=== PATIENT | female | born 1970 ===

== ENCOUNTER 2018-09-18 16:41 | Emergency (ER) | payer OTHER ==
[2018-09-18 16:49] VITALS: BMI 43.0
[2018-09-18 16:50] VITALS: RESP 18; O2SAT 99
[2018-09-18 18:18] LABS: BASO # 0.1 K/uL (0.0-0.2); BASO % 0.9 % (0.0-2.0); EOS # 0.5 K/uL (0.0-0.7); EOS % 4.4 % (0.0-4.0); HEMOGLOBIN 11.7 g/dL (11.0-16.0); LYMPH # 2.4 K/uL (1.0-4.3); LYMPH % 21.7 % (20.0-40.0); MEAN CELL VOLUME 77.3 fL (81.0-99.0); MEAN CORPUSCULAR HEMOGLOBIN 24.6 pg (27.0-31.0); MEAN CORPUSCULAR HGB CONC 31.8 g/dL (33.0-37.0); MEAN PLATELET VOLUME 10.1 fL (7.2-11.7); MONO # 0.8 K/uL (0.0-0.8); MONO % 6.9 % (0.0-10.0); NEUT # 7.5 K/uL (1.8-7.0); NEUT % 66.1 % (50.0-75.0); RBC 4.76 Mil/uL (3.80-5.20); WHITE BLOOD COUNT 11.3 K/uL (4.8-10.8)
[2018-09-18 18:21] LABS: BLOOD UREA NITROGEN 20 mg/dL (7-17); CALCIUM 9.3 mg/dl (8.6-10.4); GFR NON-AFRICAN AMERICAN 59
[2018-09-18 18:23] LABS: INR 1.2; PROTHROMBIN TIME 13.2 SECONDS (9.7-12.2)
[2018-09-18 18:26] LABS: ALB/GLOB RATIO 0.9 (1.0-2.1); ALT/SGPT 19 U/L (9-52); AST/SGOT 41 U/L (14-36)
--- NOTE | 2018-09-18 18:29 | C.PDOC ---
History Of Present Illness 48 yo female w/PMhx of NIDDM, HTN, CAD come in for evaluation of L>R legs pain, Left hip, lower back pain gradually developed for past 3 days after sustained mechanical fall. Pt reports, slipped and fell down, landed onto left hip side. Pt sts, pain is worsen over days, more over L>R lower legs, worse with ambulation. Pt denies head injury, LOC, syncope, headache, dizziness, visual changes, focal deficits, neck pain, CP, SOB, palpitation, abd. pain, N/V, incontinence, saddle anesthesia, denies weakness, deformity, sensory or vascular deficits to B/L LES. Ambulate to Ed w/assistance of cane. <Carmen Hendrix - Last Filed: 09/18/18 18:58> History Per: Patient <Carmen Hendrix - Last Filed: 09/18/18 18:58> <Toyin Jack - Last Filed: 09/18/18 21:08> Time Seen by Provider: 09/18/18 17:19 Chief Complaint (Nursing): Lower Extremity Problem/Injury Past Medical History Reviewed: Historical Data, Nursing Documentation, Vital Signs Vital Signs: Last Vital Signs Temp 98.6 F 09/18/18 16:50 Pulse 89 09/18/18 16:50 Resp 18 09/18/18 16:50 BP 125/79 09/18/18 16:50 Pulse Ox 99 09/18/18 16:50 - Medical History PMH: Asthma, HTN, Hypercholesterolemia Family History: States: No Known Family Hx - Social History Hx Tobacco Use: No Hx Alcohol Use: No Hx Substance Use: No - Immunization History Hx Tetanus Toxoid Vaccination: No Hx Influenza Vaccination: No Hx Pneumococcal Vaccination: No <Carmen Hendrix - Last Filed: 09/18/18 18:58> Vital Signs: Last Vital Signs Temp 98.6 F 09/18/18 16:50 Pulse 89 09/18/18 16:50 Resp 18 09/18/18 16:50 BP 125/79 09/18/18 16:50 Pulse Ox 99 09/18/18 18:59 <Toyin Jack - Last Filed: 09/18/18 21:08> Review Of Systems Except As Marked, All Systems Reviewed And Found Negative. Constitutional: Negative for: Fever, Chills ENT: Negative for: Throat Pain, Throat Swelling Cardiovascular: Negative for: Chest Pain, Palpitations Respiratory: Negative for: Cough, Shortness of Breath, Wheezing Gastrointestinal: Negative for: Nausea, Vomiting, Abdominal Pain Genitourinary: Negative for: Incontinence Musculoskeletal: Positive for: Back Pain, Leg Pain. Negative for: Neck Pain Skin: Negative for: Bruising Neurological: Negative for: Weakness, Numbness, Altered Mental Status, Headache, Dizziness <Carmen Hendrix - Last Filed: 09/18/18 18:58> Physical Exam - Physical Exam Appears: Well, Non-toxic, No Acute Distress Skin: Normal Color, Warm, Dry, No Rash Head: Atraumatic, Normacephalic Eye(s): bilateral: PERRL Ear(s): Bilateral: Normal Nose: No Flaring, No Deformity, No Tenderness Oral Mucosa: Moist Throat: No Drooling Neck: Normal ROM, Trachea Midline, No Midline Cervical Tenderness, No Paracervical Tenderness, No Step Off Deformity, Supple Chest: Symmetrical, No Deformity, No Tenderness Cardiovascular: Rhythm Regular, No Murmur, No JVD Respiratory: No Decreased Breath Sounds, No Accessory Muscle Use, No Stridor, No Wheezing Gastrointestinal/Abdominal: Soft, No Tenderness, No Distention, No Guarding Back: No CVA Tenderness, No Vertebral Tenderness, Paraspinal Tenderness (diffuse lumbar) Extremity: Normal ROM, Tenderness (diffuse B/L lower legs tenderness L>R , tenderness overlying Left hip area. NO palpalbe defomrity, no skin changes.), Calf Tenderness (L>R), Capillary Refill (less than 2sec to B/L feet), No Deformity, Swelling (L>E lower leg extend down to ankle.) DTR: Knee (R): 2+, Knee (L): 2+, Ankle (R): 2+, Ankle (L): 2+ Neurological/Psych: Oriented x3, Normal Speech, Normal Motor, Normal Sensation, Normal Reflexes <Carmen Hendrix - Last Filed: 09/18/18 18:58> ED Course And Treatment - Laboratory Results Result Diagrams: 09/18/18 17:58 09/18/18 17:58 Urine POC: Negative O2 Sat by Pulse Oximetry: 99 Pulse Ox Interpretation: Normal Progress Note: At 18:30, was called by radiologist, high suspicion for L5-S1 fx, high recommend STAT MRI of Lspine <Carmen Hendrix - Last Filed: 09/18/18 18:58> - Laboratory Results Result Diagrams: 09/18/18 17:58 09/18/18 17:58 - Other Rad B/L hip X-Ray: Interpreted by Me Interpretation: No acute fx/dislocation noted B/L knee X-Ray: Interpreted by Me Interpretation: No acute fx/dislocation noted B/L tib/fib X-Ray: Interpreted by Me Interpretation: No acute fx/dislocation noted <Toyin Jack - Last Filed: 09/18/18 21:08> Disposition - Disposition Disposition Time: 18:58 <Carmen Hendrix - Last Filed: 09/18/18 18:58> <Toyin Jack - Last Filed: 09/18/18 21:08> - Disposition Disposition: HOME/ ROUTINE Condition: STABLE Additional Instructions: GAGANDEEP XIONG, thank you for letting us take care of you today. Your provider was Toyin Jack MD and you were treated for FALL LT LEG PAIN. The emergency medical care you received today was directed at your acute symptoms. If you were prescribed any medication, please fill it and take as directed. It may take several days for your symptoms to resolve. Return to the Emergency Department if your symptoms worsen, do not improve, or if you have any other problems. Please contact your doctor or call one of the physicians/clinics you have been referred to that are listed on the Patient Visit Information form that is included in your discharge packet. Bring any paperwork you were given at discharge with you along with any medications you are taking to your follow up visit. Our treatment cannot replace ongoing medical care by a primary care provider outside of the emergency department. Thank you for allowing the [facility] team to be part of your care today. If you had an X-Ray or CT scan: A Radiologist will review the ED reading if any change in treatment is needed we will contact you. If you had a blood, urine, or wound culture: It will take several days for the results, if any change in treatment is needed we will contact you. If you had an STI test: It will take 48 hours for the results. Please call after 1 week if you have not heard back. Instructions: Hip Pointer, Contusion (DC) Forms: [employer] (English) Print Language: INDIAN - Clinical Impression Clinical Impression: Back injury, Hip injury, Lower leg edema Physician Patient Turnover Patient Signed Over To: Toyin Jack Handoff Comments: MRI, xray, re-eval, dispo <Carmen Hendrix - Last Filed: 09/18/18 18:58> Addendum Addendum: 09/18/18 MRI results reviewed: Name: GAGANDEEP XIONG Exam Date: Sep 18, 2018 7:00:13 PM EDT Modality Type: MR\SD Description: MR - LUMBAR SPINE Gender: F Laterality: Not applicable : 68 Referring Physician: Carmen Hendrix (NATALIE) CLINICAL HISTORY: INJURY R/O L5 FX PT FELL 09/09/18 LBP GOES DOWN LT LEG WITH SWELLING. COMPARISON: Correlation is made with CT of the lumbar spine performed at same date. TECHNIQUE: MRI of the lumbar spine was performed utilizing multiple sequences in axial and sagittal planes without IV contrast material. COMMENTS: The visualized osseous elements are intact with no evidence of fracture. The marrow signals are within normal limits. The normal lordotic curvature of the lumbar spine is well maintained. The conus medullaris and cauda equina are within normal limits. There is transitional vertebral body and the study is interpreted with presumption that there is partial lumbarization of S1. There is grade-1 anterolisthesis of L5 over S1 measures 5 mm. There is multilevel degenerative spondylosis especially severe at L4-L5. At this level there is severe loss of disc space height present. There are type-2 Modic changes and anterior and posterior marginal osteophytosis. There is a 2 x 1.2 cm hemangioma seen within L1 vertebral body. Evaluation of individual levels present the following: L5-S1, there is a broad based disc osteophyte complex present. There is moderate bilateral foraminal stenosis and mild canal stenosis. Spondylolisthesis and bilateral hypertrophic facet disease is seen. L4-L5, annular tear with broad central herniated disc measures 4 mm indents the ventral thecal sac. Superimposed bulge is seen. There is mild to moderate bilateral foraminal stenosis. Canal is borderline stenotic. Hypertrophic facet disease and ligamentum flavum hypertrophy contribute. Bilateral facet joint effusions are present. L3-L4, central herniated disc measures up to 3 mm indents the ventral thecal sac. The canal and foramina are patent. L1-L2 and L2-L3 levels are unremarkable. IMPRESSION: 1. Transitional vertebral body and the study is interpreted with presumption that there is partial lumbarization of S1. 2. Grade-1 anterolisthesis of L5 over S1. 3. Hemangioma within L1 vertebral body. 4. L5-S1, broad based disc osteophyte complex. Moderate bilateral foraminal stenosis and mild canal stenosis. Spondylolisthesis and bilateral hypertrophic facet disease is seen. 5. L4-L5, annular tear with broad central herniated disc indents the ventral thecal sac. Superimposed bulge. Mild to moderate bilateral foraminal stenosis. Canal is borderline stenotic. Hypertrophic facet disease and ligamentum flavum hypertrophy contribute. Bilateral facet joint effusions are present. 6. L3-L4, central herniated disc indents the ventral thecal sac. Results discussed w/ patient. <Toyin Jack - Last Filed: 09/18/18 21:08>
[2018-09-18 18:49] LABS: SQUAMOUS EPITHIAL 3 /hpf (0-5); URINE BACTERIA RARE (<OCC); URINE BILIRUBIN NEGATIVE (NEGATIVE); URINE BLOOD NEGATIVE (NEGATIVE); URINE CLARITY Hazy (Clear); URINE COLOR Yellow (YELLOW); URINE GLUCOSE (UA) 1+ mg/dL (Normal); URINE LEUKOCYTE ESTERASE NEG Leu/uL (Negative); URINE PROTEIN 2+ mg/dL (NEGATIVE); URINE UROBILINOGEN NORMAL mg/dL (0.2-1.0)
[2018-09-18 20:38] VITALS: BP 133/69; PULSE 67
[2018-09-18 21:17] VITALS: TEMP 97.5
--- NOTE | 2018-09-19 08:49 | RAD ---
Date of service: 09/18/2018 PROCEDURE: Bilateral Knee Radiographs. HISTORY: Injury. COMPARISON: Present correlation made with concurrent radiographs of bilateral tibiae/fibulae. FINDINGS: BONES: No evidence displaced fracture nor dislocation. The osseous structures appear intact.. JOINTS: There is mild bilateral space narrowing SOFT TISSUES: Right Knee: Normal. Left Knee: Normal. JOINT EFFUSION: No significant joint effusions are identified. OTHER FINDINGS: Bilateral vascular calcifications are IMPRESSION: No evidence of displaced fracture. Mild degenerative osteoarthritis.
--- NOTE | 2018-09-19 09:00 | RAD ---
Date of service: 09/18/2018 PROCEDURE: Radiographs of the bilateral Tibiae and Fibulae. HISTORY: Injury COMPARISON: Correlation made with concurrent radiographs of both knees. TECHNIQUE: Frontal and lateral views obtained. FINDINGS: BONES: RIGHT TIBIA: No fracture or destructive lesion. LEFT TIBIA: No fracture or destructive lesion. JOINT SPACES: Mild joint space narrowing both knees. SOFT TISSUES: Vascular calcifications are present bilaterally... Small elliptical shaped calcifications within the pretibial soft tissues right tibia/fibula. OTHER FINDINGS: None. IMPRESSION: No evidence of acute displaced fracture nor dislocation
--- NOTE | 2018-09-19 09:29 | RAD ---
PROCEDURE: Radiographs of the pelvis and bilateral hips HISTORY: Injury COMPARISON: None. FINDINGS: BONES: Pelvis: Unremarkable. Right hip:Unremarkable. Left hip:Unremarkable. JOINTS: Minimal spurring along the superolateral margins of both acetabular roofs. Sacroiliac Joints: Unremarkable. Pubic symphysis: Unremarkable. SOFT TISSUES: Normal. OTHER FINDINGS: None. IMPRESSION: No evidence of acute displaced fracture nor dislocation.
--- NOTE | 2018-09-19 09:54 | CT ---
Date of service: 09/18/2018 PROCEDURE: CT Lumbar Spine without contrast HISTORY: Injury. COMPARISON: Correlation made with concurrent MRI of the lumbar spine. TECHNIQUE: Axial computed tomography images were obtained of the lumbar spine without the use of intravenous contrast. Coronal and sagittal reformatted images were created and reviewed. Radiation dose: Total exam DLP = 1873.72 mGy-cm. This CT exam was performed using one or more of the following dose reduction techniques: Automated exposure control, adjustment of the mA and/or kV according to patient size, and/or use of iterative reconstruction technique. FINDINGS: VERTEBRAE: No acute compression fractures nor retropulsed fragments.. Anterior subluxation of L4 over L5 with apparent degenerative partial fusion changes.. Vertebral bodies otherwise exhibit normal alignment. Facets normally aligned. Note made of a hemangioma within the T12 segment. DISCS/SPINAL CANAL/NEURAL FORAMINA: L1-2: Unremarkable. L2-3: Unremarkable. L3-4: There is disc space narrowing more so along the posterior disc margin with vacuum disc phenomena. Small central and bilateral broad-based disc bulge extends into the proximal inferior margins of both exit foramina. Minimal calcification either of the posterior longitudinal ligament or posterior annulus noted at this level. Changes result in mild flattening of the ventral surface of the thecal sac. Facet joints are hypertrophic. Exit foramina are mildly narrowed bilaterally. L4-5: There marked disc space narrowing and apparent partial degenerative fusion changes of the L4-L5 vertebral body segments persistent anterior subluxation L4 over L5. There appears to be slight uncovering of the posterior superior surface of disc due to the aforementioned anterior subluxation with associated small left parasagittal protrusion component which results in mild compressive effects on the left anterolateral border of thecal sac. These changes are seen to better advantage on concurrent MRI... Facet joints are hypertrophic. Central canal appears adequate however the exit foramina are stenotic bilaterally. L5-S1: Unremarkable. PARASPINAL SOFT TISSUES: Unremarkable. OTHER FINDINGS: None. IMPRESSION: No acute fractures. There is anterior subluxation L4 over L5 with apparent degenerative partial fusion changes L4-L5 vertebral body segments. Multilevel degenerative spondylosis most notably affecting the L4-L5 and L3-L4 levels as described.
--- NOTE | 2018-09-20 08:46 | MRI ---
Date of service: 09/18/2018 PROCEDURE: MR LUMBAR SPINE WITHOUT CONTRAST HISTORY: INJURY; RULE OUT L5 FRACTURE. COMPARISON: Correlation made with concurrent CT scan of the lumbar spine. TECHNIQUE: Multiecho multiplanar sequences were performed through the lumbar spine without the use of intravenous contrast. FINDINGS: The there are no acute compression fractures nor retropulsed fragments. Vertebral bodies exhibit relatively normal stature. Redemonstrated is an approximately grade 1 spondylolisthesis at the L4-L5 level felt to be secondary to significant hypertrophic facets as no definitive pars defects are identified. The remaining vertebral bodies otherwise exhibit normal alignment. Facets normally aligned.. Additionally, partial degenerative fusion changes. Of the L4-L5 vertebral body segments also again seen Small hemangioma again seen within the T12 segment T12-L1: Mild age related disc desiccation however disc space height maintained. No disc herniation or significant disc bulge. Facets are slightly overgrown. Central canal and exit foramina appear adequate L1-2: Mild age related disc desiccation however disc space height maintained. No disc herniation or significant disc bulge. Facets are slightly overgrown. Central canal and exit foramina appear adequate L2-3: There is mild disc desiccation and posterior disc space narrowing. Small central and left parasagittal disc herniation with superior subligamentous small disc herniation that extends to approximately the inferior 1/2 of the L2 vertebral body segment. Changes result in compression of the ventral surface of the thecal sac centrally and bilaterally at the disc space level and extending to the left as the subligamentous disc extends superiorly.. There is mild posterior displacement of ventrally located nerve roots of the cauda equina. The overall central bony canal does appear adequate however. Facets are hypertrophic. Exit foramina are also adequate despite extension of disc into the proximal inferior margins of both exit foramina. L3-4: There is disc space narrowing more so along the posterior disc space margin with mild subchondral cystic changes and eburnation. There is also some very minimal type 1 discogenic sclerosis more so involving the inferior L3 endplate. Small central and bilateral disc bulge associated with tiny calcification of the posterior annulus or posterior longitudinal ligament.. Disc extends into the proximal inferior margins of both exit foramina. There is mild compression of the ventral surface of the thecal sac. Central canal is marginal to minimally narrowed. Facets are hypertrophic. Exit foramina are also narrowed more so on the right due to encroaching disc L4-5: In addition to grade 1 spondylolisthesis, there is significant disc space narrowing with what appears represent partial fusion changes of the L4-L5 segments. There is uncovering of the posterior superior surface of the disc due to the anterior subluxation. In addition, there is a small left parasagittal disc herniation component that extends inferiorly over short distance dorsal to the superior left parasagittal 1/2 of the L5 segment and results in mild compressive effects on the left anterolateral border of the thecal sac. Type 2 discogenic sclerosis present of. Facets are quite hypertrophic with bilateral foraminal stenosis. L5-S1: No disc herniation, spinal canal stenosis or neural foraminal narrowing. OTHER FINDINGS: None. IMPRESSION: No acute fractures however there is grade 1 spondylolisthesis L4-L5 level with what appears to be partial fusion changes of the L4 and L5 segments. Degenerative disc changes with bilateral foraminal stenosis present at this level as well as the L 3 L4 level. There is also a small disk herniation at the L2-L3 level with superior subligamentous extension of disc material as detailed above.
== END 2018-09-18 21:22 | disposition home or self-care (01) ==
LOC: C.ER 16:41
DX: S39.92XA Unspecified injury of lower back, initial encounter (principal); S79.912A Unspecified injury of left hip, initial encounter; W01.0XXA Fall on same level from slipping, tripping and stumbling without subsequent striking against object, initial encounter; R60.0 Localized edema; I10 Essential (primary) hypertension; I25.10 Atherosclerotic heart disease of native coronary artery without angina pectoris; E11.9 Type 2 diabetes mellitus without complications; E78.00 Pure hypercholesterolemia, unspecified
CPT/HCPCS: 72131; 72148; 73521; 73562; 73590; 80053; 81001; 85025; 85610; 85730; 96374; 99284; J1885

== ENCOUNTER 2018-09-25 16:07 | Inpatient (IN) | payer OTHER ==
[2018-09-25 16:07] VITALS: BMI 43.0
--- NOTE | 2018-09-25 17:16 | C.PDOC ---
History Of Present Illness 48 year old female with a history of coronary artery disease and diabetes presents to the ED for evaluation of worsening left knee pain that radiates distally to the rest of the left leg for 1 week. Patient reports she fell 10x days ago, with a prior ED visit 1 week ago; pt had neg x-rays of the knees/tibia/fibula at that time. pt has been taking 400 mg of Motrin every 4 hours with no improvement. Patient is unable to ambulate due to pain. Denies fever, chills, tingling, numbness, and any other associated symptoms. Time Seen by Provider: 09/25/18 16:51 Chief Complaint (Nursing): Lower Extremity Problem/Injury History Per: Patient, Family Onset/Duration Of Symptoms: Days (8) Current Symptoms Are (Timing): Worse Severity: Moderate - Hip Description Of Injury: Fell - Knee Description Of Injury: Fell Past Medical History Reviewed: Historical Data, Nursing Documentation, Vital Signs Vital Signs: Last Vital Signs Temp 98.7 F 09/25/18 16:28 Pulse 79 09/25/18 16:28 Resp 20 09/25/18 16:28 BP 130/78 09/25/18 16:28 Pulse Ox 100 09/25/18 16:28 - Medical History PMH: Arthritis, Asthma, Diabetes, HTN, Hypercholesterolemia Surgical History: Cholecystectomy Family History: States: Unknown Family Hx - Social History Hx Tobacco Use: No Hx Alcohol Use: No Hx Substance Use: No - Immunization History Hx Tetanus Toxoid Vaccination: No Hx Influenza Vaccination: No Hx Pneumococcal Vaccination: No Review Of Systems Constitutional: Negative for: Fever, Chills Cardiovascular: Negative for: Chest Pain Respiratory: Negative for: Cough, Shortness of Breath Gastrointestinal: Negative for: Abdominal Pain Genitourinary: Negative for: Dysuria Musculoskeletal: Positive for: Other (leftlower extremity pain) Skin: Positive for: Other (left second toe swollen and discolored.) Neurological: Negative for: Weakness, Numbness, Incoordination Physical Exam - Physical Exam Appears: Non-toxic, In Acute Distress (painful), Other (obese.) Skin: Warm, Dry Head: Atraumatic, Normacephalic Eye(s): bilateral: Normal Inspection Oral Mucosa: Moist Chest: Symmetrical, No Deformity Cardiovascular: Rhythm Regular, No Murmur Respiratory: Normal Breath Sounds, No Rales, No Rhonchi, No Wheezing Gastrointestinal/Abdominal: Bowel Sounds, Soft, No Tenderness, No Guarding, No Rebound Extremity: No Normal ROM (dec rom left knee), Tenderness (diffuse tenderness to the left lower extremity. ), Pedal Edema (left lower ext), Calf Tenderness (left), Capillary Refill (less than 2 seconds.), No Deformity, Swelling (dorsum left foot swollen ), Other (warmth to left foot with dorsal swelling. 1 mm ulcer to tip left second toe,. 2nd toe purplish with blister. ) Pulses: Left Dorsalis Pedis: Decreased (+1 ), Right Dorsalis Pedis: Decreased (+1) Neurological/Psych: Oriented x3, Normal Speech, Normal Cognition, Normal Motor, Normal Sensation ED Course And Treatment - Laboratory Results Result Diagrams: 09/27/18 08:05 09/27/18 08:05 O2 Sat by Pulse Oximetry: 100 (RA) Pulse Ox Interpretation: Normal Medical Decision Making Medical Decision Making: Plan: -Blood sent. Blood culture D-Dimer Ultram discussed with Dr Painting, will admit pt to his service. Disposition Discussed With .: Ivan Painting Doctor Will See Patient In The: Hospital - Disposition Disposition: HOSPITALIZED Disposition Time: 19:50 Condition: GOOD - Clinical Impression Clinical Impression: Diabetic ulcer of toe of left foot, Leg pain, left - PA / PHARMACY PICKING TECH / Resident Statement MD/DO has reviewed & agrees with the documentation as recorded. - Scribe Statement The provider has reviewed the documentation as recorded by the Scribe (Betty Moser) All medical record entries made by the Scribe were at my direction and personally dictated by me. I have reviewed the chart and agree that the record accurately reflects my personal performance of the history, physical exam, medical decision making, and the department course for this patient. I have also personally directed, reviewed, and agree with the discharge instructions and disposition.
[2018-09-25 18:23] LABS: BASO # 0.1 K/uL (0.0-0.2); BASO % 0.8 % (0.0-2.0); EOS # 0.7 K/uL (0.0-0.7); EOS % 6.9 % (0.0-4.0); HEMOGLOBIN 11.6 g/dL (11.0-16.0); LYMPH # 2.8 K/uL (1.0-4.3); LYMPH % 28.5 % (20.0-40.0); MEAN CELL VOLUME 77.1 fL (81.0-99.0); MEAN CORPUSCULAR HEMOGLOBIN 24.4 pg (27.0-31.0); MEAN CORPUSCULAR HGB CONC 31.6 g/dL (33.0-37.0); MEAN PLATELET VOLUME 9.9 fL (7.2-11.7); MONO # 0.8 K/uL (0.0-0.8); MONO % 8.6 % (0.0-10.0); NEUT # 5.3 K/uL (1.8-7.0); NEUT % 55.2 % (50.0-75.0); NRBC % 0.1 % (0.0-2.0); RBC 4.75 Mil/uL (3.80-5.20); RED CELL DISTRIBUTION WIDTH 13.9 % (11.5-14.5); WHITE BLOOD COUNT 9.7 K/uL (4.8-10.8)
[2018-09-25 18:28] LABS: INR 1.1; PROTHROMBIN TIME 12.4 SECONDS (9.7-12.2)
[2018-09-25 18:31] LABS: ALB/GLOB RATIO 0.9 (1.0-2.1); ALBUMIN 3.9 g/dL (3.5-5.0); ALT/SGPT 16 U/L (9-52); AST/SGOT 22 U/L (14-36); BLOOD UREA NITROGEN 24 mg/dL (7-17); CALCIUM 8.9 mg/dl (8.6-10.4); GFR NON-AFRICAN AMERICAN 59
[2018-09-25] MEDS ORDERED: Enoxaparin 100 mg Syringe SC STA (18:38)
[2018-09-25] MEDS ORDERED: Enoxaparin 100 mg Syringe ONE (18:50)
[2018-09-25] MEDS ORDERED: Albuterol HFA 90 mcg/actuation (8 g) IH PRN (21:36)
[2018-09-26] MEDS ORDERED: (Novolog) Insulin Aspart, Recombinant 100 u/ml 10 ml vial SC SCH (07:30)
[2018-09-26] MEDS: (Novolog) Insulin Aspart, Recombinant 100 u/ml 10 ml vial SC SCH ×7 (08:09→21:24)
[2018-09-26 08:21] LABS: BASO # 0.1 K/uL (0.0-0.2); BASO % 0.6 % (0.0-2.0); EOS # 0.5 K/uL (0.0-0.7); EOS % 6.6 % (0.0-4.0); HEMOGLOBIN 10.5 g/dL (11.0-16.0); LYMPH # 2.5 K/uL (1.0-4.3); LYMPH % 30.2 % (20.0-40.0); MEAN CELL VOLUME 76.9 fL (81.0-99.0); MEAN CORPUSCULAR HEMOGLOBIN 25.2 pg (27.0-31.0); MEAN CORPUSCULAR HGB CONC 32.8 g/dL (33.0-37.0); MEAN PLATELET VOLUME 10.3 fL (7.2-11.7); MONO # 0.7 K/uL (0.0-0.8); MONO % 8.8 % (0.0-10.0); NEUT # 4.4 K/uL (1.8-7.0); NEUT % 53.8 % (50.0-75.0); RBC 4.17 Mil/uL (3.80-5.20); RED CELL DISTRIBUTION WIDTH 13.8 % (11.5-14.5); WHITE BLOOD COUNT 8.2 K/uL (4.8-10.8)
[2018-09-26 08:38] LABS: ALBUMIN 3.3 g/dL (3.5-5.0); BLOOD UREA NITROGEN 20 mg/dL (7-17); CALCIUM 8.6 mg/dl (8.6-10.4); GFR NON-AFRICAN AMERICAN > 60
[2018-09-26 08:39] LABS: ALB/GLOB RATIO 0.9 (1.0-2.1); ALT/SGPT 20 U/L (9-52); AST/SGOT 19 U/L (14-36); HDL CHOLESTEROL 31 mg/dL (30-70)
[2018-09-26 08:47] LABS: LDL CHOLESTEROL 99 mg/dL (0-129)
[2018-09-26 08:56] LABS: T4 6.38 ug/dL (5.5-11.0)
[2018-09-26] MEDS ORDERED: Insulin Detemir 100 units/ml Vial (Levemir) SC SCH (10:00)
[2018-09-26] MEDS: Enoxaparin 40 mg Syringe SC SCH (10:36)
[2018-09-26] MEDS: Metoprolol Succinate 25 mg XL Tab PO SCH (10:36)
--- NOTE | 2018-09-26 10:38 | CON ---
DATE: 09/25/2018 ENDOCRINOLOGY CONSULT LOCATION: Room 369. HISTORY OF PRESENT ILLNESS: This is a 48-year-old female with known history of type 2 insulin requiring diabetes, now admitted with severe left knee arthralgia and painful paresthesias following a recent fall and is now being referred for diabetic evaluation and management. PAST MEDICAL HISTORY: History of type 2 insulin requiring diabetes on a combination of basal insulin given as Levemir at a variable dose of 50 to 60 units once daily with NovoLog given as per sliding scale before meals, history of hypertension and dyslipidemia, history of chronic bronchial asthma, also history of diffuse osteoarthritis with lower back pain. FAMILY HISTORY: Positive for hypertension and diabetes. SOCIAL HISTORY: The patient has a supportive family. No known substance use. REVIEW OF SYSTEMS: As mentioned above. Admits to generalized body weakness with episodic bouts of dizziness and lightheadedness, worse on the day of admission. No chest pains or palpitations. Her oral intake has been variable, but improved otherwise with occasional dyspepsia and a history of constipation. No recent alterations of bowel and urinary pattern. PHYSICAL EXAMINATION: GENERAL: This is an obese female in no apparent distress. VITAL SIGNS: Blood pressure 140/80, pulse of 90 beats per minute and regular, temperature 98, respirations 20, height is 5 feet 2 inches, weight is 233 pounds. HEENT: Head: Normocephalic. Eyes: Anicteric with pink conjunctivae. Funduscopy not possible at this time. Ears, nose and throat otherwise normal. NECK: Supple. Thyroid gland is normal size. No carotid bruits or cervical adenopathy. HEART: Adynamic precordium. S1 and S2 rapid and regular. LUNGS: Clear to auscultation. ABDOMEN: Obese and soft with positive bowel sounds. EXTREMITIES: No peripheral edema. Pulse are +2 bilaterally. LABORATORY DATA: Her chemistries showed a BUN of 24, sodium 138, potassium 4.9, chloride 102, CO2 of 27, glucose 180, and creatinine 1. ASSESSMENT: This is a 48-year-old female with uncontrolled and decompensated type 2 insulin requiring diabetes, presenting here with severe left knee pain, painful arthralgias and paresthesias from a recent fall and is now undergoing orthopedic evaluation and management and is also being referred for diabetic evaluation and management. PLAN OF MANAGEMENT: We will initiate a more physiologic basal and bolus insulin drug combination and add NovoLog given as 6 units subcu t.i.d. before meals to start tomorrow morning as ordered. We will add Levemir given as 20 units subcu at bedtime daily to start tonight. We will modify the coverage scale to obviate hypoglycemia and detailed orders have been given. We will obtain a hemoglobin A1c to confirm her prior glycemic control and baseline thyroid function studies and lipid panel and serum cortisol will be ordered. We will initiate dietary education and dietary instructions to include healthy food choices with less carbohydrate to protein ratio and also weight loss efforts accordingly. We will follow. Christie Traore MD
[2018-09-26] MEDS: Acetaminophen-Codeine 300/30 mg Tab PO PRN (15:10)
--- NOTE | 2018-09-26 16:28 | PN ---
DATE: 09/26/2018 ENDOCRINOLOGY FOLLOWUP NOTE LOCATION: In room 369. SUBJECTIVE: This is a 48-year-old female with recent uncontrolled type 2 insulin-requiring diabetes, now being followed closely for metabolic management. Her glycemic levels are fluctuating, but much improved at this time and the glucose values overnight have ranged from 123 to 161 mg/dL. LABORATORY DATA: Her chemistries showed a BUN of 20, sodium 135, potassium 4.4, chloride 103, CO2 of 28, glucose 135, and creatinine 0.9. Her hemoglobin A1c; however, is elevated at 11% indicative of suboptimal metabolic control of her diabetic condition even prior to this admission. ASSESSMENT AND PLAN: So at this time, we will continue the same basal and bolus insulin regimen to allow for dose equilibration and keep her on the NovoLog given as 6 units subcutaneously t.i.d. before meals as ordered. We will also continue the Levemir given as 20 units subcutaneously at bedtime daily as given. She has ongoing intravenous antibiotic management for lower extremity cellulitis and a toe infection in the left foot as noted. We will obtain serial chemistries and supplement accordingly as needed. We will follow. Christie Traore MD
--- NOTE | 2018-09-26 19:33 | CP.PCM.CON ---
History of Present Illness - History of Present Illness History of Present Illness: admitted with infected digit left 2nd toe failed out ppt rx Hx DM obesity OA TKR Review of Systems - Review of Systems All systems: reviewed and no additional remarkable complaints except Past Patient History - Past Social History Smoking Status: Never Smoked - CARDIAC Hx Hypercholesterolemia: Yes Hx Hypertension: Yes - PULMONARY Hx Asthma: Yes - ENDOCRINE/METABOLIC Hx Diabetes Mellitus Type 1: Yes - MUSCULOSKELETAL/RHEUMATOLOGICAL Hx Arthritis: Yes - PSYCHIATRIC Hx Substance Use: No - SURGICAL HISTORY Hx Cholecystectomy: Yes - ANESTHESIA Hx Anesthesia: Yes Hx Anesthesia Reactions: No Meds Allergies/Adverse Reactions: Allergies Allergy/AdvReac Type Severity Reaction Status Date / Time Penicillins Allergy Intermediate RASH Verified 09/18/18 17:03 - Medications Medications: Current Medications Acetaminophen/Codeine Phosphate (Tylenol/Codeine 300 Mg/30 Mg) 1 ea PO TID PRN PRN Reason: Pain, moderate (4-7) Last Admin: 09/26/18 15:10 Dose: 1 ea Albuterol (Ventolin Hfa 90 Mcg/Actuation (8 G)) 2 puff IH RQ6 PRN PRN Reason: Shortness of Breath Amlodipine Besylate (Norvasc) 2.5 mg PO DAILY [facility] Last Admin: 09/26/18 10:36 Dose: 2.5 mg Clopidogrel Bisulfate (Plavix) 75 mg PO DAILY [facility] Last Admin: 09/26/18 10:36 Dose: 75 mg Enoxaparin Sodium (Lovenox) 40 mg SC DAILY [facility] Last Admin: 09/26/18 10:36 Dose: 40 mg Gabapentin (Neurontin) 300 mg PO TID [facility] Last Admin: 09/26/18 17:16 Dose: 300 mg Hydrochlorothiazide (Microzide) 12.5 mg PO DAILY [facility] Last Admin: 09/26/18 10:36 Dose: 12.5 mg Influenza Virus Vaccine (Fluzone Quad [id number]) 60 mcg IM .ONCE ONE Stop: 09/27/18 10:01 Insulin Aspart (Novolog) 0 unit SC ACHS [facility] Last Admin: 09/26/18 17:11 Dose: 3 units Insulin Aspart (Novolog) 6 unit SC TIDAC [facility] Last Admin: 09/26/18 17:12 Dose: 6 units Insulin Detemir (Levemir) 20 unit SC HS [facility] Losartan Potassium (Cozaar) 50 mg PO DAILY [facility] Last Admin: 09/26/18 10:36 Dose: 50 mg Metoprolol Succinate (Toprol Xl) 25 mg PO DAILY [facility] Last Admin: 09/26/18 10:36 Dose: 25 mg Pneumococcal Polyvalent Vaccine (Pneumovax 23 Vaccine) 0.5 ml IM .ONCE ONE Stop: 09/27/18 10:01 Rosuvastatin Calcium (Crestor) 40 mg PO DAILY [facility] Last Admin: 09/26/18 10:36 Dose: 40 mg Physical Exam - Constitutional Appears: Chronically Ill - Head Exam Head Exam: ATRAUMATIC - Eye Exam Eye Exam: absent: Scleral icterus - ENT Exam ENT Exam: Mucous Membranes Dry - Neck Exam Neck exam: Negative for: Lymphadenopathy - Respiratory Exam Respiratory Exam: Decreased Breath Sounds - Cardiovascular Exam Cardiovascular Exam: REGULAR RHYTHM - GI/Abdominal Exam GI & Abdominal Exam: Diminished Bowel Sounds, Soft - Rectal Exam Rectal Exam: Deferred - Exam Exam: NORMAL INSPECTION - Extremities Exam Extremities exam: Positive for: pedal edema, tenderness - Back Exam Back exam: absent: CVA tenderness (L) - Neurological Exam Neurological exam: Alert - Psychiatric Exam Psychiatric exam: Normal Mood - Skin Skin Exam: Dry Results - Vital Signs Recent Vital Signs: Last Vital Signs Temp 99.2 F 09/26/18 15:47 Pulse 77 09/26/18 15:47 Resp 20 09/26/18 15:47 BP 123/73 09/26/18 15:47 Pulse Ox 98 09/26/18 16:00 - Labs Result Diagrams: 09/27/18 08:05 09/27/18 08:05 Labs: Laboratory Results - last 24 hr 09/25/18 09/26/18 09/26/18 21:58 07:07 08:09 WBC RBC Hgb Hct MCV MCH MCHC RDW Plt Count MPV Neut % (Auto) Lymph % (Auto) [place] % (Auto) Eos % (Auto) Baso % (Auto) Neut # (Auto) Lymph # (Auto) [place] # (Auto) Eos # (Auto) Baso # (Auto) Sodium Potassium Chloride Carbon Dioxide Anion Gap BUN Creatinine Est GFR ( Amer) Est GFR (Non-Af Amer) POC Glucose (mg/dL) 161 H 123 H Random Glucose Hemoglobin A1c 11.0 H Calcium Phosphorus Magnesium Total Bilirubin AST ALT Alkaline Phosphatase Total Protein Albumin Globulin Albumin/Globulin Ratio Triglycerides Cholesterol LDL Cholesterol Direct HDL Cholesterol Thyroxine (T4) TSH 3rd Generation Cortisol AM Sample 09/26/18 09/26/18 09/26/18 08:09 08:09 08:09 WBC 8.2 RBC 4.17 Hgb 10.5 L Hct 32.1 L MCV 76.9 L MCH 25.2 L MCHC 32.8 L RDW 13.8 Plt Count 241 MPV 10.3 Neut % (Auto) 53.8 Lymph % (Auto) 30.2 [place] % (Auto) 8.8 Eos % (Auto) 6.6 H Baso % (Auto) 0.6 Neut # (Auto) 4.4 Lymph # (Auto) 2.5 [place] # (Auto) 0.7 Eos # (Auto) 0.5 Baso # (Auto) 0.1 Sodium 135 Potassium 4.4 Chloride 103 Carbon Dioxide 28 Anion Gap 8 L BUN 20 H Creatinine 0.9 Est GFR ( Amer) > 60 Est GFR (Non-Af Amer) > 60 POC Glucose (mg/dL) Random Glucose 135 H Hemoglobin A1c Calcium 8.6 Phosphorus 2.9 Magnesium 1.8 Total Bilirubin 1.0 AST 19 ALT 20 Alkaline Phosphatase 110 Total Protein 6.9 Albumin 3.3 L Globulin 3.6 Albumin/Globulin Ratio 0.9 L Triglycerides 180 H Cholesterol 155 LDL Cholesterol Direct 99 HDL Cholesterol 31 Thyroxine (T4) 6.38 TSH 3rd Generation 1.62 Cortisol AM Sample 5.5 09/26/18 09/26/18 11:32 16:08 WBC RBC Hgb Hct MCV MCH MCHC RDW Plt Count MPV Neut % (Auto) Lymph % (Auto) [place] % (Auto) Eos % (Auto) Baso % (Auto) Neut # (Auto) Lymph # (Auto) [place] # (Auto) Eos # (Auto) Baso # (Auto) Sodium Potassium Chloride Carbon Dioxide Anion Gap BUN Creatinine Est GFR ( Amer) Est GFR (Non-Af Amer) POC Glucose (mg/dL) 265 H 241 H Random Glucose Hemoglobin A1c Calcium Phosphorus Magnesium Total Bilirubin AST ALT Alkaline Phosphatase Total Protein Albumin Globulin Albumin/Globulin Ratio Triglycerides Cholesterol LDL Cholesterol Direct HDL Cholesterol Thyroxine (T4) TSH 3rd Generation Cortisol AM Sample Assessment & Plan (1) Cellulitis Status: Acute (2) Diabetes mellitus Status: Acute - Assessment and Plan (Free Text) Assessment: will obtain cultures podiatry eval IV antibiotics x rays and possible bone scan
[2018-09-26] MEDS: Aztreonam 1 GM in Sodium Chloride 0.9% 100 ML IVPB SCH (20:31)
[2018-09-26] MEDS: Insulin Detemir 100 units/ml Vial (Levemir) SC SCH (21:28)
--- NOTE | 2018-09-26 21:32 | CP.PCM.HP ---
History of Present Illness - History of Present Illness History of Present Illness: 48 years old female with PMH significant for HTN, Type II DM, Gastric Bypass and Hyperlipidemia who presents to ER complaining of pain in left leg. Patient denies headache, neck pain, chest pain, shortness of breath, abdominal pain or urinary symptoms. Present on Admission - Present on Admission Any Indicators Present on Admission: Yes History of Uncontrolled Diabetes: Yes Past Patient History - Past Social History Smoking Status: Never Smoked - CARDIAC Hx Hypercholesterolemia: Yes Hx Hypertension: Yes - PULMONARY Hx Asthma: Yes - ENDOCRINE/METABOLIC Hx Diabetes Mellitus Type 1: Yes - MUSCULOSKELETAL/RHEUMATOLOGICAL Hx Arthritis: Yes - PSYCHIATRIC Hx Substance Use: No - SURGICAL HISTORY Hx Cholecystectomy: Yes - ANESTHESIA Hx Anesthesia: Yes Hx Anesthesia Reactions: No Meds Allergies/Adverse Reactions: Allergies Allergy/AdvReac Type Severity Reaction Status Date / Time Penicillins Allergy Intermediate RASH Verified 09/18/18 17:03 Physical Exam - Constitutional Appears: Non-toxic, No Acute Distress - Head Exam Head Exam: ATRAUMATIC, NORMAL INSPECTION, NORMOCEPHALIC - Eye Exam Eye Exam: EOMI, Normal appearance, PERRL - ENT Exam ENT Exam: Mucous Membranes Moist, Normal Exam - Neck Exam Neck exam: Positive for: Full Rom, Normal Inspection - Respiratory Exam Respiratory Exam: Clear to Auscultation Bilateral, NORMAL BREATHING PATTERN - Cardiovascular Exam Cardiovascular Exam: REGULAR RHYTHM, +S1, +S2 - GI/Abdominal Exam GI & Abdominal Exam: Normal Bowel Sounds, Soft - Extremities Exam Extremities exam: Positive for: full ROM, normal inspection - Back Exam Back exam: FULL ROM, NORMAL INSPECTION - Neurological Exam Neurological exam: Alert, CN II-XII Intact, Oriented x3, Reflexes Normal - Psychiatric Exam Psychiatric exam: Normal Affect, Normal Mood Results - Vital Signs Recent Vital Signs: Last Vital Signs Temp 99.2 F 09/26/18 15:47 Pulse 77 09/26/18 15:47 Resp 20 09/26/18 15:47 BP 123/73 09/26/18 15:47 Pulse Ox 98 09/26/18 16:00 - Labs Result Diagrams: 09/26/18 08:09 09/26/18 08:09 Labs: Laboratory Results - last 24 hr 09/25/18 09/26/18 09/26/18 21:58 07:07 08:09 WBC RBC Hgb Hct MCV MCH MCHC RDW Plt Count MPV Neut % (Auto) Lymph % (Auto) [place] % (Auto) Eos % (Auto) Baso % (Auto) Neut # (Auto) Lymph # (Auto) [place] # (Auto) Eos # (Auto) Baso # (Auto) Sodium Potassium Chloride Carbon Dioxide Anion Gap BUN Creatinine Est GFR ( Amer) Est GFR (Non-Af Amer) POC Glucose (mg/dL) 161 H 123 H Random Glucose Hemoglobin A1c 11.0 H Calcium Phosphorus Magnesium Total Bilirubin AST ALT Alkaline Phosphatase Total Protein Albumin Globulin Albumin/Globulin Ratio Triglycerides Cholesterol LDL Cholesterol Direct HDL Cholesterol Thyroxine (T4) TSH 3rd Generation Cortisol AM Sample 09/26/18 09/26/18 09/26/18 08:09 08:09 08:09 WBC 8.2 RBC 4.17 Hgb 10.5 L Hct 32.1 L MCV 76.9 L MCH 25.2 L MCHC 32.8 L RDW 13.8 Plt Count 241 MPV 10.3 Neut % (Auto) 53.8 Lymph % (Auto) 30.2 [place] % (Auto) 8.8 Eos % (Auto) 6.6 H Baso % (Auto) 0.6 Neut # (Auto) 4.4 Lymph # (Auto) 2.5 [place] # (Auto) 0.7 Eos # (Auto) 0.5 Baso # (Auto) 0.1 Sodium 135 Potassium 4.4 Chloride 103 Carbon Dioxide 28 Anion Gap 8 L BUN 20 H Creatinine 0.9 Est GFR ( Amer) > 60 Est GFR (Non-Af Amer) > 60 POC Glucose (mg/dL) Random Glucose 135 H Hemoglobin A1c Calcium 8.6 Phosphorus 2.9 Magnesium 1.8 Total Bilirubin 1.0 AST 19 ALT 20 Alkaline Phosphatase 110 Total Protein 6.9 Albumin 3.3 L Globulin 3.6 Albumin/Globulin Ratio 0.9 L Triglycerides 180 H Cholesterol 155 LDL Cholesterol Direct 99 HDL Cholesterol 31 Thyroxine (T4) 6.38 TSH 3rd Generation 1.62 Cortisol AM Sample 5.5 09/26/18 09/26/18 09/26/18 11:32 16:08 21:08 WBC RBC Hgb Hct MCV MCH MCHC RDW Plt Count MPV Neut % (Auto) Lymph % (Auto) [place] % (Auto) Eos % (Auto) Baso % (Auto) Neut # (Auto) Lymph # (Auto) [place] # (Auto) Eos # (Auto) Baso # (Auto) Sodium Potassium Chloride Carbon Dioxide Anion Gap BUN Creatinine Est GFR ( Amer) Est GFR (Non-Af Amer) POC Glucose (mg/dL) 265 H 241 H 135 H Random Glucose Hemoglobin A1c Calcium Phosphorus Magnesium Total Bilirubin AST ALT Alkaline Phosphatase Total Protein Albumin Globulin Albumin/Globulin Ratio Triglycerides Cholesterol LDL Cholesterol Direct HDL Cholesterol Thyroxine (T4) TSH 3rd Generation Cortisol AM Sample Assessment & Plan (1) Cellulitis Assessment and Plan: IV Fluids. Aztreonam + Vanco IV. F/U Blood Culture. ID and Podiatry on board. F/U Blood Cultures. Status: Acute (2) Diabetes mellitus Assessment and Plan: Basal + Bolus Insulin. Accucheck with Insulin coverage. Status: Acute (3) Hypertension Assessment and Plan: Continue same treatment. Status: Acute
[2018-09-26] MEDS: Vancomycin 1 gm/NS 200 ml 1 GM/200 ML BAG IVPB SCH (21:51)
[2018-09-27] MEDS: Aztreonam 1 GM in Sodium Chloride 0.9% 100 ML IVPB SCH ×3 (04:01→21:17)
[2018-09-27] MEDS: (Novolog) Insulin Aspart, Recombinant 100 u/ml 10 ml vial SC SCH ×6 (07:38→21:20)
[2018-09-27 08:18] LABS: BASO # 0.1 K/uL (0.0-0.2); BASO % 0.8 % (0.0-2.0); EOS # 0.5 K/uL (0.0-0.7); HEMOGLOBIN 10.2 g/dL (11.0-16.0); LYMPH # 2.6 K/uL (1.0-4.3); MEAN CELL VOLUME 77.7 fL (81.0-99.0); MEAN CORPUSCULAR HEMOGLOBIN 25.2 pg (27.0-31.0); MEAN CORPUSCULAR HGB CONC 32.4 g/dL (33.0-37.0); MEAN PLATELET VOLUME 10.1 fL (7.2-11.7); MONO # 0.7 K/uL (0.0-0.8); MONO % 8.7 % (0.0-10.0); NEUT # 4.2 K/uL (1.8-7.0); NEUT % 52.5 % (50.0-75.0); RBC 4.06 Mil/uL (3.80-5.20); RED CELL DISTRIBUTION WIDTH 13.7 % (11.5-14.5)
[2018-09-27 08:47] LABS: ALB/GLOB RATIO 0.9 (1.0-2.1); ALBUMIN 3.2 g/dL (3.5-5.0); ALT/SGPT 17 U/L (9-52); AST/SGOT 19 U/L (14-36); BLOOD UREA NITROGEN 21 mg/dL (7-17); CALCIUM 8.4 mg/dl (8.6-10.4); GFR NON-AFRICAN AMERICAN 59
[2018-09-27] MEDS: Vancomycin 1 gm/NS 200 ml 1 GM/200 ML BAG IVPB SCH ×2 (08:49→21:25)
[2018-09-27] MEDS ORDERED: Influenza Vaccine 60 MCG/0.5 ML SYR (3 yr & up) IM ONE (10:00)
[2018-09-27] MEDS ORDERED: Pneumococcal 23-Valent Vaccine IM ONE (10:00)
[2018-09-27] MEDS: Metoprolol Succinate 25 mg XL Tab PO SCH (10:07)
[2018-09-27] MEDS: Enoxaparin 40 mg Syringe SC SCH (10:10)
--- NOTE | 2018-09-27 11:40 | RAD ---
Date of service: 09/27/2018 PROCEDURE: Bilateral Feet Radiographs. HISTORY: r/o OM left foot COMPARISON: None. FINDINGS: BONES: Right Foot: No fracture Left Foot: No fracture there is increased density increased swellingp and presumably lucency in and around a male of the 2nd toe suggested. The 2nd distal phalangeal cortex here is ill-defined and concerning for cortical destruction-osteomyelitis. JOINTS: Right Foot: Minimal 1st metatarsal-phalangeal joint arthrosis Left Foot: Minimal 1st metatarsal-phalangeal joint arthrosis SOFT TISSUES: Right Foot: Normal. Left Foot: Abnormal soft tissue density and prominence an abnormally prominent nail and likely increased lucency around the nail. Findings concerning for cellulitis at this 2nd distal phalanx OTHER FINDINGS: Bilateral inferior calcaneal spur . Bilateral Atherosclerotic vascular calcifications present. Bilateral lateral flexion deformities of the toes. IMPRESSION: Findings concerning for osteomyelitis of the most distal tip/tuft 2nd distal phalanx with overlying soft tissue changes/cellulitis. As above. Comments: Study marked for PA review .
[2018-09-27] MEDS ORDERED: (Novolog) Insulin Aspart, Recombinant 100 u/ml 10 ml vial SC SCH (16:30)
--- NOTE | 2018-09-27 16:55 | VASCLAB ---
Date of service: 09/26/2018 PROCEDURE: Lower Extremity Venous Duplex Exam. HISTORY: Left leg pain, DVT. PRIORS: None. TECHNIQUE: Bilateral common femoral, femoral, popliteal and posterior tibial, peroneal and great saphenous veins were evaluated. Flow was assessed with color Doppler, compressibility, assessment of phasic flow and augmentation response. Report prepared by RENE Back FINDINGS: RIGHT: 1. Common Femoral Vein: 1.1. Compressibility - Fully compressible: Thrombus - None : Flow - Phasic: Augmentation -Normal: Reflux - None. 2. Femoral Vein: 2.1. Compressibility - Fully compressible: Thrombus - None : Flow - Phasic: Augmentation -Normal: Reflux - None. 3. Popliteal Vein: 3.1. Compressibility - Fully compressible: Thrombus - None : Flow - Phasic: Augmentation -Normal: Reflux - None. 4. Posterior Tibial Vein: 4.1. Compressibility - Fully compressible: Thrombus - None: Flow - Phasic: Augmentation -Normal: Reflux - None. 5. Peroneal Vein: 5.1. Compressibility - Fully compressible: Thrombus - None: Flow - Phasic: Augmentation -Normal: Reflux - None. 6. Great Saphenous Vein: 6.1. Compressibility - Fully compressible: Thrombus - None: Flow - Phasic: Augmentation - Normal: Reflux - None. LEFT: 1. Common Femoral Vein: 1.1. Compressibility - Fully compressible: Thrombus - None: Flow - Phasic: Augmentation -Normal: Reflux - None. 2. Femoral Vein: 2.1. Compressibility - Fully compressible: Thrombus - None: Flow - Phasic: Augmentation -Normal: Reflux - None. 3. Popliteal Vein: 3.1. Compressibility - Fully compressible: Thrombus - None : Flow - Phasic: Augmentation -Normal: Reflux - None. 4. Posterior Tibial Vein: 4.1. Compressibility - Fully compressible: Thrombus - None: Flow - Phasic: Augmentation -Normal: Reflux - None. 5. Peroneal Vein: 5.1. Compressibility - Fully compressible: Thrombus - None: Flow - Phasic: Augmentation -Normal: Reflux - None. 6. Great Saphenous Vein: 6.1. Compressibility - Fully compressible: Thrombus - None: Flow - Phasic: Augmentation - Normal: Reflux - None. OTHER FINDINGS: Right: None significant. Left: None significant. IMPRESSION: Right: No evidence of deep or superficial vein thrombosis of the right lower extremity. Normal valve function noted of the right side. Left: No evidence of deep or superficial vein thrombosis of the left lower extremity. Normal valve function noted of the left side.
--- NOTE | 2018-09-27 18:15 | CP.PCM.PN ---
Subjective - Date & Time of Evaluation Date of Evaluation: 09/27/18 Time of Evaluation: 18:13 - Subjective Subjective: Patient has no new complaints. Objective - Vital Signs/Intake and Output Vital Signs (last 24 hours): Temp Pulse Resp BP Pulse Ox 97.5 F L 75 20 147/82 98 09/27/18 16:42 09/27/18 16:42 09/27/18 16:42 09/27/18 16:42 09/27/18 16:42 Intake and Output: 09/27/18 09/27/18 06:59 18:59 Intake Total 700 600 Balance 700 600 - Medications Medications: Current Medications Acetaminophen/Codeine Phosphate (Tylenol/Codeine 300 Mg/30 Mg) 1 ea PO TID PRN PRN Reason: Pain, moderate (4-7) Last Admin: 09/26/18 15:10 Dose: 1 ea Albuterol (Ventolin Hfa 90 Mcg/Actuation (8 G)) 2 puff IH RQ6 PRN PRN Reason: Shortness of Breath Amlodipine Besylate (Norvasc) 2.5 mg PO DAILY [facility] Last Admin: 09/27/18 10:07 Dose: 2.5 mg Clopidogrel Bisulfate (Plavix) 75 mg PO DAILY [facility] Last Admin: 09/27/18 10:06 Dose: 75 mg Enoxaparin Sodium (Lovenox) 40 mg SC DAILY [facility] Last Admin: 09/27/18 10:10 Dose: 40 mg Gabapentin (Neurontin) 300 mg PO TID [facility] Last Admin: 09/27/18 17:37 Dose: 300 mg Hydrochlorothiazide (Microzide) 12.5 mg PO DAILY [facility] Last Admin: 09/27/18 10:07 Dose: 12.5 mg Vancomycin/Sodium Chloride (Vancomycin 1 Gm/Ns 200 Ml) 1 gm in 200 mls @ 133 mls/hr IVPB Q12H [facility]; Protocol Stop: 10/01/18 21:01 Last Admin: 09/27/18 08:49 Dose: 133 mls/hr Aztreonam 1 gm/ Sodium (Chloride) 100 mls @ 100 mls/hr IVPB Q8H [facility]; Protocol Last Admin: 09/27/18 11:59 Dose: 100 mls/hr Insulin Aspart (Novolog) 0 unit SC ACHS [facility] Last Admin: 09/27/18 17:38 Dose: Not Given Insulin Aspart (Novolog) 8 unit SC TIDAC [facility] Last Admin: 09/27/18 17:39 Dose: 8 u Insulin Detemir (Levemir) 20 unit SC HS [facility] Last Admin: 09/26/18 21:28 Dose: 20 units Losartan Potassium (Cozaar) 50 mg PO DAILY [facility] Last Admin: 09/27/18 10:06 Dose: 50 mg Metoprolol Succinate (Toprol Xl) 25 mg PO DAILY [facility] Last Admin: 09/27/18 10:07 Dose: 25 mg Rosuvastatin Calcium (Crestor) 40 mg PO DAILY [facility] Last Admin: 09/27/18 10:52 Dose: Not Given Rosuvastatin Calcium (Crestor) 40 mg PO [facility] - Labs Labs: 09/27/18 08:05 09/27/18 08:05 PT 12.4 SECONDS (9.7-12.2) H 09/25/18 18:07 INR 1.1 09/25/18 18:07 APTT 32 SECONDS (21-34) 09/25/18 18:07 - Constitutional Appears: Well, Non-toxic - Head Exam Head Exam: ATRAUMATIC, NORMAL INSPECTION, NORMOCEPHALIC - Neck Exam Neck Exam: Full ROM, Normal Inspection - Respiratory Exam Respiratory Exam: Clear to Ausculation Bilateral, NORMAL BREATHING PATTERN - Cardiovascular Exam Cardiovascular Exam: REGULAR RHYTHM, +S1, +S2 - GI/Abdominal Exam GI & Abdominal Exam: Soft, Normal Bowel Sounds - Extremities Exam Extremities Exam: Full ROM, Normal Capillary Refill, Normal Inspection - Neurological Exam Neurological Exam: Alert, Awake, CN II-XII Intact, Normal Gait, Oriented x3 - Psychiatric Exam Psychiatric exam: Normal Affect, Normal Mood Assessment and Plan (1) Cellulitis Assessment & Plan: Continue same treatment. Status: Acute (2) Diabetes mellitus Assessment & Plan: Continue same treatment. Status: Acute (3) Hypertension Assessment & Plan: Continue same treatment. Status: Acute
--- NOTE | 2018-09-27 18:56 | CP.PCM.PN ---
Subjective - Date & Time of Evaluation Date of Evaluation: 09/27/18 Time of Evaluation: 06:00 - Subjective Subjective: + bony changes left 2nd toe likey OM IV rx in progress bone scan ordered Objective - Vital Signs/Intake and Output Vital Signs (last 24 hours): Temp Pulse Resp BP Pulse Ox 97.5 F L 75 20 147/82 98 09/27/18 16:42 09/27/18 16:42 09/27/18 16:42 09/27/18 16:42 09/27/18 16:42 Intake and Output: 09/27/18 09/27/18 06:59 18:59 Intake Total 700 600 Balance 700 600 - Medications Medications: Current Medications Acetaminophen/Codeine Phosphate (Tylenol/Codeine 300 Mg/30 Mg) 1 ea PO TID PRN PRN Reason: Pain, moderate (4-7) Last Admin: 09/26/18 15:10 Dose: 1 ea Albuterol (Ventolin Hfa 90 Mcg/Actuation (8 G)) 2 puff IH RQ6 PRN PRN Reason: Shortness of Breath Amlodipine Besylate (Norvasc) 2.5 mg PO DAILY [facility] Last Admin: 09/27/18 10:07 Dose: 2.5 mg Clopidogrel Bisulfate (Plavix) 75 mg PO DAILY [facility] Last Admin: 09/27/18 10:06 Dose: 75 mg Enoxaparin Sodium (Lovenox) 40 mg SC DAILY [facility] Last Admin: 09/27/18 10:10 Dose: 40 mg Gabapentin (Neurontin) 300 mg PO TID [facility] Last Admin: 09/27/18 17:37 Dose: 300 mg Hydrochlorothiazide (Microzide) 12.5 mg PO DAILY [facility] Last Admin: 09/27/18 10:07 Dose: 12.5 mg Vancomycin/Sodium Chloride (Vancomycin 1 Gm/Ns 200 Ml) 1 gm in 200 mls @ 133 mls/hr IVPB Q12H [facility]; Protocol Stop: 10/01/18 21:01 Last Admin: 09/27/18 08:49 Dose: 133 mls/hr Aztreonam 1 gm/ Sodium (Chloride) 100 mls @ 100 mls/hr IVPB Q8H [facility]; Protocol Last Admin: 09/27/18 11:59 Dose: 100 mls/hr Insulin Aspart (Novolog) 0 unit SC ACHS [facility] Last Admin: 09/27/18 17:38 Dose: Not Given Insulin Aspart (Novolog) 8 unit SC TIDAC [facility] Last Admin: 09/27/18 17:39 Dose: 8 u Insulin Detemir (Levemir) 20 unit SC HS [facility] Last Admin: 09/26/18 21:28 Dose: 20 units Losartan Potassium (Cozaar) 50 mg PO DAILY [facility] Last Admin: 09/27/18 10:06 Dose: 50 mg Metoprolol Succinate (Toprol Xl) 25 mg PO DAILY [facility] Last Admin: 09/27/18 10:07 Dose: 25 mg Rosuvastatin Calcium (Crestor) 40 mg PO DAILY [facility] Last Admin: 09/27/18 10:52 Dose: Not Given Rosuvastatin Calcium (Crestor) 40 mg PO [facility] - Labs Labs: 09/27/18 08:05 09/27/18 08:05 PT 12.4 SECONDS (9.7-12.2) H 09/25/18 18:07 INR 1.1 09/25/18 18:07 APTT 32 SECONDS (21-34) 09/25/18 18:07 - Constitutional Appears: Non-toxic, Chronically Ill - Head Exam Head Exam: NORMOCEPHALIC - Eye Exam Eye Exam: PERRL - ENT Exam ENT Exam: Normal External Ear Exam - Neck Exam Neck Exam: absent: Lymphadenopathy - Respiratory Exam Respiratory Exam: Decreased Breath Sounds - Cardiovascular Exam Cardiovascular Exam: REGULAR RHYTHM - GI/Abdominal Exam GI & Abdominal Exam: Distended, Soft - Rectal Exam Rectal Exam: Deferred Assessment and Plan (1) Cellulitis Status: Acute (2) Diabetes mellitus Status: Acute - Assessment and Plan (Free Text) Assessment: check bone scan may have om
--- NOTE | 2018-09-27 19:23 | CP.PCM.CON ---
History of Present Illness - History of Present Illness History of Present Illness: Podiatry consult note for Dr. Sullivan, 48 year old female with a history of coronary artery disease, OA and diabetes seen and evaluated for painful and swollen left 2nd digit. Patient reports she fell 10x days ago. patient states she reports to the ED at that time, however was told she had negative xrays. Patient reports she has been taking 400 mg of Motrin every 4 hours with no improvement. Patient is unable to ambulate due to pain. Denies fever, chills, tingling, numbness, and any other associated symptoms. PMHx: Diabetes, OA, CAD, TKR PSHx: Cholecystectomy Allergies: penicllin, Soacial Hx: denies drug use, ETOH use or tobacco use Review of Systems - Review of Systems All systems: reviewed and no additional remarkable complaints except Review of Systems: As per HPI Past Patient History - Past Social History Smoking Status: Never Smoked - CARDIAC Hx Hypercholesterolemia: Yes Hx Hypertension: Yes - PULMONARY Hx Asthma: Yes - ENDOCRINE/METABOLIC Hx Diabetes Mellitus Type 1: Yes - MUSCULOSKELETAL/RHEUMATOLOGICAL Hx Arthritis: Yes - PSYCHIATRIC Hx Substance Use: No - SURGICAL HISTORY Hx Cholecystectomy: Yes - ANESTHESIA Hx Anesthesia: Yes Hx Anesthesia Reactions: No Meds Allergies/Adverse Reactions: Allergies Allergy/AdvReac Type Severity Reaction Status Date / Time Penicillins Allergy Intermediate RASH Verified 09/18/18 17:03 - Medications Medications: Current Medications Acetaminophen/Codeine Phosphate (Tylenol/Codeine 300 Mg/30 Mg) 1 ea PO TID PRN PRN Reason: Pain, moderate (4-7) Last Admin: 09/26/18 15:10 Dose: 1 ea Albuterol (Ventolin Hfa 90 Mcg/Actuation (8 G)) 2 puff IH RQ6 PRN PRN Reason: Shortness of Breath Amlodipine Besylate (Norvasc) 2.5 mg PO DAILY [facility] Last Admin: 09/27/18 10:07 Dose: 2.5 mg Clopidogrel Bisulfate (Plavix) 75 mg PO DAILY [facility] Last Admin: 09/27/18 10:06 Dose: 75 mg Enoxaparin Sodium (Lovenox) 40 mg SC DAILY [facility] Last Admin: 09/27/18 10:10 Dose: 40 mg Gabapentin (Neurontin) 300 mg PO TID [facility] Last Admin: 09/27/18 17:37 Dose: 300 mg Hydrochlorothiazide (Microzide) 12.5 mg PO DAILY [facility] Last Admin: 09/27/18 10:07 Dose: 12.5 mg Vancomycin/Sodium Chloride (Vancomycin 1 Gm/Ns 200 Ml) 1 gm in 200 mls @ 133 mls/hr IVPB Q12H [facility]; Protocol Stop: 10/01/18 21:01 Last Admin: 09/27/18 08:49 Dose: 133 mls/hr Aztreonam 1 gm/ Sodium (Chloride) 100 mls @ 100 mls/hr IVPB Q8H [facility]; Protocol Last Admin: 09/27/18 11:59 Dose: 100 mls/hr Insulin Aspart (Novolog) 0 unit SC ACHS [facility] Last Admin: 09/27/18 17:38 Dose: Not Given Insulin Aspart (Novolog) 8 unit SC TIDAC [facility] Last Admin: 09/27/18 17:39 Dose: 8 u Insulin Detemir (Levemir) 20 unit SC HS [facility] Last Admin: 09/26/18 21:28 Dose: 20 units Losartan Potassium (Cozaar) 50 mg PO DAILY [facility] Last Admin: 09/27/18 10:06 Dose: 50 mg Metoprolol Succinate (Toprol Xl) 25 mg PO DAILY [facility] Last Admin: 09/27/18 10:07 Dose: 25 mg Rosuvastatin Calcium (Crestor) 40 mg PO DAILY [facility] Last Admin: 09/27/18 10:52 Dose: Not Given Rosuvastatin Calcium (Crestor) 40 mg PO [facility] Physical Exam - Constitutional Appears: Well, Non-toxic, No Acute Distress - Head Exam Head Exam: ATRAUMATIC, NORMOCEPHALIC - Extremities Exam Additional comments: Bilateral Lower Extremity Exam VASC: DP and PT faintly palpable at 1/4 bilaterally likely secondary to +2 non- pitting edema, CFT less than 3 seconds X 10, TG warm to cool on the right and warm to warm on the left NEURO: grossly intact DERM: pre-ulcerative lesion seen at the tip of the left 2nd digit, increased erythema, edema and warmth noted to the entire left 2nd digit, no active drainage, no malodor, no probe to bone, no other open lesions noted ORTHO: minimal pain on palpation to the left 2nd digit and no pain with 1nd MTPJ range of motion, MSK 5/5 otherwise - Neurological Exam Neurological exam: Alert, Oriented x3 - Psychiatric Exam Psychiatric exam: Normal Affect, Normal Mood Results - Vital Signs Recent Vital Signs: Last Vital Signs Temp 97.5 F L 09/27/18 16:42 Pulse 75 09/27/18 16:42 Resp 20 09/27/18 16:42 BP 147/82 09/27/18 16:42 Pulse Ox 98 09/27/18 16:42 - Labs Result Diagrams: 09/27/18 08:05 09/27/18 08:05 Labs: Laboratory Results - last 24 hr 09/26/18 09/27/18 09/27/18 21:08 06:49 07:09 WBC RBC Hgb Hct MCV MCH MCHC RDW Plt Count MPV Neut % (Auto) Lymph % (Auto) [place] % (Auto) Eos % (Auto) Baso % (Auto) Neut # (Auto) Lymph # (Auto) [place] # (Auto) Eos # (Auto) Baso # (Auto) ESR Sodium Potassium Chloride Carbon Dioxide Anion Gap BUN Creatinine Est GFR ( Amer) Est GFR (Non-Af Amer) POC Glucose (mg/dL) 135 H 92 Random Glucose Hemoglobin A1c Calcium Total Bilirubin AST ALT Alkaline Phosphatase C-React Prot High Sens Total Protein Albumin Globulin Albumin/Globulin Ratio Urine HCG, Qual Negative 09/27/18 09/27/18 09/27/18 08:05 08:05 08:05 WBC 8.0 RBC 4.06 Hgb 10.2 L Hct 31.5 L MCV 77.7 L MCH 25.2 L MCHC 32.4 L RDW 13.7 Plt Count 251 MPV 10.1 Neut % (Auto) 52.5 Lymph % (Auto) 32.0 [place] % (Auto) 8.7 Eos % (Auto) 6.0 H Baso % (Auto) 0.8 Neut # (Auto) 4.2 Lymph # (Auto) 2.6 [place] # (Auto) 0.7 Eos # (Auto) 0.5 Baso # (Auto) 0.1 ESR 116 H Sodium 137 Potassium 4.3 Chloride 104 Carbon Dioxide 29 Anion Gap 9 L BUN 21 H Creatinine 1.0 Est GFR ( Amer) > 60 Est GFR (Non-Af Amer) 59 POC Glucose (mg/dL) Random Glucose 100 Hemoglobin A1c 10.9 H Calcium 8.4 L Total Bilirubin 0.9 AST 19 ALT 17 Alkaline Phosphatase 101 C-React Prot High Sens Total Protein 6.8 Albumin 3.2 L Globulin 3.6 Albumin/Globulin Ratio 0.9 L Urine HCG, Qual 09/27/18 09/27/18 09/27/18 08:05 11:29 16:15 WBC RBC Hgb Hct MCV MCH MCHC RDW Plt Count MPV Neut % (Auto) Lymph % (Auto) [place] % (Auto) Eos % (Auto) Baso % (Auto) Neut # (Auto) Lymph # (Auto) [place] # (Auto) Eos # (Auto) Baso # (Auto) ESR Sodium Potassium Chloride Carbon Dioxide Anion Gap BUN Creatinine Est GFR ( Amer) Est GFR (Non-Af Amer) POC Glucose (mg/dL) 297 H 223 H Random Glucose Hemoglobin A1c Calcium Total Bilirubin AST ALT Alkaline Phosphatase C-React Prot High Sens > 15.00 H Total Protein Albumin Globulin Albumin/Globulin Ratio Urine HCG, Qual Assessment & Plan - Assessment and Plan (Free Text) Assessment: 48 y/o female seen and evaluated for likely cellulitis to the left 2nd digit with a pre-ulcerative lesion Plan: Patient seen and evaluated at bedside for Dr. Sullivan Plan discussed with attending Chart, labs and vitals were reviewed- afebrile, and absent leukocytosis at this time ESR- 116, and CRP >15.0 (09/27/18) Foot X-ray: finding concerning for acute OM of the distal tuft of the left 2nd digit, with cellulitic changes Duplex LE: no evidence of DVT noted Continue Abx as per ID recommendation Podiatry will continue to follow patient while in house - Date & Time Date: 09/27/18 Time: 19:31
[2018-09-27] MEDS: Insulin Detemir 100 units/ml Vial (Levemir) SC SCH (21:19)
--- NOTE | 2018-09-28 01:25 | PN ---
DATE: 09/28/2018 ENDOCRINOLOGY FOLLOWUP NOTE LOCATION: Room 369. This is a 48-year-old female with recent uncontrolled type 2 insulin-requiring diabetes with ongoing IV antibiotic management for lower extremity cellulitis and also a left toe infection. Her glycemic levels are fluctuating with glucose values ranging from 223 to 297 mg/dL. Her chemistries showed a BUN of 21, sodium 137, potassium 4.3, chloride 104, CO2 of 29, glucose 100, and creatinine 1. So at this time, we will modify once again her basal and bolus insulin regimen and increase the NovoLog to 10 units subcu t.i.d. before meals to start today. We will continue her basal insulin given as Levemir at 20 units subcu at bedtime daily as given. We will obtain serial chemistries and supplement accordingly as needed. We will follow and advise accordingly. Christie Traore MD
[2018-09-28] MEDS: Aztreonam 1 GM in Sodium Chloride 0.9% 100 ML IVPB SCH ×3 (03:57→20:29)
[2018-09-28] MEDS: (Novolog) Insulin Aspart, Recombinant 100 u/ml 10 ml vial SC SCH ×7 (07:53→21:46)
--- NOTE | 2018-09-28 08:24 | CP.PCM.PN ---
Subjective - Date & Time of Evaluation Date of Evaluation: 09/28/18 Time of Evaluation: 08:22 - Subjective Subjective: Podiatry progress note for Dr. Sullivan, Patient seen and evaluated at bedside with Dr. Sullivan, Patient resting comfortably, denies any pain or other pedal complaints. Patient denies any acute overnight events. Objective - Vital Signs/Intake and Output Vital Signs (last 24 hours): Temp Pulse Resp BP Pulse Ox 98.2 F 72 20 110/69 96 09/28/18 08:00 09/28/18 08:00 09/28/18 08:00 09/28/18 08:00 09/28/18 08:00 Intake and Output: 09/28/18 09/28/18 06:59 18:59 Intake Total 950 Balance 950 - Medications Medications: Current Medications Acetaminophen/Codeine Phosphate (Tylenol/Codeine 300 Mg/30 Mg) 1 ea PO TID PRN PRN Reason: Pain, moderate (4-7) Last Admin: 09/26/18 15:10 Dose: 1 ea Albuterol (Ventolin Hfa 90 Mcg/Actuation (8 G)) 2 puff IH RQ6 PRN PRN Reason: Shortness of Breath Amlodipine Besylate (Norvasc) 2.5 mg PO DAILY [facility] Last Admin: 09/27/18 10:07 Dose: 2.5 mg Clopidogrel Bisulfate (Plavix) 75 mg PO DAILY [facility] Last Admin: 09/27/18 10:06 Dose: 75 mg Enoxaparin Sodium (Lovenox) 40 mg SC DAILY [facility] Last Admin: 09/27/18 10:10 Dose: 40 mg Gabapentin (Neurontin) 300 mg PO TID [facility] Last Admin: 09/27/18 17:37 Dose: 300 mg Hydrochlorothiazide (Microzide) 12.5 mg PO DAILY [facility] Last Admin: 09/27/18 10:07 Dose: 12.5 mg Vancomycin/Sodium Chloride (Vancomycin 1 Gm/Ns 200 Ml) 1 gm in 200 mls @ 133 mls/hr IVPB Q12H [facility]; Protocol Stop: 10/01/18 21:01 Last Admin: 09/27/18 21:25 Dose: 133 mls/hr Aztreonam 1 gm/ Sodium (Chloride) 100 mls @ 100 mls/hr IVPB Q8H [facility]; Protocol Last Admin: 09/28/18 03:57 Dose: 100 mls/hr Insulin Aspart (Novolog) 0 unit SC ACHS [facility] Last Admin: 09/28/18 07:53 Dose: Not Given Insulin Aspart (Novolog) 10 unit SC TIDAC [facility] Last Admin: 09/28/18 07:53 Dose: Not Given Insulin Detemir (Levemir) 20 unit SC HS [facility] Last Admin: 09/27/18 21:19 Dose: 20 units Losartan Potassium (Cozaar) 50 mg PO DAILY [facility] Last Admin: 09/27/18 10:06 Dose: 50 mg Metoprolol Succinate (Toprol Xl) 25 mg PO DAILY [facility] Last Admin: 09/27/18 10:07 Dose: 25 mg Rosuvastatin Calcium (Crestor) 40 mg PO DAILY [facility] Last Admin: 09/27/18 10:52 Dose: Not Given Rosuvastatin Calcium (Crestor) 40 mg PO HS [facility] Last Admin: 09/27/18 21:18 Dose: 40 mg - Labs Labs: 09/27/18 08:05 09/27/18 08:05 PT 12.4 SECONDS (9.7-12.2) H 09/25/18 18:07 INR 1.1 09/25/18 18:07 APTT 32 SECONDS (21-34) 09/25/18 18:07 - Constitutional Appears: Well, Non-toxic, No Acute Distress - Head Exam Head Exam: ATRAUMATIC, NORMOCEPHALIC - Extremities Exam Additional comments: Bilateral Lower Extremity Exam VASC: DP and PT faintly palpable at 1/4 bilaterally likely secondary to +2 non-pitting edema, CFT less than 3 seconds X 10, TG warm to cool on the right and warm to warm on the left NEURO: grossly intact DERM: pre-ulcerative lesion seen at the tip of the left 2nd digit, increased erythema, edema and warmth noted to the entire left 2nd digit, no active drainage, no malodor, no probe to bone, no other open lesions noted ORTHO: minimal pain on palpation to the left 2nd digit and no pain with 1nd MTPJ range of motion, MSK 5/5 otherwise - Neurological Exam Neurological Exam: Alert, Awake, Oriented x3 - Psychiatric Exam Psychiatric exam: Normal Affect, Normal Mood Assessment and Plan - Assessment and Plan (Free Text) Assessment: 48 y/o female seen and evaluated for likely cellulitis to the left 2nd digit with a pre-ulcerative lesion Plan: Patient seen and evaluated at bedside for Dr. Sullivan Plan discussed with attending Chart, labs and vitals were reviewed- afebrile, and absent leukocytosis at this time ESR- 116, and CRP >15.0 (09/27/18) Foot X-ray: finding concerning for acute OM of the distal tuft of the left 2nd digit, with cellulitic changes Duplex LE: no evidence of DVT noted Continue Abx as per ID recommendation Bone Scan cannot be performed at this time per tech, MRI is requested for further evaluation Wound dressed with betadine, DSD Podiatry will continue to follow patient while in house
[2018-09-28] MEDS: Vancomycin 1 gm/NS 200 ml 1 GM/200 ML BAG IVPB SCH ×3 (09:04→20:34)
[2018-09-28] MEDS: Metoprolol Succinate 25 mg XL Tab PO SCH (09:05)
[2018-09-28] MEDS: Enoxaparin 40 mg Syringe SC SCH (09:05)
--- NOTE | 2018-09-28 18:53 | CP.PCM.PN ---
Subjective - Date & Time of Evaluation Date of Evaluation: 09/28/18 Time of Evaluation: 18:51 - Subjective Subjective: Afebrile, in no apparent distress. Objective - Vital Signs/Intake and Output Vital Signs (last 24 hours): Temp Pulse Resp BP Pulse Ox 98.0 F 74 20 142/87 97 09/28/18 16:29 09/28/18 16:29 09/28/18 16:29 09/28/18 16:29 09/28/18 16:29 Intake and Output: 09/28/18 09/28/18 06:59 18:59 Intake Total 950 540 Balance 950 540 - Medications Medications: Current Medications Acetaminophen/Codeine Phosphate (Tylenol/Codeine 300 Mg/30 Mg) 1 ea PO TID PRN PRN Reason: Pain, moderate (4-7) Last Admin: 09/26/18 15:10 Dose: 1 ea Albuterol (Ventolin Hfa 90 Mcg/Actuation (8 G)) 2 puff IH RQ6 PRN PRN Reason: Shortness of Breath Amlodipine Besylate (Norvasc) 2.5 mg PO DAILY [facility] Last Admin: 09/28/18 09:05 Dose: 2.5 mg Clopidogrel Bisulfate (Plavix) 75 mg PO DAILY [facility] Last Admin: 09/28/18 09:05 Dose: 75 mg Enoxaparin Sodium (Lovenox) 40 mg SC DAILY [facility] Last Admin: 09/28/18 09:05 Dose: 40 mg Gabapentin (Neurontin) 300 mg PO TID [facility] Last Admin: 09/28/18 17:57 Dose: 300 mg Hydrochlorothiazide (Microzide) 12.5 mg PO DAILY [facility] Last Admin: 09/28/18 09:05 Dose: 12.5 mg Vancomycin/Sodium Chloride (Vancomycin 1 Gm/Ns 200 Ml) 1 gm in 200 mls @ 133 mls/hr IVPB Q12H [facility]; Protocol Stop: 10/01/18 21:01 Last Admin: 09/28/18 09:30 Dose: 133 mls/hr Aztreonam 1 gm/ Sodium (Chloride) 100 mls @ 100 mls/hr IVPB Q8H [facility]; Protocol Last Admin: 09/28/18 12:03 Dose: 100 mls/hr Insulin Aspart (Novolog) 0 unit SC ACHS [facility] Last Admin: 09/28/18 17:59 Dose: Not Given Insulin Aspart (Novolog) 10 unit SC TIDAC [facility] Last Admin: 09/28/18 17:58 Dose: 10 unit Insulin Detemir (Levemir) 20 unit SC [facility] Last Admin: 09/27/18 21:19 Dose: 20 units Losartan Potassium (Cozaar) 50 mg PO DAILY [facility] Last Admin: 09/28/18 09:05 Dose: 50 mg Metoprolol Succinate (Toprol Xl) 25 mg PO DAILY [facility] Last Admin: 09/28/18 09:05 Dose: 25 mg Rosuvastatin Calcium (Crestor) 40 mg PO [facility] Last Admin: 09/27/18 21:18 Dose: 40 mg - Labs Labs: 09/27/18 08:05 09/27/18 08:05 PT 12.4 SECONDS (9.7-12.2) H 09/25/18 18:07 INR 1.1 09/25/18 18:07 APTT 32 SECONDS (21-34) 09/25/18 18:07 - Constitutional Appears: Well, Non-toxic - Head Exam Head Exam: ATRAUMATIC, NORMAL INSPECTION, NORMOCEPHALIC - Neck Exam Neck Exam: Full ROM, Normal Inspection - Respiratory Exam Respiratory Exam: Clear to Ausculation Bilateral, NORMAL BREATHING PATTERN - Cardiovascular Exam Cardiovascular Exam: REGULAR RHYTHM, +S1, +S2 - GI/Abdominal Exam GI & Abdominal Exam: Soft, Normal Bowel Sounds - Extremities Exam Extremities Exam: Full ROM - Back Exam Back Exam: NORMAL INSPECTION - Neurological Exam Neurological Exam: Alert, CN II-XII Intact, Normal Gait, Oriented x3 Assessment and Plan (1) Diabetic foot infection Assessment & Plan: Continue Aztreonam + Vancomycin. ID on board. Podiatry on board. Status: Acute (2) Diabetes mellitus Assessment & Plan: Continue same treatment. Endocrine on board. Status: Acute (3) Cellulitis Assessment & Plan: As above. Status: Acute (4) Hypertension Assessment & Plan: Continue same treatment. Status: Acute
--- NOTE | 2018-09-28 19:50 | CP.PCM.PN ---
Subjective - Date & Time of Evaluation Date of Evaluation: 09/28/18 Time of Evaluation: 09:00 - Subjective Subjective: await nuclear scan IV rx renewed Objective - Vital Signs/Intake and Output Vital Signs (last 24 hours): Temp Pulse Resp BP Pulse Ox 98.0 F 74 20 142/87 97 09/28/18 16:29 09/28/18 16:29 09/28/18 16:29 09/28/18 16:29 09/28/18 16:29 Intake and Output: 09/28/18 09/29/18 18:59 06:59 Intake Total 540 Balance 540 - Medications Medications: Current Medications Acetaminophen/Codeine Phosphate (Tylenol/Codeine 300 Mg/30 Mg) 1 ea PO TID PRN PRN Reason: Pain, moderate (4-7) Last Admin: 09/26/18 15:10 Dose: 1 ea Albuterol (Ventolin Hfa 90 Mcg/Actuation (8 G)) 2 puff IH RQ6 PRN PRN Reason: Shortness of Breath Amlodipine Besylate (Norvasc) 2.5 mg PO DAILY [facility] Last Admin: 09/28/18 09:05 Dose: 2.5 mg Clopidogrel Bisulfate (Plavix) 75 mg PO DAILY [facility] Last Admin: 09/28/18 09:05 Dose: 75 mg Enoxaparin Sodium (Lovenox) 40 mg SC DAILY [facility] Last Admin: 09/28/18 09:05 Dose: 40 mg Gabapentin (Neurontin) 300 mg PO TID [facility] Last Admin: 09/28/18 17:57 Dose: 300 mg Hydrochlorothiazide (Microzide) 12.5 mg PO DAILY [facility] Last Admin: 09/28/18 09:05 Dose: 12.5 mg Vancomycin/Sodium Chloride (Vancomycin 1 Gm/Ns 200 Ml) 1 gm in 200 mls @ 133 mls/hr IVPB Q12H [facility]; Protocol Stop: 10/01/18 21:01 Last Admin: 09/28/18 09:30 Dose: 133 mls/hr Aztreonam 1 gm/ Sodium (Chloride) 100 mls @ 100 mls/hr IVPB Q8H [facility]; Protocol Last Admin: 09/28/18 12:03 Dose: 100 mls/hr Insulin Aspart (Novolog) 0 unit SC ACHS [facility] Last Admin: 09/28/18 17:59 Dose: Not Given Insulin Aspart (Novolog) 10 unit SC TIDAC [facility] Last Admin: 09/28/18 17:58 Dose: 10 unit Insulin Detemir (Levemir) 20 unit SC HS [facility] Last Admin: 09/27/18 21:19 Dose: 20 units Losartan Potassium (Cozaar) 50 mg PO DAILY [facility] Last Admin: 09/28/18 09:05 Dose: 50 mg Metoprolol Succinate (Toprol Xl) 25 mg PO DAILY [facility] Last Admin: 09/28/18 09:05 Dose: 25 mg Rosuvastatin Calcium (Crestor) 40 mg PO [facility] Last Admin: 09/27/18 21:18 Dose: 40 mg - Labs Labs: 09/27/18 08:05 09/27/18 08:05 PT 12.4 SECONDS (9.7-12.2) H 09/25/18 18:07 INR 1.1 09/25/18 18:07 APTT 32 SECONDS (21-34) 09/25/18 18:07 Assessment and Plan (1) Cellulitis Status: Acute (2) Diabetes mellitus Status: Acute
[2018-09-28] MEDS: Insulin Detemir 100 units/ml Vial (Levemir) SC SCH (21:41)
[2018-09-29] MEDS: Aztreonam 1 GM in Sodium Chloride 0.9% 100 ML IVPB SCH ×3 (03:06→19:40)
--- NOTE | 2018-09-29 03:08 | PN ---
DATE: 09/28/2018 ENDOCRINOLOGY FOLLOWUP NOTE LOCATION: Room 369. SUBJECTIVE: This is a 48-year-old female with recent uncontrolled type 2 insulin-requiring diabetes, now being followed closely for metabolic management. Her glycemic levels are fluctuating, but improved, and the glucose values have ranged from 219-233 and 239 mg per dL. Her latest chemistry showed a BUN of 21, sodium 137, potassium 4.3, chloride 104, CO2 of 29, glucose 100, and creatinine 1. She has also ongoing IV antibiotic management for lower extremity cellulitis and osteomyelitis as noted. So at this time, we will modify once again her basal and bolus insulin regimen and increase the NovoLog to 12 units subcutaneously t.i.d. before meals to start tomorrow morning at breakfast time as ordered. We will also increase the basal insulin to Levemir given as 22 units subcutaneously at bedtime to start tonight. We will continue the low dose correction scale using NovoLog insulin as given. We will follow and advise accordingly. Christie Traore MD
[2018-09-29] MEDS: (Novolog) Insulin Aspart, Recombinant 100 u/ml 10 ml vial SC SCH ×7 (07:59→21:56)
[2018-09-29] MEDS: Vancomycin 1 gm/NS 200 ml 1 GM/200 ML BAG IVPB SCH ×3 (09:00→21:07)
[2018-09-29] MEDS ORDERED: Gadodiamide 287 mg/ml 20 ml IV ONE (10:02)
[2018-09-29] MEDS: Metoprolol Succinate 25 mg XL Tab PO SCH (11:00)
[2018-09-29] MEDS: Enoxaparin 40 mg Syringe SC SCH (12:05)
--- NOTE | 2018-09-29 12:39 | CP.PCM.PN ---
Subjective - Date & Time of Evaluation Date of Evaluation: 09/29/18 Time of Evaluation: 12:36 - Subjective Subjective: Podiatry progress note for Dr. Sullivan: 48 yo female patient, seen and evaluated at bedside with Dr. Sullivan for preulcerative lesion to distal 2nd digit. Patient is resting comfortably in bed and in NAD. Denies any acute events overnight. Denies any pain to the 2nd digit. Per nursing, patient went for MRI yesterday. Denies N/V/F/SOB/CP/chills. Objective - Vital Signs/Intake and Output Vital Signs (last 24 hours): Temp Pulse Resp BP Pulse Ox 98.0 F 79 20 135/82 98 09/29/18 08:10 09/29/18 08:10 09/29/18 08:10 09/29/18 08:10 09/29/18 08:10 Intake and Output: 09/29/18 09/29/18 06:59 18:59 Intake Total 1110 Balance 1110 - Medications Medications: Current Medications Acetaminophen/Codeine Phosphate (Tylenol/Codeine 300 Mg/30 Mg) 1 ea PO TID PRN PRN Reason: Pain, moderate (4-7) Last Admin: 09/26/18 15:10 Dose: 1 ea Albuterol (Ventolin Hfa 90 Mcg/Actuation (8 G)) 2 puff IH RQ6 PRN PRN Reason: Shortness of Breath Amlodipine Besylate (Norvasc) 2.5 mg PO DAILY [facility] Last Admin: 09/29/18 11:00 Dose: 2.5 mg Clopidogrel Bisulfate (Plavix) 75 mg PO DAILY [facility] Last Admin: 09/29/18 11:00 Dose: 75 mg Enoxaparin Sodium (Lovenox) 40 mg SC DAILY [facility] Last Admin: 09/29/18 12:05 Dose: 40 mg Gabapentin (Neurontin) 300 mg PO TID [facility] Last Admin: 09/29/18 11:00 Dose: 300 mg Hydrochlorothiazide (Microzide) 12.5 mg PO DAILY [facility] Last Admin: 09/29/18 11:00 Dose: 12.5 mg Vancomycin/Sodium Chloride (Vancomycin 1 Gm/Ns 200 Ml) 1 gm in 200 mls @ 133 ml s/hr IVPB Q12H [facility]; Protocol Stop: 10/01/18 21:01 Last Admin: 09/29/18 11:30 Dose: 133 mls/hr Aztreonam 1 gm/ Sodium (Chloride) 100 mls @ 100 mls/hr IVPB Q8H [facility]; Protocol Last Admin: 09/29/18 03:06 Dose: 100 mls/hr Insulin Aspart (Novolog) 0 unit SC ACHS [facility] Last Admin: 09/29/18 07:59 Dose: Not Given Insulin Aspart (Novolog) 12 unit SC TIDAC [facility] Last Admin: 09/29/18 08:00 Dose: Not Given Insulin Detemir (Levemir) 22 unit SC HS [facility] Losartan Potassium (Cozaar) 50 mg PO DAILY [facility] Last Admin: 09/29/18 11:00 Dose: 50 mg Metoprolol Succinate (Toprol Xl) 25 mg PO DAILY [facility] Last Admin: 09/29/18 11:00 Dose: 25 mg Rosuvastatin Calcium (Crestor) 40 mg PO HS [facility] Last Admin: 09/28/18 21:47 Dose: 40 mg - Labs Labs: 09/27/18 08:05 09/27/18 08:05 PT 12.4 SECONDS (9.7-12.2) H 09/25/18 18:07 INR 1.1 09/25/18 18:07 APTT 32 SECONDS (21-34) 09/25/18 18:07 - Constitutional Appears: Well, Non-toxic, No Acute Distress - Head Exam Head Exam: ATRAUMATIC, NORMOCEPHALIC - Extremities Exam Additional comments: B/L lower extremity focused exam: VASC: DP and PT faintly palpable at 1/4 bilaterally likely secondary to +2 non-pitting edema, CFT less than 3 seconds X 10, TG warm to cool on the right and warm to warm on the left NEURO: gross sensation intact DERM: pre-ulcerative lesion seen at the tip of the left 2nd digit, increased erythema, edema and warmth noted to the entire left 2nd digit, no active drainage, no malodor, no probe to bone, no other open lesions noted ORTHO: no pain on palpation to the left 2nd di - Neurological Exam Neurological Exam: Alert, Awake, Oriented x3 - Psychiatric Exam Psychiatric exam: Normal Affect, Normal Mood Assessment and Plan - Assessment and Plan (Free Text) Assessment: 48 yo female patient, seen and evaluated at bedside with Dr. Sullivan for preulcerative lesion to distal 2nd digit. Plan: Patient seen and evaluated at bedside for Dr. Sullivan VSS ESR- 116, and CRP >15.0 (09/27/18) Foot X-ray: finding concerning for acute OM of the distal tuft of the left 2nd digit, with cellulitic changes Duplex LE: no evidence of DVT noted Continue Abx as per ID recommendation Lower extremity MRI; taken results pending Wound dressed with betadine, DSD Podiatry will continue to follow patient while in house
--- NOTE | 2018-09-29 15:39 | PN ---
DATE: 09/29/2018 ENDOCRINOLOGY FOLLOWUP NOTE LOCATION: In room 369. SUBJECTIVE: This is a 48-year-old female with recent uncontrolled type 2 insulin-requiring diabetes, now being followed closely for metabolic management. She has ongoing IV antibiotic management for lower extremity cellulitis and left second toe infection at this time. Her glycemic levels are fluctuating, but improved and the glucose values overnight have ranged from 219 to 233 mg/dL. LABORATORY DATA: Her latest chemistry showed a BUN of 21, sodium 137, potassium 4.3, chloride 104, CO2 of 29, glucose 100, and creatinine 1. Her hemoglobin A1c is 10.9%. IMPRESSION AND PLAN: So at this time, we will continue to modify basal and bolus insulin regimen as given and we will increase the NovoLog to 12 units t.i.d. before meals to start this morning as ordered. We will continue also the basal insulin given as Levemir at 22 units subcutaneously at bedtime daily as ordered. We will obtain serial chemistries and supplement accordingly as needed. We will follow and advise accordingly. Christie Traore MD
--- NOTE | 2018-09-29 16:49 | CP.PCM.PN ---
Subjective - Date & Time of Evaluation Date of Evaluation: 09/29/18 Time of Evaluation: 07:00 - Subjective Subjective: MRI and bone scan pending Vanco levels optimal cont IV Vanco/Azactam Objective - Vital Signs/Intake and Output Vital Signs (last 24 hours): Temp Pulse Resp BP Pulse Ox 97.4 F L 71 20 132/84 99 09/29/18 15:15 09/29/18 15:15 09/29/18 15:15 09/29/18 15:15 09/29/18 15:15 Intake and Output: 09/29/18 09/29/18 06:59 18:59 Intake Total 1110 700 Balance 1110 700 - Medications Medications: Current Medications Acetaminophen/Codeine Phosphate (Tylenol/Codeine 300 Mg/30 Mg) 1 ea PO TID PRN PRN Reason: Pain, moderate (4-7) Last Admin: 09/26/18 15:10 Dose: 1 ea Albuterol (Ventolin Hfa 90 Mcg/Actuation (8 G)) 2 puff IH RQ6 PRN PRN Reason: Shortness of Breath Amlodipine Besylate (Norvasc) 2.5 mg PO DAILY [facility] Last Admin: 09/29/18 11:00 Dose: 2.5 mg Clopidogrel Bisulfate (Plavix) 75 mg PO DAILY [facility] Last Admin: 09/29/18 11:00 Dose: 75 mg Enoxaparin Sodium (Lovenox) 40 mg SC DAILY [facility] Last Admin: 09/29/18 12:05 Dose: 40 mg Gabapentin (Neurontin) 300 mg PO TID [facility] Last Admin: 09/29/18 14:06 Dose: 300 mg Hydrochlorothiazide (Microzide) 12.5 mg PO DAILY [facility] Last Admin: 09/29/18 11:00 Dose: 12.5 mg Vancomycin/Sodium Chloride (Vancomycin 1 Gm/Ns 200 Ml) 1 gm in 200 mls @ 133 mls/hr IVPB Q12H [facility]; Protocol Stop: 10/01/18 21:01 Last Admin: 09/29/18 11:30 Dose: 133 mls/hr Aztreonam 1 gm/ Sodium (Chloride) 100 mls @ 100 mls/hr IVPB Q8H [facility]; Protocol Last Admin: 09/29/18 13:00 Dose: 100 mls/hr Insulin Aspart (Novolog) 0 unit SC ACHS [facility] Last Admin: 09/29/18 12:00 Dose: Not Given Insulin Aspart (Novolog) 12 unit SC TIDAC [facility] Last Admin: 09/29/18 13:00 Dose: 12 unit Insulin Detemir (Levemir) 22 unit SC HS [facility] Losartan Potassium (Cozaar) 50 mg PO DAILY [facility] Last Admin: 09/29/18 11:00 Dose: 50 mg Metoprolol Succinate (Toprol Xl) 25 mg PO DAILY [facility] Last Admin: 09/29/18 11:00 Dose: 25 mg Rosuvastatin Calcium (Crestor) 40 mg PO [facility] Last Admin: 09/28/18 21:47 Dose: 40 mg - Labs Labs: 09/27/18 08:05 09/27/18 08:05 PT 12.4 SECONDS (9.7-12.2) H 09/25/18 18:07 INR 1.1 09/25/18 18:07 APTT 32 SECONDS (21-34) 09/25/18 18:07 Assessment and Plan (1) Cellulitis Status: Acute (2) Diabetes mellitus Status: Acute
--- NOTE | 2018-09-29 18:59 | CP.PCM.PN ---
Subjective - Date & Time of Evaluation Date of Evaluation: 09/29/18 Time of Evaluation: 18:57 - Subjective Subjective: Patient has no new complaints. Objective - Vital Signs/Intake and Output Vital Signs (last 24 hours): Temp Pulse Resp BP Pulse Ox 97.4 F L 71 20 132/84 99 09/29/18 15:15 09/29/18 15:15 09/29/18 15:15 09/29/18 15:15 09/29/18 15:15 Intake and Output: 09/29/18 09/29/18 06:59 18:59 Intake Total 1110 700 Balance 1110 700 - Medications Medications: Current Medications Acetaminophen/Codeine Phosphate (Tylenol/Codeine 300 Mg/30 Mg) 1 ea PO TID PRN PRN Reason: Pain, moderate (4-7) Last Admin: 09/26/18 15:10 Dose: 1 ea Albuterol (Ventolin Hfa 90 Mcg/Actuation (8 G)) 2 puff IH RQ6 PRN PRN Reason: Shortness of Breath Amlodipine Besylate (Norvasc) 2.5 mg PO DAILY [facility] Last Admin: 09/29/18 11:00 Dose: 2.5 mg Clopidogrel Bisulfate (Plavix) 75 mg PO DAILY [facility] Last Admin: 09/29/18 11:00 Dose: 75 mg Enoxaparin Sodium (Lovenox) 40 mg SC DAILY [facility] Last Admin: 09/29/18 12:05 Dose: 40 mg Gabapentin (Neurontin) 300 mg PO TID [facility] Last Admin: 09/29/18 17:44 Dose: 300 mg Hydrochlorothiazide (Microzide) 12.5 mg PO DAILY [facility] Last Admin: 09/29/18 11:00 Dose: 12.5 mg Vancomycin/Sodium Chloride (Vancomycin 1 Gm/Ns 200 Ml) 1 gm in 200 mls @ 133 mls/hr IVPB Q12H [facility]; Protocol Stop: 10/01/18 21:01 Last Admin: 09/29/18 11:30 Dose: 133 mls/hr Aztreonam 1 gm/ Sodium (Chloride) 100 mls @ 100 mls/hr IVPB Q8H [facility]; Protocol Last Admin: 09/29/18 13:00 Dose: 100 mls/hr Insulin Aspart (Novolog) 0 unit SC ACHS [facility] Last Admin: 09/29/18 17:00 Dose: Not Given Insulin Aspart (Novolog) 12 unit SC TIDAC [facility] Last Admin: 09/29/18 17:00 Dose: 12 unit Insulin Detemir (Levemir) 22 unit SC [facility] Losartan Potassium (Cozaar) 50 mg PO DAILY [facility] Last Admin: 09/29/18 11:00 Dose: 50 mg Metoprolol Succinate (Toprol Xl) 25 mg PO DAILY [facility] Last Admin: 09/29/18 11:00 Dose: 25 mg Rosuvastatin Calcium (Crestor) 40 mg PO [facility] Last Admin: 09/28/18 21:47 Dose: 40 mg - Labs Labs: 09/27/18 08:05 09/27/18 08:05 PT 12.4 SECONDS (9.7-12.2) H 09/25/18 18:07 INR 1.1 09/25/18 18:07 APTT 32 SECONDS (21-34) 09/25/18 18:07 - Constitutional Appears: Well, Non-toxic, No Acute Distress - Head Exam Head Exam: ATRAUMATIC, NORMAL INSPECTION, NORMOCEPHALIC - Neck Exam Neck Exam: Full ROM, Normal Inspection - Respiratory Exam Respiratory Exam: Clear to Ausculation Bilateral, NORMAL BREATHING PATTERN - Cardiovascular Exam Cardiovascular Exam: REGULAR RHYTHM, +S1, +S2 - GI/Abdominal Exam GI & Abdominal Exam: Soft, Normal Bowel Sounds - Extremities Exam Extremities Exam: Full ROM, Normal Capillary Refill, Normal Inspection - Skin Skin Exam: Dry (2nd Left Toe: Erythema, tender and warmth. Preulcerative lesion. ) Assessment and Plan (1) Diabetic foot infection Assessment & Plan: BMP. CBC Diff. Continue same treatment. Status: Acute (2) Diabetes mellitus Assessment & Plan: Continue same treatment. Status: Acute (3) Cellulitis Assessment & Plan: As above. Status: Acute (4) Hypertension Assessment & Plan: Continue same treatment. Status: Acute
[2018-09-29] MEDS: Insulin Detemir 100 units/ml Vial (Levemir) SC SCH (21:55)
[2018-09-29 22:32] LABS: BASO # 0.1 K/uL (0.0-0.2); BASO % 1.2 % (0.0-2.0); EOS # 0.8 K/uL (0.0-0.7); HEMOGLOBIN 10.7 g/dL (11.0-16.0); LYMPH # 2.6 K/uL (1.0-4.3); LYMPH % 31.6 % (20.0-40.0); MEAN CELL VOLUME 76.6 fL (81.0-99.0); MEAN CORPUSCULAR HEMOGLOBIN 24.7 pg (27.0-31.0); MEAN CORPUSCULAR HGB CONC 32.2 g/dL (33.0-37.0); MEAN PLATELET VOLUME 9.6 fL (7.2-11.7); MONO # 0.7 K/uL (0.0-0.8); MONO % 8.1 % (0.0-10.0); NEUT # 4.1 K/uL (1.8-7.0); NEUT % 49.1 % (50.0-75.0); RBC 4.34 Mil/uL (3.80-5.20); RED CELL DISTRIBUTION WIDTH 13.5 % (11.5-14.5); WHITE BLOOD COUNT 8.3 K/uL (4.8-10.8)
[2018-09-30] MEDS: Aztreonam 1 GM in Sodium Chloride 0.9% 100 ML IVPB SCH ×3 (02:59→20:56)
[2018-09-30] MEDS: (Novolog) Insulin Aspart, Recombinant 100 u/ml 10 ml vial SC SCH ×7 (07:30→21:56)
[2018-09-30 08:06] LABS: BASO # 0.1 K/uL (0.0-0.2); EOS # 0.8 K/uL (0.0-0.7); EOS % 9.4 % (0.0-4.0); HEMOGLOBIN 10.6 g/dL (11.0-16.0); LYMPH # 2.8 K/uL (1.0-4.3); LYMPH % 32.1 % (20.0-40.0); MEAN CELL VOLUME 77.5 fL (81.0-99.0); MEAN CORPUSCULAR HEMOGLOBIN 25.3 pg (27.0-31.0); MEAN CORPUSCULAR HGB CONC 32.7 g/dL (33.0-37.0); MONO # 0.7 K/uL (0.0-0.8); MONO % 8.3 % (0.0-10.0); NEUT # 4.2 K/uL (1.8-7.0); NEUT % 49.2 % (50.0-75.0); NRBC % 0.1 % (0.0-2.0); RBC 4.19 Mil/uL (3.80-5.20); RED CELL DISTRIBUTION WIDTH 13.6 % (11.5-14.5); WHITE BLOOD COUNT 8.6 K/uL (4.8-10.8)
[2018-09-30 08:13] LABS: ALB/GLOB RATIO 0.9 (1.0-2.1); ALBUMIN 3.2 g/dL (3.5-5.0); ALT/SGPT 27 U/L (9-52); AST/SGOT 32 U/L (14-36); BLOOD UREA NITROGEN 19 mg/dL (7-17); CALCIUM 8.5 mg/dl (8.6-10.4); GFR NON-AFRICAN AMERICAN > 60
[2018-09-30] MEDS: Vancomycin 1 gm/NS 200 ml 1 GM/200 ML BAG IVPB SCH ×2 (09:19→20:41)
[2018-09-30] MEDS: Enoxaparin 40 mg Syringe SC SCH (09:20)
[2018-09-30] MEDS: Metoprolol Succinate 25 mg XL Tab PO SCH (09:21)
--- NOTE | 2018-09-30 09:59 | CP.PCM.PN ---
Subjective - Date & Time of Evaluation Date of Evaluation: 09/30/18 Time of Evaluation: 09:58 - Subjective Subjective: Podiatry progress note: Dr. Sullivan: 48F patient, seen and evaluated at bedside for preulcerative lesion to distal 2nd digit. Patient is AAOx3 and in NAD. She denies any acute events overnight. She reports mild pain to the 2nd digit. Denies N/V/F/SOB/CP. Objective - Vital Signs/Intake and Output Vital Signs (last 24 hours): Temp Pulse Resp BP Pulse Ox 98.4 F 77 20 100/65 97 09/29/18 23:52 09/29/18 23:52 09/29/18 23:52 09/29/18 23:52 09/29/18 23:52 Intake and Output: 09/30/18 09/30/18 06:59 18:59 Intake Total 1260 Balance 1260 - Medications Medications: Current Medications Acetaminophen/Codeine Phosphate (Tylenol/Codeine 300 Mg/30 Mg) 1 ea PO TID PRN PRN Reason: Pain, moderate (4-7) Last Admin: 09/26/18 15:10 Dose: 1 ea Albuterol (Ventolin Hfa 90 Mcg/Actuation (8 G)) 2 puff IH RQ6 PRN PRN Reason: Shortness of Breath Amlodipine Besylate (Norvasc) 2.5 mg PO DAILY [facility] Last Admin: 09/29/18 11:00 Dose: 2.5 mg Clopidogrel Bisulfate (Plavix) 75 mg PO DAILY [facility] Last Admin: 09/30/18 09:21 Dose: 75 mg Enoxaparin Sodium (Lovenox) 40 mg SC DAILY [facility] Last Admin: 09/30/18 09:20 Dose: 40 mg Gabapentin (Neurontin) 300 mg PO TID [facility] Last Admin: 09/30/18 09:21 Dose: 300 mg Hydrochlorothiazide (Microzide) 12.5 mg PO DAILY [facility] Last Admin: 09/30/18 09:21 Dose: 12.5 mg Vancomycin/Sodium Chloride (Vancomycin 1 Gm/Ns 200 Ml) 1 gm in 200 mls @ 133 mls/hr IVPB Q12H [facility]; Protocol Stop: 10/01/18 21:01 Last Admin: 09/30/18 09:19 Dose: 133 mls/hr Aztreonam 1 gm/ Sodium (Chloride) 100 mls @ 100 mls/hr IVPB Q8H [facility]; Protocol Last Admin: 09/30/18 02:59 Dose: 100 mls/hr Insulin Aspart (Novolog) 0 unit SC ACHS [facility] Last Admin: 09/30/18 07:30 Dose: Not Given Insulin Aspart (Novolog) 12 unit SC TIDAC [facility] Last Admin: 09/30/18 08:00 Dose: Not Given Insulin Detemir (Levemir) 22 unit SC HS [facility] Last Admin: 09/29/18 21:55 Dose: 22 units Losartan Potassium (Cozaar) 50 mg PO DAILY [facility] Last Admin: 09/30/18 09:21 Dose: 50 mg Metoprolol Succinate (Toprol Xl) 25 mg PO DAILY [facility] Last Admin: 09/30/18 09:21 Dose: 25 mg Rosuvastatin Calcium (Crestor) 40 mg PO [facility] Last Admin: 09/29/18 21:54 Dose: 40 mg - Labs Labs: 09/30/18 07:43 09/30/18 07:43 PT 12.4 SECONDS (9.7-12.2) H 09/25/18 18:07 INR 1.1 09/25/18 18:07 APTT 32 SECONDS (21-34) 09/25/18 18:07 - Constitutional Appears: Well, Non-toxic, No Acute Distress - Head Exam Head Exam: ATRAUMATIC, NORMOCEPHALIC - Extremities Exam Additional comments: B/L lower extremity focused exam: VASC: DP and PT faintly palpable at 1/4 bilaterally likely secondary to +2 non- pitting edema, CFT less than 3 seconds X 10, TG warm to cool on the right and warm to warm on the left NEURO: gross sensation intact DERM: pre-ulcerative lesion seen at the tip of the left 2nd digit, increased erythema, edema and warmth noted to the entire left 2nd digit, no active drainage, no malodor, no probe to bone, no other open lesions noted ORTHO: no pain on palpation to the left 2nd di - Neurological Exam Neurological Exam: Alert, Awake, Oriented x3 - Psychiatric Exam Psychiatric exam: Normal Affect, Normal Mood Assessment and Plan - Assessment and Plan (Free Text) Assessment: 48F patient, seen and evaluated at bedside for preulcerative lesion to distal 2nd digit. Plan: Patient seen and evaluated at bedside for Dr. Laurie JUAREZS, WBC 8.6 ESR- 116, and CRP >15.0 (09/27/18) Foot X-ray: finding concerning for acute OM of the distal tuft of the left 2nd digit, with cellulitic changes Duplex LE: no evidence of DVT Continue Abx as per Dr. Cathleen vasquez; cont IV Vanco/Azactam Lower extremity MRI; taken results pending Local wound care to R 2nd digit: betadine, DSD Will continue to follow while in house
[2018-09-30] MEDS: Acetaminophen-Codeine 300/30 mg Tab PO PRN (12:55)
--- NOTE | 2018-09-30 17:26 | CP.PCM.PN ---
Subjective - Date & Time of Evaluation Date of Evaluation: 09/30/18 Time of Evaluation: 08:00 - Subjective Subjective: MRI and bone scan pending Vanco levels optimal cont IV Vanco/Azactam Objective - Vital Signs/Intake and Output Vital Signs (last 24 hours): Temp Pulse Resp BP Pulse Ox 98.2 F 73 20 124/83 98 09/30/18 16:00 09/30/18 16:00 09/30/18 16:00 09/30/18 16:00 09/30/18 16:00 Intake and Output: 09/30/18 09/30/18 06:59 18:59 Intake Total 1260 700 Balance 1260 700 - Medications Medications: Current Medications Albuterol (Ventolin Hfa 90 Mcg/Actuation (8 G)) 2 puff IH RQ6 PRN PRN Reason: Shortness of Breath Amlodipine Besylate (Norvasc) 2.5 mg PO DAILY [facility] Last Admin: 09/30/18 09:20 Dose: 2.5 mg Clopidogrel Bisulfate (Plavix) 75 mg PO DAILY [facility] Last Admin: 09/30/18 09:21 Dose: 75 mg Enoxaparin Sodium (Lovenox) 40 mg SC DAILY [facility] Last Admin: 09/30/18 09:20 Dose: 40 mg Gabapentin (Neurontin) 300 mg PO TID [facility] Last Admin: 09/30/18 14:21 Dose: 300 mg Hydrochlorothiazide (Microzide) 12.5 mg PO DAILY [facility] Last Admin: 09/30/18 09:21 Dose: 12.5 mg Vancomycin/Sodium Chloride (Vancomycin 1 Gm/Ns 200 Ml) 1 gm in 200 mls @ 133 mls/hr IVPB Q12H [facility]; Protocol Stop: 10/01/18 21:01 Last Admin: 09/30/18 09:19 Dose: 133 mls/hr Aztreonam 1 gm/ Sodium (Chloride) 100 mls @ 100 mls/hr IVPB Q8H [facility]; Protocol Last Admin: 09/30/18 12:46 Dose: 100 mls/hr Insulin Aspart (Novolog) 0 unit SC ACHS [facility] Last Admin: 09/30/18 17:08 Dose: Not Given Insulin Aspart (Novolog) 12 unit SC TIDAC [facility] Last Admin: 09/30/18 17:09 Dose: 12 unit Insulin Detemir (Levemir) 22 unit SC HS [facility] Last Admin: 09/29/18 21:55 Dose: 22 units Losartan Potassium (Cozaar) 50 mg PO DAILY [facility] Last Admin: 09/30/18 09:21 Dose: 50 mg Metoprolol Succinate (Toprol Xl) 25 mg PO DAILY [facility] Last Admin: 09/30/18 09:21 Dose: 25 mg Rosuvastatin Calcium (Crestor) 40 mg PO HS [facility] Last Admin: 09/29/18 21:54 Dose: 40 mg - Labs Labs: 09/30/18 07:43 09/30/18 07:43 PT 12.4 SECONDS (9.7-12.2) H 09/25/18 18:07 INR 1.1 09/25/18 18:07 APTT 32 SECONDS (21-34) 09/25/18 18:07 Assessment and Plan (1) Cellulitis Status: Acute (2) Diabetes mellitus Status: Acute
[2018-09-30] MEDS: Insulin Detemir 100 units/ml Vial (Levemir) SC SCH (21:35)
[2018-10-01] MEDS: Aztreonam 1 GM in Sodium Chloride 0.9% 100 ML IVPB SCH ×3 (03:16→20:04)
[2018-10-01] MEDS: (Novolog) Insulin Aspart, Recombinant 100 u/ml 10 ml vial SC SCH ×7 (08:17→22:09)
[2018-10-01] MEDS: Vancomycin 1 gm/NS 200 ml 1 GM/200 ML BAG IVPB SCH ×2 (08:30→22:08)
[2018-10-01 08:49] LABS: BASO # 0.1 K/uL (0.0-0.2); BASO % 0.8 % (0.0-2.0); EOS # 0.8 K/uL (0.0-0.7); EOS % 9.2 % (0.0-4.0); HEMOGLOBIN 10.9 g/dL (11.0-16.0); LYMPH # 2.8 K/uL (1.0-4.3); LYMPH % 32.6 % (20.0-40.0); MEAN CELL VOLUME 77.6 fL (81.0-99.0); MEAN CORPUSCULAR HEMOGLOBIN 24.9 pg (27.0-31.0); MEAN CORPUSCULAR HGB CONC 32.1 g/dL (33.0-37.0); MEAN PLATELET VOLUME 10.1 fL (7.2-11.7); MONO # 0.7 K/uL (0.0-0.8); MONO % 8.8 % (0.0-10.0); NEUT # 4.1 K/uL (1.8-7.0); NEUT % 48.6 % (50.0-75.0); NRBC % 0.2 % (0.0-2.0); RBC 4.37 Mil/uL (3.80-5.20); RED CELL DISTRIBUTION WIDTH 13.7 % (11.5-14.5); WHITE BLOOD COUNT 8.5 K/uL (4.8-10.8)
[2018-10-01] MEDS: Enoxaparin 40 mg Syringe SC SCH (09:57)
[2018-10-01] MEDS: Metoprolol Succinate 25 mg XL Tab PO SCH (09:57)
[2018-10-01 10:15] LABS: BLOOD UREA NITROGEN 23 mg/dL (7-17); CALCIUM 8.7 mg/dl (8.6-10.4); GFR NON-AFRICAN AMERICAN 59
--- NOTE | 2018-10-01 10:36 | MRI ---
MRI left forefoot HISTORY: Left 2nd digit cellulitis. Comparison: X-ray dated 09/27/2018 Findings: Soft tissue ulceration noted at the level of the 2nd digit at the level of the distal phalanx. Signal abnormality seen within the 2nd distal phalanx with increased STIR signal, patchy decreased T1 signal, and associated postcontrast enhancement concerning for an underlying acute osteomyelitis. Additional patchy signal abnormality seen at the head of the 2nd middle phalanx with some patchy decreased T1 signal and some patchy increased STIR signal which may represent an early acute and or developing acute osteomyelitis. Clinical correlation. Mild hallux valgus. Degenerative changes noted at the talonavicular joint space. Impression: Soft tissue ulceration noted at the level of the 2nd digit at the level of the distal phalanx. Signal abnormality seen within the 2nd distal phalanx with increased STIR signal, patchy decreased T1 signal, and associated postcontrast enhancement concerning for an underlying acute osteomyelitis. Additional patchy signal abnormality seen at the head of the 2nd middle phalanx with some patchy decreased T1 signal and some patchy increased STIR signal which may represent an early acute and or developing acute osteomyelitis. Clinical correlation.
--- NOTE | 2018-10-01 10:41 | PN ---
DATE: 09/30/2018 ENDO FOLLOWUP NOTE LOCATION: Room 369. SUBJECTIVE: This is a 48-year-old female with recent uncontrolled type 2 insulin-requiring diabetes, now being followed closely for metabolic management. Her glycemic levels are fluctuating but improved overnight with glucose levels ranging from 110 to 233 and 239 mg/dL. LABORATORY DATA: Her chemistries today showed a BUN of 19, sodium 138, potassium 4.3, chloride 104, CO2 28, glucose 110, and creatinine 0.9. ASSESSMENT AND PLAN: So at this time, we will continue the same basal and bolus insulin regimen to allow for dose equilibration and keep her on the NovoLog given as 12 units subcutaneous t.i.d. before meals as ordered. We will continue the Levemir given as 22 units subcutaneous at bedtime daily as ordered. We will continue the low-dose correction scale using NovoLog insulin as given to obviate hypoglycemia and detailed orders have been given. We will follow and advise accordingly. Christie Traore MD
--- NOTE | 2018-10-01 11:22 | NM ---
Date of service: 09/29/2018 PROCEDURE: Three-phase bone Scan HISTORY: r/o OM left foot COMPARISON: 09/29/2018 MRI left forefoot TECHNIQUE: Following administration of 24.1 miCu of Tc MDP three-phase bone scan performed with particular attention to the left foot FINDINGS: Flow component: Increased flow to the left forefoot with focal hypervascularity 2nd digit. Blood pool component: Accumulation of radionuclide left 2nd digit. Delayed images at 3:00: Retention of radionuclide left 2nd digit Other findings: None. IMPRESSION: Positive 3 phase bone scan for acute osseous process 2nd digit left foot distal phalangeal region. Concordant findings (preliminary report) provided by DENNIS HOOKER.
--- NOTE | 2018-10-01 12:55 | CP.PCM.PN ---
Subjective - Date & Time of Evaluation Date of Evaluation: 10/01/18 Time of Evaluation: 12:52 - Subjective Subjective: Patient has no new complaints. Afebrile, in no apparent distress. Objective - Vital Signs/Intake and Output Vital Signs (last 24 hours): Temp Pulse Resp BP Pulse Ox 97.9 F 79 20 117/73 97 10/01/18 08:29 10/01/18 08:29 10/01/18 08:29 10/01/18 08:29 10/01/18 08:29 Intake and Output: 10/01/18 10/01/18 06:59 18:59 Intake Total 1380 Balance 1380 - Medications Medications: Current Medications Albuterol (Ventolin Hfa 90 Mcg/Actuation (8 G)) 2 puff IH RQ6 PRN PRN Reason: Shortness of Breath Amlodipine Besylate (Norvasc) 2.5 mg PO DAILY [facility] Last Admin: 10/01/18 09:57 Dose: 2.5 mg Clopidogrel Bisulfate (Plavix) 75 mg PO DAILY [facility] Last Admin: 10/01/18 09:56 Dose: 75 mg Enoxaparin Sodium (Lovenox) 40 mg SC DAILY [facility] Last Admin: 10/01/18 09:57 Dose: 40 mg Gabapentin (Neurontin) 300 mg PO TID [facility] Last Admin: 10/01/18 09:57 Dose: 300 mg Hydrochlorothiazide (Microzide) 12.5 mg PO DAILY [facility] Last Admin: 10/01/18 09:57 Dose: 12.5 mg Vancomycin/Sodium Chloride (Vancomycin 1 Gm/Ns 200 Ml) 1 gm in 200 mls @ 133 mls/hr IVPB Q12H [facility]; Protocol Stop: 10/01/18 21:01 Last Admin: 10/01/18 08:30 Dose: 133 mls/hr Aztreonam 1 gm/ Sodium (Chloride) 100 mls @ 100 mls/hr IVPB Q8H [facility]; Protocol Last Admin: 10/01/18 11:02 Dose: 100 mls/hr Insulin Aspart (Novolog) 0 unit SC ACHS [facility] Last Admin: 10/01/18 11:38 Dose: Not Given Insulin Aspart (Novolog) 12 unit SC TIDAC [facility] Last Admin: 10/01/18 11:46 Dose: 12 unit Insulin Detemir (Levemir) 22 unit SC HS [facility] Last Admin: 09/30/18 21:35 Dose: 22 units Losartan Potassium (Cozaar) 50 mg PO DAILY [facility] Last Admin: 10/01/18 09:57 Dose: 50 mg Metoprolol Succinate (Toprol Xl) 25 mg PO DAILY [facility] Last Admin: 10/01/18 09:57 Dose: 25 mg Rosuvastatin Calcium (Crestor) 40 mg PO [facility] Last Admin: 09/30/18 21:12 Dose: 40 mg - Labs Labs: 10/01/18 08:37 10/01/18 08:37 PT 12.4 SECONDS (9.7-12.2) H 09/25/18 18:07 INR 1.1 09/25/18 18:07 APTT 32 SECONDS (21-34) 09/25/18 18:07 - Constitutional Appears: Well, Non-toxic, No Acute Distress - Head Exam Head Exam: ATRAUMATIC, NORMAL INSPECTION, NORMOCEPHALIC - Eye Exam Eye Exam: EOMI Pupil Exam: PERRL - ENT Exam ENT Exam: Mucous Membranes Moist, Normal Exam - Neck Exam Neck Exam: Full ROM, Normal Inspection - Respiratory Exam Respiratory Exam: Clear to Ausculation Bilateral, NORMAL BREATHING PATTERN - Cardiovascular Exam Cardiovascular Exam: REGULAR RHYTHM, +S1, +S2 - GI/Abdominal Exam GI & Abdominal Exam: Soft, Normal Bowel Sounds - Rectal Exam Rectal Exam: Deferred - Extremities Exam Extremities Exam: Full ROM (Left Second Toe: Tenderness, edema and erythema. ) - Neurological Exam Neurological Exam: Awake, CN II-XII Intact, Oriented x3 - Skin Skin Exam: Dry (Left Foot: Second Digit: As above. ) Assessment and Plan (1) Acute osteomyelitis of toe of left foot Assessment & Plan: Continue Aztreonam + Vancomycin IV. ID on board. Podiatry on board. Status: Acute (2) Diabetic foot infection Status: Acute (3) Diabetes mellitus Assessment & Plan: Continue Basal + Bolus Insulin. Endocrinology on board. Status: Acute (4) Cellulitis Status: Acute (5) Hypertension Status: Acute
--- NOTE | 2018-10-01 16:40 | CP.PCM.PN ---
Subjective - Date & Time of Evaluation Date of Evaluation: 10/01/18 Time of Evaluation: 16:34 - Subjective Subjective: Podiatry Progress Note for Dr. Sullivan 48F seen and evaluated at bedside for left second digit cellulitic changes with underlying OM. Patient is AAO x 3 and NAD, resting comfortably in bed. Denies any acute overnight events or new pedal complaints at this time. Denies any recent N/V/F/C/CP/SOB/D Objective - Vital Signs/Intake and Output Vital Signs (last 24 hours): Temp Pulse Resp BP Pulse Ox 97.9 F 79 20 117/73 97 10/01/18 08:29 10/01/18 08:29 10/01/18 08:29 10/01/18 08:29 10/01/18 08:29 Intake and Output: 10/01/18 10/01/18 06:59 18:59 Intake Total 1380 Balance 1380 - Medications Medications: Current Medications Albuterol (Ventolin Hfa 90 Mcg/Actuation (8 G)) 2 puff IH RQ6 PRN PRN Reason: Shortness of Breath Amlodipine Besylate (Norvasc) 2.5 mg PO DAILY [facility] Last Admin: 10/01/18 09:57 Dose: 2.5 mg Clopidogrel Bisulfate (Plavix) 75 mg PO DAILY [facility] Last Admin: 10/01/18 09:56 Dose: 75 mg Enoxaparin Sodium (Lovenox) 40 mg SC DAILY [facility] Last Admin: 10/01/18 09:57 Dose: 40 mg Gabapentin (Neurontin) 300 mg PO TID [facility] Last Admin: 10/01/18 13:58 Dose: 300 mg Hydrochlorothiazide (Microzide) 12.5 mg PO DAILY [facility] Last Admin: 10/01/18 09:57 Dose: 12.5 mg Vancomycin/Sodium Chloride (Vancomycin 1 Gm/Ns 200 Ml) 1 gm in 200 mls @ 133 mls/hr IVPB Q12H [facility]; Protocol Stop: 10/01/18 21:01 Last Admin: 10/01/18 08:30 Dose: 133 mls/hr Aztreonam 1 gm/ Sodium (Chloride) 100 mls @ 100 mls/hr IVPB Q8H [facility]; Protocol Last Admin: 10/01/18 11:02 Dose: 100 mls/hr Insulin Aspart (Novolog) 0 unit SC ACHS [facility] Last Admin: 10/01/18 11:38 Dose: Not Given Insulin Aspart (Novolog) 12 unit SC TIDAC [facility] Last Admin: 10/01/18 11:46 Dose: 12 unit Insulin Detemir (Levemir) 22 unit SC HS [facility] Last Admin: 09/30/18 21:35 Dose: 22 units Losartan Potassium (Cozaar) 50 mg PO DAILY [facility] Last Admin: 10/01/18 09:57 Dose: 50 mg Metoprolol Succinate (Toprol Xl) 25 mg PO DAILY [facility] Last Admin: 10/01/18 09:57 Dose: 25 mg Rosuvastatin Calcium (Crestor) 40 mg PO HS [facility] Last Admin: 09/30/18 21:12 Dose: 40 mg - Labs Labs: 10/01/18 08:37 10/01/18 08:37 PT 12.4 SECONDS (9.7-12.2) H 09/25/18 18:07 INR 1.1 09/25/18 18:07 APTT 32 SECONDS (21-34) 09/25/18 18:07 - Constitutional Appears: Well, Non-toxic, No Acute Distress - Extremities Exam Additional comments: LLE focused exam VASC: DP and PT faintly palpable 1/4, CFT < 3 seconds to all digits, TG warm to cool on the right and warm to warm on the left NEURO: Epicritic and protective sensation grossly diminished b/l DERM: pre-ulcerative lesion seen at the tip of the left 2nd digit, increased erythema, edema and warmth noted to the entire left 2nd digit, no active drainage, no malodor, no probe to bone, no other open lesions noted ORTHO: no pain on palpation to the left 2nd digit, MMT 5/5 in all major muscle groups - Neurological Exam Neurological Exam: Alert, Awake, Oriented x3 - Psychiatric Exam Psychiatric exam: Normal Affect, Normal Mood Assessment and Plan - Assessment and Plan (Free Text) Assessment: 48F seen and evaluated at bedside for left second digit cellulitic changes with underlying OM Plan: Patient seen and evaluated Plan discussed with Dr. Sullivan Afebrile, absent leukocytosis Continue abx per ID Foot X-ray: finding concerning for acute OM of the distal tuft of the left 2nd digit, with cellulitic changes MRI: Acute OM of second digit distal phalanx and possibly middle phalanx Bone scan: Positive 3 phase bone scan for acute osseous process 2nd digit left foot distal phalangeal region Vascular consult placed with Dr. Morocho Site dressed with betadine, DSD Patient to OR on for removal of bone pending Vascular recommendations Podiatry will continue to follow
--- NOTE | 2018-10-01 17:44 | CP.PCM.CON ---
History of Present Illness - History of Present Illness History of Present Illness: Vascular Surgery Consult: Dr. Morocho Pt is a 48F with PMHx significant for HTN, DM II, HLD & OA who presented to with complaints of left foot pain/paresthesias. Pt states she has had problems with her left leg for quite some time now due to her DM. Pt states she fell 10 days ago and at that time she was discharged from the ER for negative workup. She did however, notice an ulcer on her left 2nd toe and states it was very pain ful. She reports difficulty ambulating. Denies fevers/chills, nausea/vomiting, chest pain or SOB. Podiatry consulted for L 2nd toe ulcer. Vascular surgery consulted to evaluate PVD. PMHx: as listed PSHx: gastric bypass, cholecystectomy SocialHx: denies smoking, EtOH/drugs ALL: Penicillins Review of Systems - Review of Systems All systems: reviewed and no additional remarkable complaints except (as per HPI) Past Patient History - Past Medical History & Family History Past Medical History?: Yes - Past Social History Smoking Status: Never Smoked - CARDIAC Hx Hypercholesterolemia: Yes Hx Hypertension: Yes - ENDOCRINE/METABOLIC Hx Diabetes Mellitus Type 2: Yes - MUSCULOSKELETAL/RHEUMATOLOGICAL Hx Arthritis: Yes - PSYCHIATRIC Hx Substance Use: No - SURGICAL HISTORY Hx Cholecystectomy: Yes Hx Gastric Bypass Surgery: Yes - ANESTHESIA Hx Anesthesia: Yes Hx Anesthesia Reactions: No Meds Allergies/Adverse Reactions: Allergies Allergy/AdvReac Type Severity Reaction Status Date / Time Penicillins Allergy Intermediate RASH Verified 09/18/18 17:03 - Medications Medications: Current Medications Albuterol (Ventolin Hfa 90 Mcg/Actuation (8 G)) 2 puff IH RQ6 PRN PRN Reason: Shortness of Breath Amlodipine Besylate (Norvasc) 2.5 mg PO DAILY [facility] Last Admin: 10/01/18 09:57 Dose: 2.5 mg Clopidogrel Bisulfate (Plavix) 75 mg PO DAILY [facility] Last Admin: 10/01/18 09:56 Dose: 75 mg Enoxaparin Sodium (Lovenox) 40 mg SC DAILY [facility] Last Admin: 10/01/18 09:57 Dose: 40 mg Gabapentin (Neurontin) 300 mg PO TID [facility] Last Admin: 10/01/18 17:24 Dose: 300 mg Hydrochlorothiazide (Microzide) 12.5 mg PO DAILY [facility] Last Admin: 10/01/18 09:57 Dose: 12.5 mg Vancomycin/Sodium Chloride (Vancomycin 1 Gm/Ns 200 Ml) 1 gm in 200 mls @ 133 mls/hr IVPB Q12H [facility]; Protocol Stop: 10/01/18 21:01 Last Admin: 10/01/18 08:30 Dose: 133 mls/hr Aztreonam 1 gm/ Sodium (Chloride) 100 mls @ 100 mls/hr IVPB Q8H [facility]; Protocol Last Admin: 10/01/18 11:02 Dose: 100 mls/hr Insulin Aspart (Novolog) 0 unit SC ACHS [facility] Last Admin: 10/01/18 17:25 Dose: Not Given Insulin Aspart (Novolog) 12 unit SC TIDAC [facility] Last Admin: 10/01/18 17:25 Dose: 12 unit Insulin Detemir (Levemir) 22 unit SC HS [facility] Last Admin: 09/30/18 21:35 Dose: 22 units Losartan Potassium (Cozaar) 50 mg PO DAILY [facility] Last Admin: 10/01/18 09:57 Dose: 50 mg Metoprolol Succinate (Toprol Xl) 25 mg PO DAILY [facility] Last Admin: 10/01/18 09:57 Dose: 25 mg Rosuvastatin Calcium (Crestor) 40 mg PO HS [facility] Last Admin: 09/30/18 21:12 Dose: 40 mg Physical Exam - Constitutional Appears: Well, No Acute Distress - Head Exam Head Exam: ATRAUMATIC, NORMOCEPHALIC - ENT Exam ENT Exam: Mucous Membranes Moist - Respiratory Exam Respiratory Exam: NORMAL BREATHING PATTERN - Cardiovascular Exam Cardiovascular Exam: RRR - GI/Abdominal Exam GI & Abdominal Exam: Soft - Extremities Exam Additional comments: Left 2nd toe with small ulcer, dressing in place. non-palpable DP/PT, monophasic doppler signals in both DP/PT - Neurological Exam Neurological exam: Alert, Oriented x3 - Skin Skin Exam: Dry, Warm Results - Vital Signs Recent Vital Signs: Last Vital Signs Temp 98.2 F 10/01/18 15:00 Pulse 72 10/01/18 15:00 Resp 20 10/01/18 15:00 BP 89/58 L 10/01/18 15:00 Pulse Ox 96 10/01/18 15:00 - Labs Result Diagrams: 10/01/18 08:37 10/01/18 08:37 Labs: Laboratory Results - last 24 hr 11/10/18 11/10/18 11/10/18 07:37 11:14 16:11 WBC RBC Hgb Hct MCV MCH MCHC RDW Plt Count MPV Neut % (Auto) Lymph % (Auto) Hart % (Auto) Eos % (Auto) Baso % (Auto) Neut # (Auto) Lymph # (Auto) Hart # (Auto) Eos # (Auto) Baso # (Auto) Sodium Potassium Chloride Carbon Dioxide Anion Gap BUN Creatinine Est GFR ( Amer) Est GFR (Non-Af Amer) POC Glucose (mg/dL) 156 H 183 H 224 H Random Glucose Calcium 09/29/18 09/30/18 09/30/18 21:54 07:23 11:29 WBC RBC Hgb Hct MCV MCH MCHC RDW Plt Count MPV Neut % (Auto) Lymph % (Auto) Hart % (Auto) Eos % (Auto) Baso % (Auto) Neut # (Auto) Lymph # (Auto) Hart # (Auto) Eos # (Auto) Baso # (Auto) Sodium Potassium Chloride Carbon Dioxide Anion Gap BUN Creatinine Est GFR ( Amer) Est GFR (Non-Af Amer) POC Glucose (mg/dL) 119 H 94 128 H Random Glucose Calcium 09/30/18 09/30/18 10/01/18 16:35 21:21 07:18 WBC RBC Hgb Hct MCV MCH MCHC RDW Plt Count MPV Neut % (Auto) Lymph % (Auto) Hart % (Auto) Eos % (Auto) Baso % (Auto) Neut # (Auto) Lymph # (Auto) Hart # (Auto) Eos # (Auto) Baso # (Auto) Sodium Potassium Chloride Carbon Dioxide Anion Gap BUN Creatinine Est GFR ( Amer) Est GFR (Non-Af Amer) POC Glucose (mg/dL) 179 H 217 H 138 H Random Glucose Calcium 10/01/18 10/01/18 10/01/18 08:37 08:37 11:10 WBC 8.5 RBC 4.37 Hgb 10.9 L Hct 33.9 L MCV 77.6 L MCH 24.9 L MCHC 32.1 L RDW 13.7 Plt Count 274 MPV 10.1 Neut % (Auto) 48.6 L Lymph % (Auto) 32.6 Hart % (Auto) 8.8 Eos % (Auto) 9.2 H Baso % (Auto) 0.8 Neut # (Auto) 4.1 Lymph # (Auto) 2.8 Hart # (Auto) 0.7 Eos # (Auto) 0.8 H Baso # (Auto) 0.1 Sodium 137 Potassium 4.7 Chloride 102 Carbon Dioxide 29 Anion Gap 10 BUN 23 H Creatinine 1.0 Est GFR ( Amer) > 60 Est GFR (Non-Af Amer) 59 POC Glucose (mg/dL) 160 H Random Glucose 144 H Calcium 8.7 10/01/18 16:17 WBC RBC Hgb Hct MCV MCH MCHC RDW Plt Count MPV Neut % (Auto) Lymph % (Auto) Hart % (Auto) Eos % (Auto) Baso % (Auto) Neut # (Auto) Lymph # (Auto) Hart # (Auto) Eos # (Auto) Baso # (Auto) Sodium Potassium Chloride Carbon Dioxide Anion Gap BUN Creatinine Est GFR ( Amer) Est GFR (Non-Af Amer) POC Glucose (mg/dL) 120 H Random Glucose Calcium Assessment & Plan - Assessment and Plan (Free Text) Assessment: 48F with L 2nd toe ulcer & osteomyelitis as per MRI; being evaluated for PVD Plan: - f/u CTA - f/u CHANG/PVRs - management of toe ulcer per podiatry - IV ABX - d/w Dr. Rashawn Watkins
--- NOTE | 2018-10-01 18:28 | PN ---
DATE: 10/01/2018 LOCATION: 369. SUBJECTIVE: This is a 48-year-old female with recent uncontrolled type 2 insulin-requiring diabetes, now with improved metabolic profile overnight as noted. Her glucose levels have ranged from 138 to 160 mg/dL. It was 217 at bedtime last night. LABORATORY DATA: The latest chemistries showed a BUN of 23, sodium 137, potassium 4.7, chloride 102, CO2 of 29, glucose 144 and creatinine of 1. PLAN: So at this time, we will continue to modify basal and bolus insulin regimen to allow for dose equilibration and keep her on the Novolog given as 12 units subcu t.i.d. before meals as ordered. We will also continue the basal insulin given as Levemir at 22 units subcu at bedtime daily as given. We will obtain serial chemistries and supplement accordingly as needed. We will follow. Christie Traore MD
[2018-10-01] MEDS ORDERED: Iodixanol 320 mg/ml 150 ml Bottle IV ONE (19:44)
[2018-10-01] MEDS: Insulin Detemir 100 units/ml Vial (Levemir) SC SCH (22:09)
[2018-10-02] MEDS: Aztreonam 1 GM in Sodium Chloride 0.9% 100 ML IVPB SCH ×3 (03:58→20:53)
--- NOTE | 2018-10-02 07:54 | CP.PCM.PN ---
Subjective - Date & Time of Evaluation Date of Evaluation: 10/02/18 Time of Evaluation: 06:50 - Subjective Subjective: Surgery progress note for Dr. Morocho Objective - Vital Signs/Intake and Output Vital Signs (last 24 hours): Temp Pulse Resp BP Pulse Ox 98.5 F 72 20 121/78 96 10/02/18 00:00 10/02/18 00:00 10/02/18 00:00 10/02/18 00:00 10/02/18 00:00 Intake and Output: 10/02/18 10/02/18 06:59 18:59 Intake Total 1000 Balance 1000 - Medications Medications: Current Medications Albuterol (Ventolin Hfa 90 Mcg/Actuation (8 G)) 2 puff IH RQ6 PRN PRN Reason: Shortness of Breath Amlodipine Besylate (Norvasc) 2.5 mg PO DAILY [facility] Last Admin: 10/01/18 09:57 Dose: 2.5 mg Clopidogrel Bisulfate (Plavix) 75 mg PO DAILY [facility] Last Admin: 10/01/18 09:56 Dose: 75 mg Enoxaparin Sodium (Lovenox) 40 mg SC DAILY [facility] Last Admin: 10/01/18 09:57 Dose: 40 mg Gabapentin (Neurontin) 300 mg PO TID [facility] Last Admin: 10/01/18 17:24 Dose: 300 mg Hydrochlorothiazide (Microzide) 12.5 mg PO DAILY [facility] Last Admin: 10/01/18 09:57 Dose: 12.5 mg Aztreonam 1 gm/ Sodium (Chloride) 100 mls @ 100 mls/hr IVPB Q8H [facility]; Protocol Last Admin: 10/02/18 03:58 Dose: 100 mls/hr Insulin Aspart (Novolog) 0 unit SC ACHS [facility] Last Admin: 10/01/18 22:09 Dose: Not Given Insulin Aspart (Novolog) 12 unit SC TIDAC [facility] Last Admin: 10/01/18 17:25 Dose: 12 unit Insulin Detemir (Levemir) 22 unit SC HS [facility] Last Admin: 10/01/18 22:09 Dose: 22 units Losartan Potassium (Cozaar) 50 mg PO DAILY [facility] Last Admin: 10/01/18 09:57 Dose: 50 mg Metoprolol Succinate (Toprol Xl) 25 mg PO DAILY [facility] Last Admin: 11/12/18 09:57 Dose: 25 mg Rosuvastatin Calcium (Crestor) 40 mg PO HS [facility] Last Admin: 10/01/18 22:08 Dose: 40 mg - Labs Labs: 10/01/18 08:37 10/01/18 08:37 PT 12.4 SECONDS (9.7-12.2) H 09/25/18 18:07 INR 1.1 09/25/18 18:07 APTT 32 SECONDS (21-34) 09/25/18 18:07
[2018-10-02] MEDS: (Novolog) Insulin Aspart, Recombinant 100 u/ml 10 ml vial SC SCH ×7 (08:27→21:49)
[2018-10-02] MEDS: Enoxaparin 40 mg Syringe SC SCH (10:21)
[2018-10-02] MEDS: Metoprolol Succinate 25 mg XL Tab PO SCH (10:22)
--- NOTE | 2018-10-02 10:28 | CP.PCM.PN ---
Subjective - Date & Time of Evaluation Date of Evaluation: 10/02/18 Time of Evaluation: 10:25 - Subjective Subjective: Podiatry Progress Note for Dr. Sullivan 48F seen and evaluated at bedside with Dr. Sullivan for left second digit cellulitic changes with underlying OM. Patient is AAO x 3 and NAD, resting comfortably in bed. Denies any acute overnight events or new pedal complaints at this time. Denies any recent N/V/F/C/CP/SOB/D Objective - Vital Signs/Intake and Output Vital Signs (last 24 hours): Temp Pulse Resp BP Pulse Ox 98.5 F 71 20 111/72 96 10/02/18 07:55 10/02/18 07:55 10/02/18 07:55 10/02/18 07:55 10/02/18 07:55 Intake and Output: 10/02/18 10/02/18 06:59 18:59 Intake Total 1000 Balance 1000 - Medications Medications: Current Medications Albuterol (Ventolin Hfa 90 Mcg/Actuation (8 G)) 2 puff IH RQ6 PRN PRN Reason: Shortness of Breath Amlodipine Besylate (Norvasc) 2.5 mg PO DAILY [facility] Last Admin: 10/01/18 09:57 Dose: 2.5 mg Clopidogrel Bisulfate (Plavix) 75 mg PO DAILY [facility] Last Admin: 10/01/18 09:56 Dose: 75 mg Enoxaparin Sodium (Lovenox) 40 mg SC DAILY [facility] Last Admin: 10/01/18 09:57 Dose: 40 mg Gabapentin (Neurontin) 300 mg PO TID [facility] Last Admin: 10/01/18 17:24 Dose: 300 mg Hydrochlorothiazide (Microzide) 12.5 mg PO DAILY [facility] Last Admin: 10/01/18 09:57 Dose: 12.5 mg Aztreonam 1 gm/ Sodium (Chloride) 100 mls @ 100 mls/hr IVPB Q8H [facility]; Protocol Last Admin: 10/02/18 03:58 Dose: 100 mls/hr Insulin Aspart (Novolog) 0 unit SC ACHS [facility] Last Admin: 10/02/18 08:27 Dose: Not Given Insulin Aspart (Novolog) 12 unit SC TIDAC [facility] Last Admin: 10/02/18 08:29 Dose: 12 unit Insulin Detemir (Levemir) 22 unit SC HS [facility] Last Admin: 10/01/18 22:09 Dose: 22 units Losartan Potassium (Cozaar) 50 mg PO DAILY [facility] Last Admin: 10/01/18 09:57 Dose: 50 mg Metoprolol Succinate (Toprol Xl) 25 mg PO DAILY [facility] Last Admin: 10/01/18 09:57 Dose: 25 mg Rosuvastatin Calcium (Crestor) 40 mg PO [facility] Last Admin: 10/01/18 22:08 Dose: 40 mg - Labs Labs: 10/01/18 08:37 10/01/18 08:37 PT 12.4 SECONDS (9.7-12.2) H 09/25/18 18:07 INR 1.1 09/25/18 18:07 APTT 32 SECONDS (21-34) 09/25/18 18:07 - Constitutional Appears: Well, Non-toxic, No Acute Distress - Extremities Exam Additional comments: LLE focused exam VASC: DP and PT faintly palpable 1/4, CFT < 3 seconds to all digits, TG warm to cool on the right and warm to warm on the left NEURO: Epicritic and protective sensation grossly diminished b/l DERM: pre-ulcerative lesion seen at the tip of the left 2nd digit, increased erythema, edema and warmth noted to the entire left 2nd digit, no active drainage, no malodor, no probe to bone, no other open lesions noted. No active clinical signs of infection at this time ORTHO: no pain on palpation to the left 2nd digit, MMT 5/5 in all major muscle groups - Neurological Exam Neurological Exam: Alert, Awake, Oriented x3 - Psychiatric Exam Psychiatric exam: Normal Affect, Normal Mood Assessment and Plan - Assessment and Plan (Free Text) Assessment: 48F seen and evaluated at bedside with Dr. Sullivan for left second digit cellulitic changes with underlying OM Plan: Patient seen and evaluated with Dr. Sullivan Afebrile, absent leukocytosis Continue abx per ID Foot X-ray: finding concerning for acute OM of the distal tuft of the left 2nd digit, with cellulitic changes MRI: OM distal and possibly middle phalanx Bone scan: OM distal phalanx LE Duplex: no DVT Abdominal Angiography: Read pending Patient to OR on 10/04 pending vascular approval and cardiac clearance for excision of distal phalanx of left second digit Digit dressed with betadine, DSD Podiatry will continue to follow while patient in house
--- NOTE | 2018-10-02 13:50 | CP.PCM.PN ---
Subjective - Date & Time of Evaluation Date of Evaluation: 10/02/18 Time of Evaluation: 09:00 - Subjective Subjective: 48F seen and evaluated for left second digit cellulitic changes with underlying OM Objective - Vital Signs/Intake and Output Vital Signs (last 24 hours): Temp Pulse Resp BP Pulse Ox 98.5 F 71 20 111/72 96 10/02/18 07:55 10/02/18 07:55 10/02/18 07:55 10/02/18 07:55 10/02/18 07:55 Intake and Output: 10/02/18 10/02/18 06:59 18:59 Intake Total 1000 Balance 1000 - Medications Medications: Current Medications Albuterol (Ventolin Hfa 90 Mcg/Actuation (8 G)) 2 puff IH RQ6 PRN PRN Reason: Shortness of Breath Amlodipine Besylate (Norvasc) 2.5 mg PO DAILY [facility] Last Admin: 10/02/18 10:22 Dose: 2.5 mg Clopidogrel Bisulfate (Plavix) 75 mg PO DAILY [facility] Last Admin: 10/02/18 10:22 Dose: 75 mg Enoxaparin Sodium (Lovenox) 40 mg SC DAILY [facility] Last Admin: 10/02/18 10:21 Dose: 40 mg Gabapentin (Neurontin) 300 mg PO TID [facility] Last Admin: 10/02/18 13:16 Dose: 300 mg Hydrochlorothiazide (Microzide) 12.5 mg PO DAILY [facility] Last Admin: 10/02/18 10:22 Dose: 12.5 mg Aztreonam 1 gm/ Sodium (Chloride) 100 mls @ 100 mls/hr IVPB Q8H [facility]; Protocol Last Admin: 10/02/18 11:38 Dose: 100 mls/hr Insulin Aspart (Novolog) 0 unit SC ACHS [facility] Last Admin: 10/02/18 11:19 Dose: Not Given Insulin Aspart (Novolog) 12 unit SC TIDAC [facility] Last Admin: 10/02/18 11:34 Dose: 12 unit Insulin Detemir (Levemir) 22 unit SC HS [facility] Last Admin: 10/01/18 22:09 Dose: 22 units Losartan Potassium (Cozaar) 50 mg PO DAILY [facility] Last Admin: 10/02/18 10:22 Dose: 50 mg Metoprolol Succinate (Toprol Xl) 25 mg PO DAILY [facility] Last Admin: 10/02/18 10:22 Dose: 25 mg Rosuvastatin Calcium (Crestor) 40 mg PO HS [facility] Last Admin: 10/01/18 22:08 Dose: 40 mg - Labs Labs: 10/01/18 08:37 10/01/18 08:37 PT 12.4 SECONDS (9.7-12.2) H 09/25/18 18:07 INR 1.1 09/25/18 18:07 APTT 32 SECONDS (21-34) 09/25/18 18:07 - Constitutional Appears: Non-toxic, Chronically Ill - Head Exam Head Exam: NORMOCEPHALIC - Eye Exam Eye Exam: absent: Scleral icterus - ENT Exam ENT Exam: Mucous Membranes Dry - Neck Exam Neck Exam: absent: Lymphadenopathy - Respiratory Exam Respiratory Exam: Decreased Breath Sounds - Cardiovascular Exam Cardiovascular Exam: REGULAR RHYTHM - GI/Abdominal Exam GI & Abdominal Exam: Distended, Soft Assessment and Plan (1) Cellulitis Status: Acute (2) Diabetes mellitus Status: Acute - Assessment and Plan (Free Text) Assessment: OR
--- NOTE | 2018-10-02 16:01 | PN ---
DATE: 10/02/2018 ENDOCRINOLOGY FOLLOWUP NOTE LOCATION: In room 369. SUBJECTIVE: This is a 48-year-old female with recent uncontrolled type 2 insulin-requiring diabetes, now being followed closely for metabolic management. Her glycemic levels are fluctuating, but much improved overnight, with glucose values ranging from 172 to 202 mg/dL. LABORATORY DATA: Her latest chemistry showed a BUN of 23, sodium 137, potassium 4.7, chloride 102, CO2 of 29, glucose 144, and creatinine 1. ASSESSMENT AND PLAN: So at this time, we will continue the same basal and bolus insulin regimen to allow for dose equilibration and keep her on the Levemir given as 22 units subcutaneous at bedtime daily, to start tonight. We will also continue the NovoLog given as 12 units t.i.d. before meals as ordered. We will obtain serial chemistries and supplement accordingly as needed. We will follow. Christie Traore MD
--- NOTE | 2018-10-02 17:40 | CP.PCM.PN ---
Subjective - Date & Time of Evaluation Date of Evaluation: 10/02/18 Time of Evaluation: 17:38 - Subjective Subjective: Patient denies headache, chest pain, abdominal pain or urinary symptoms. Objective - Vital Signs/Intake and Output Vital Signs (last 24 hours): Temp Pulse Resp BP Pulse Ox 98.4 F 69 20 128/76 97 10/02/18 17:26 10/02/18 17:26 10/02/18 17:26 10/02/18 17:26 10/02/18 17:26 Intake and Output: 10/02/18 10/02/18 06:59 18:59 Intake Total 1000 500 Balance 1000 500 - Medications Medications: Current Medications Albuterol (Ventolin Hfa 90 Mcg/Actuation (8 G)) 2 puff IH RQ6 PRN PRN Reason: Shortness of Breath Amlodipine Besylate (Norvasc) 2.5 mg PO DAILY [facility] Last Admin: 10/02/18 10:22 Dose: 2.5 mg Clopidogrel Bisulfate (Plavix) 75 mg PO DAILY [facility] Last Admin: 10/02/18 10:22 Dose: 75 mg Enoxaparin Sodium (Lovenox) 40 mg SC DAILY [facility] Last Admin: 10/02/18 10:21 Dose: 40 mg Gabapentin (Neurontin) 300 mg PO TID [facility] Last Admin: 10/02/18 13:16 Dose: 300 mg Hydrochlorothiazide (Microzide) 12.5 mg PO DAILY [facility] Last Admin: 10/02/18 10:22 Dose: 12.5 mg Aztreonam 1 gm/ Sodium (Chloride) 100 mls @ 100 mls/hr IVPB Q8H [facility]; Protocol Last Admin: 10/02/18 11:38 Dose: 100 mls/hr Insulin Aspart (Novolog) 0 unit SC ACHS [facility] Last Admin: 10/02/18 11:19 Dose: Not Given Insulin Aspart (Novolog) 12 unit SC TIDAC [facility] Last Admin: 10/02/18 11:34 Dose: 12 unit Insulin Detemir (Levemir) 22 unit SC HS [facility] Last Admin: 10/01/18 22:09 Dose: 22 units Losartan Potassium (Cozaar) 50 mg PO DAILY [facility] Last Admin: 10/02/18 10:22 Dose: 50 mg Metoprolol Succinate (Toprol Xl) 25 mg PO DAILY [facility] Last Admin: 10/02/18 10:22 Dose: 25 mg Rosuvastatin Calcium (Crestor) 40 mg PO HS [facility] Last Admin: 10/01/18 22:08 Dose: 40 mg - Labs Labs: 10/01/18 08:37 10/01/18 08:37 PT 12.4 SECONDS (9.7-12.2) H 09/25/18 18:07 INR 1.1 09/25/18 18:07 APTT 32 SECONDS (21-34) 09/25/18 18:07 - Constitutional Appears: Well, Non-toxic, No Acute Distress - Head Exam Head Exam: ATRAUMATIC, NORMAL INSPECTION, NORMOCEPHALIC - Neck Exam Neck Exam: Full ROM, Normal Inspection - Respiratory Exam Respiratory Exam: Clear to Ausculation Bilateral, NORMAL BREATHING PATTERN - Cardiovascular Exam Cardiovascular Exam: REGULAR RHYTHM, +S1, +S2 - GI/Abdominal Exam GI & Abdominal Exam: Soft, Normal Bowel Sounds - Extremities Exam Extremities Exam: Full ROM - Neurological Exam Neurological Exam: Alert, Awake, CN II-XII Intact, Oriented x3 - Skin Skin Exam: Dry, Warm (Left Second Toe: Erytema, swelling, warm. ) Assessment and Plan (1) Acute osteomyelitis of toe of left foot Assessment & Plan: Vascular evaluation and Cardiology clearance for surgery. Continue IV Antibiotics. Status: Acute (2) Diabetic foot infection Status: Acute (3) Diabetes mellitus Assessment & Plan: Continue same treatment. Status: Acute (4) Cellulitis Status: Acute (5) Hypertension Assessment & Plan: Continue same treatment. Status: Acute
[2018-10-02] MEDS: Vancomycin 1 gm/NS 200 ml 1 GM/200 ML BAG IVPB SCH (21:48)
[2018-10-02] MEDS: Insulin Detemir 100 units/ml Vial (Levemir) SC SCH (21:49)
[2018-10-03] MEDS: Aztreonam 1 GM in Sodium Chloride 0.9% 100 ML IVPB SCH ×3 (03:03→20:44)
[2018-10-03] MEDS: (Novolog) Insulin Aspart, Recombinant 100 u/ml 10 ml vial SC SCH ×7 (07:38→21:20)
[2018-10-03] MEDS ORDERED: Caffeine Citrated **INJ** 20 MG/ML IV ONE (07:56)
--- NOTE | 2018-10-03 11:17 | CP.PCM.PN ---
Subjective - Date & Time of Evaluation Date of Evaluation: 10/03/18 Time of Evaluation: 11:14 - Subjective Subjective: Podiatry Progress Note for Dr. Sullivan 48F seen and evaluated at bedside for left second digit cellulitic changes with underlying OM. Patient is AAO x 3 and NAD, resting comfortably in bed. Denies any acute overnight events or new pedal complaints at this time. Denies any recent N/V/F/C/CP/SOB/D. Patient is aware that pending cardiac clearance, she will be going to OR tomorrow for excision of bone distal left second digit. Objective - Vital Signs/Intake and Output Vital Signs (last 24 hours): Temp Pulse Resp BP Pulse Ox 97.8 F 68 20 137/76 96 10/03/18 07:40 10/03/18 07:40 10/03/18 07:40 10/03/18 07:40 10/03/18 07:40 Intake and Output: 10/03/18 10/03/18 06:59 18:59 Intake Total 900 Balance 900 - Medications Medications: Current Medications Albuterol (Ventolin Hfa 90 Mcg/Actuation (8 G)) 2 puff IH RQ6 PRN PRN Reason: Shortness of Breath Amlodipine Besylate (Norvasc) 2.5 mg PO DAILY [facility] Last Admin: 10/02/18 10:22 Dose: 2.5 mg Clopidogrel Bisulfate (Plavix) 75 mg PO DAILY [facility] Last Admin: 10/02/18 10:22 Dose: 75 mg Gabapentin (Neurontin) 300 mg PO TID [facility] Last Admin: 10/02/18 17:39 Dose: 300 mg Hydrochlorothiazide (Microzide) 12.5 mg PO DAILY [facility] Last Admin: 10/02/18 10:22 Dose: 12.5 mg Aztreonam 1 gm/ Sodium (Chloride) 100 mls @ 100 mls/hr IVPB Q8H [facility]; Protocol Last Admin: 10/03/18 03:03 Dose: 100 mls/hr Vancomycin/Sodium Chloride (Vancomycin 1 Gm/Ns 200 Ml) 1 gm in 200 mls @ 133 mls/hr IVPB Q12H [facility]; Protocol Stop: 10/07/18 21:01 Last Admin: 10/02/18 21:48 Dose: 133 mls/hr Insulin Aspart (Novolog) 0 unit SC ACHS [facility] Last Admin: 10/03/18 07:38 Dose: Not Given Insulin Aspart (Novolog) 12 unit SC TIDAC [facility] Last Admin: 10/03/18 07:39 Dose: Not Given Insulin Detemir (Levemir) 22 unit SC HS [facility] Last Admin: 10/02/18 21:49 Dose: Not Given Losartan Potassium (Cozaar) 50 mg PO DAILY [facility] Last Admin: 10/02/18 10:22 Dose: 50 mg Metoprolol Succinate (Toprol Xl) 25 mg PO DAILY [facility] Last Admin: 10/02/18 10:22 Dose: 25 mg Rosuvastatin Calcium (Crestor) 40 mg PO HS [facility] Last Admin: 10/02/18 21:48 Dose: 40 mg - Labs Labs: 10/01/18 08:37 10/01/18 08:37 PT 12.4 SECONDS (9.7-12.2) H 09/25/18 18:07 INR 1.1 09/25/18 18:07 APTT 32 SECONDS (21-34) 09/25/18 18:07 - Constitutional Appears: Well, Non-toxic, No Acute Distress - Extremities Exam Additional comments: LLE focused exam VASC: DP and PT faintly palpable 1/4, CFT < 3 seconds to all digits, TG warm to cool on the right and warm to warm on the left NEURO: Epicritic and protective sensation grossly diminished b/l DERM: pre-ulcerative lesion seen at the tip of the left 2nd digit, increased erythema, edema and warmth noted to the entire left 2nd digit, no active drainage, no malodor, no probe to bone, no other open lesions noted. No active clinical signs of infection at this time ORTHO: no pain on palpation to the left 2nd digit, MMT 5/5 in all major muscle groups - Neurological Exam Neurological Exam: Alert, Awake, Oriented x3 - Psychiatric Exam Psychiatric exam: Normal Affect, Normal Mood Assessment and Plan - Assessment and Plan (Free Text) Assessment: 48F seen and evaluated at bedside for left second digit cellulitic changes with underlying OM Plan: Patient seen and evaluated Plan discussed with Dr. Sullivan Afebrile Continue abx per ID Foot X-ray: finding concerning for acute OM of the distal tuft of the left 2nd digit, with cellulitic changes MRI: OM distal and possibly middle phalanx Bone scan: OM distal phalanx LE Duplex: no DVT Abdominal Angiography: Read pending Patient for stress test today Patient to OR 10/04 pending vascular approval and cardiac clearance for excision of distal phalanx of left second digit Digit dressed with betadine, DSD Podiatry will continue to follow while patient in house
--- NOTE | 2018-10-03 11:41 | CARD ---
APPROVED REPORT Date of service: 10/03/2018 EXAM: Two-dimensional and M-mode echocardiogram with Doppler and color Doppler. Other Information Quality : GoodRhythm : RISK FACTORS Hypertension Hyperlipidemia Diabetes 2D DIMENSIONS IVSd0.9 (0.7-1.1cm)Aortic Root (2D)3.0 (2.0-3.7cm) LVDd4.3 (3.9-5.9cm)PWd0.8 (0.7-1.1cm) LA Yyjsff03 (18-58mL)LVDs2.6 (2.5-4.0cm) FS (%) 40.2 %LVEF (%)71.2 (>50%) LVEF (Fonseca's)70 %IVC0.00 cm M-Mode DIMENSIONS RVDd1.53 (2.1-3.2cm)Left Atrium (MM)3.89 (2.5-4.0cm) IVSd0.73 (0.7-1.1cm)Aortic Root2.15 (2.2-3.7cm) LVDd4.69 (4.0-5.6cm)Aortic Cusp Exc.1.46 (1.5-2.0cm) PWd0.90 (0.7-1.1cm)FS (%) 46 % LVDs2.53 (2.0-3.8cm)TAPSE15.66 cm LVEF (%)77 (>50%) Mitral Valve MV E Ycvjwdln63.1cm/sMV A Firolcys88.0cm/sE/A ratio1.1 TDI Lateral E' Peak V9.00cm/sMedial E' Peak V8.55cm/sE/Lateral E'10.7 E/Medial E'11.2 Tricuspid Valve TR Peak Smdnsmyn356uy/sTR Peak Gr.[id number] LEFT VENTRICLE The left ventricle is normal size. There is normal left ventricular wall thickness. Left ventricle systolic function is normal. The Ejection Fraction is 60-65%. There is normal LV segmental wall motion. The left ventricular diastolic function is normal. There is no mass noted in the left ventricle. RIGHT VENTRICLE The right ventricle is normal size. The right ventricular systolic function is normal. ATRIA The left atrium size is normal. The right atrium size is normal. AORTIC VALVE The aortic valve is tri-cuspid. The aortic valve is normal in structure. No aortic regurgitation is present. There is no aortic valvular stenosis. MITRAL VALVE The mitral valve is normal in structure. There is no evidence of mitral valve prolapse. There is no mitral valve regurgitation noted. TRICUSPID VALVE The tricuspid valve is normal in structure. There is trace tricuspid regurgitation. Right ventricular systolic pressure is estimated at less than 30 mmHg. There is no pulmonary hypertension. PULMONIC VALVE The pulmonic valve is not well visualized. There is no pulmonic valvular regurgitation. GREAT VESSELS The aortic root is normal in size. The ascending aorta is normal in size. The IVC is normal in size and collapses >50% with inspiration. PERICARDIAL EFFUSION There is no pericardial effusion. <Conclusion> Left ventricle systolic function is normal. The Ejection Fraction is 60-65%. The left ventricular diastolic function is normal.
--- NOTE | 2018-10-03 11:54 | CP.PCM.PN ---
Subjective - Date & Time of Evaluation Date of Evaluation: 10/03/18 Time of Evaluation: 11:51 - Subjective Subjective: Afebrile, in no apparent distress. Objective - Vital Signs/Intake and Output Vital Signs (last 24 hours): Temp Pulse Resp BP Pulse Ox 97.8 F 68 20 137/76 96 10/03/18 07:40 10/03/18 07:40 10/03/18 07:40 10/03/18 07:40 10/03/18 07:40 Intake and Output: 10/03/18 10/03/18 06:59 18:59 Intake Total 900 Balance 900 - Medications Medications: Current Medications Albuterol (Ventolin Hfa 90 Mcg/Actuation (8 G)) 2 puff IH RQ6 PRN PRN Reason: Shortness of Breath Amlodipine Besylate (Norvasc) 2.5 mg PO DAILY [facility] Last Admin: 10/02/18 10:22 Dose: 2.5 mg Clopidogrel Bisulfate (Plavix) 75 mg PO DAILY [facility] Last Admin: 10/02/18 10:22 Dose: 75 mg Gabapentin (Neurontin) 300 mg PO TID [facility] Last Admin: 10/02/18 17:39 Dose: 300 mg Hydrochlorothiazide (Microzide) 12.5 mg PO DAILY [facility] Last Admin: 10/02/18 10:22 Dose: 12.5 mg Aztreonam 1 gm/ Sodium (Chloride) 100 mls @ 100 mls/hr IVPB Q8H [facility]; Protocol Last Admin: 10/03/18 03:03 Dose: 100 mls/hr Vancomycin/Sodium Chloride (Vancomycin 1 Gm/Ns 200 Ml) 1 gm in 200 mls @ 133 mls/hr IVPB Q12H [facility]; Protocol Stop: 10/07/18 21:01 Last Admin: 10/02/18 21:48 Dose: 133 mls/hr Insulin Aspart (Novolog) 0 unit SC ACHS [facility] Last Admin: 10/03/18 07:38 Dose: Not Given Insulin Aspart (Novolog) 12 unit SC TIDAC [facility] Last Admin: 10/03/18 07:39 Dose: Not Given Insulin Detemir (Levemir) 22 unit SC HS [facility] Last Admin: 10/02/18 21:49 Dose: Not Given Losartan Potassium (Cozaar) 50 mg PO DAILY [facility] Last Admin: 10/02/18 10:22 Dose: 50 mg Metoprolol Succinate (Toprol Xl) 25 mg PO DAILY [facility] Last Admin: 10/02/18 10:22 Dose: 25 mg Rosuvastatin Calcium (Crestor) 40 mg PO HS [facility] Last Admin: 10/02/18 21:48 Dose: 40 mg - Labs Labs: 10/01/18 08:37 10/01/18 08:37 PT 12.4 SECONDS (9.7-12.2) H 09/25/18 18:07 INR 1.1 09/25/18 18:07 APTT 32 SECONDS (21-34) 09/25/18 18:07 - Constitutional Appears: Well, Non-toxic, No Acute Distress - Head Exam Head Exam: ATRAUMATIC, NORMAL INSPECTION, NORMOCEPHALIC - Neck Exam Neck Exam: Full ROM, Normal Inspection - Respiratory Exam Respiratory Exam: Clear to Ausculation Bilateral, NORMAL BREATHING PATTERN - Cardiovascular Exam Cardiovascular Exam: REGULAR RHYTHM, +S1, +S2 - GI/Abdominal Exam GI & Abdominal Exam: Soft, Normal Bowel Sounds - Rectal Exam Rectal Exam: Deferred - Extremities Exam Extremities Exam: Full ROM (Left Foot: 2nd digit: Edema, erythema, warm. ) - Back Exam Back Exam: Full ROM, NORMAL INSPECTION - Neurological Exam Neurological Exam: Alert, Awake, CN II-XII Intact, Oriented x3 - Psychiatric Exam Psychiatric exam: Normal Affect, Normal Mood Assessment and Plan (1) Acute osteomyelitis of toe of left foot Assessment & Plan: Continue same treatment. Cardiology clearance for surgery. Scheduled for surgery in AM. Status: Acute (2) Diabetic foot infection Assessment & Plan: Continue same treatment. Status: Acute (3) Cellulitis Assessment & Plan: Continue same treatment. Status: Acute (4) Diabetes mellitus Assessment & Plan: Continue same treatment. Status: Acute (5) Hypertension Assessment & Plan: Continue same treatment. Status: Acute
[2018-10-03] MEDS: Metoprolol Succinate 25 mg XL Tab PO SCH ×2 (12:45→14:52)
[2018-10-03] MEDS: Enoxaparin 40 mg Syringe SC SCH (14:52)
[2018-10-03] MEDS: Vancomycin 1 gm/NS 200 ml 1 GM/200 ML BAG IVPB SCH ×2 (14:56→22:26)
--- NOTE | 2018-10-03 16:01 | VASCLAB ---
Date of service: 10/03/2018 STUDY DESCRIPTION: Lower Extremity Arterial Exam (PVR). HISTORY: L 2nd toe ulcer PRIORS: None. TECHNIQUE: Pulse volume recording waveforms and segmental pressures of bilateral lower extremities at multiple levels were obtained. Ankle Brachial Indices (ABIs) were calculated. Report prepared by DARREN Torres, RVT RIGHT LOWER EXTREMITY: * Brachial artery: Pressure - 135 mmHg. * High thigh: Pressure - mmHg: Ratio - : PVR waveform - Pulsatile * Low thigh: Pressure - mmHg: Ratio - PVR waveform: Pulsatile * Calf: Pressure - 220 mmHg: Ratio - NC PVR waveform: Pulsatile * Posterior tibial Artery: Pressure - 220 mmHg: Ratio - NC PVR waveform: Pulsatile * Dorsalis pedis Artery: Pressure - 220 mmHg: Ratio - NC PVR waveform: Pulsatile * Great toe: Pressure - mmHg: Ratio - PVR waveform: Ankle brachial index (CHANG): NC LEFT LOWER EXTREMITY: * Brachial artery: Pressure - 131 mmHg. * High thigh: Pressure - mmHg: Ratio - : PVR waveform - Pulsatile * Low thigh: Pressure - mmHg: Ratio - PVR waveform: Pulsatile * Calf: Pressure - 220 mmHg: Ratio - NC PVR waveform: Pulsatile * Posterior tibial Artery: Pressure - 220 mmHg: Ratio - NC PVR waveform: Pulsatile * Dorsalis pedis Artery: Pressure - 220 mmHg: Ratio - NC PVR waveform: Pulsatile * Great toe: Pressure - mmHg: Ratio - PVR waveform: Ankle brachial index (CHANG): NC OTHER FINDINGS: Right: Left: IMPRESSION: Right: The ankle pressure index of the right lower extremity is non-diagnostic due to possible arterial wall calcifications. Left: The ankle pressure index of the left lower extremity is non-diagnostic due to possible arterial wall calcifications.
--- NOTE | 2018-10-03 18:39 | CP.PCM.PN ---
Subjective - Date & Time of Evaluation Date of Evaluation: 10/03/18 Time of Evaluation: 06:00 - Subjective Subjective: rx renewed Objective - Vital Signs/Intake and Output Vital Signs (last 24 hours): Temp Pulse Resp BP Pulse Ox 97.8 F 73 20 130/84 98 10/03/18 16:00 10/03/18 16:00 10/03/18 16:00 10/03/18 16:00 10/03/18 16:00 Intake and Output: 10/03/18 10/03/18 06:59 18:59 Intake Total 900 Balance 900 - Medications Medications: Current Medications Albuterol (Ventolin Hfa 90 Mcg/Actuation (8 G)) 2 puff IH RQ6 PRN PRN Reason: Shortness of Breath Amlodipine Besylate (Norvasc) 2.5 mg PO DAILY [facility] Last Admin: 10/03/18 14:51 Dose: 2.5 mg Clopidogrel Bisulfate (Plavix) 75 mg PO DAILY [facility] Last Admin: 10/03/18 14:51 Dose: 75 mg Gabapentin (Neurontin) 300 mg PO TID [facility] Last Admin: 10/03/18 17:47 Dose: 300 mg Hydrochlorothiazide (Microzide) 12.5 mg PO DAILY [facility] Last Admin: 10/03/18 14:52 Dose: 12.5 mg Aztreonam 1 gm/ Sodium (Chloride) 100 mls @ 100 mls/hr IVPB Q8H [facility]; Protocol Last Admin: 10/03/18 12:00 Dose: 100 mls/hr Vancomycin/Sodium Chloride (Vancomycin 1 Gm/Ns 200 Ml) 1 gm in 200 mls @ 133 mls/hr IVPB Q12H [facility]; Protocol Stop: 10/07/18 21:01 Last Admin: 10/03/18 14:56 Dose: 133 mls/hr Insulin Aspart (Novolog) 0 unit SC ACHS [facility] Last Admin: 10/03/18 16:25 Dose: Not Given Insulin Aspart (Novolog) 12 unit SC TIDAC [facility] Last Admin: 10/03/18 17:47 Dose: 12 unit Insulin Detemir (Levemir) 22 unit SC HS [facility] Last Admin: 10/02/18 21:49 Dose: Not Given Losartan Potassium (Cozaar) 50 mg PO DAILY [facility] Last Admin: 10/03/18 14:51 Dose: 50 mg Metoprolol Succinate (Toprol Xl) 25 mg PO DAILY [facility] Last Admin: 10/03/18 14:52 Dose: 25 mg Rosuvastatin Calcium (Crestor) 40 mg PO [facility] Last Admin: 10/02/18 21:48 Dose: 40 mg - Labs Labs: 10/01/18 08:37 10/01/18 08:37 PT 12.4 SECONDS (9.7-12.2) H 09/25/18 18:07 INR 1.1 09/25/18 18:07 APTT 32 SECONDS (21-34) 09/25/18 18:07 Assessment and Plan (1) Cellulitis Status: Acute (2) Diabetes mellitus Status: Acute
--- NOTE | 2018-10-03 20:58 | PN ---
DATE: 10/03/2018 ENDOCRINOLOGY FOLLOWUP NOTE LOCATION: Room 369. This is a 48-year-old female with recent uncontrolled type 2 insulin-requiring diabetes, was undergoing IV antibiotic management for underlying cellulitis and osteomyelitis and is now being followed closely for metabolic management. Her glycemic levels are fluctuating, but improved and her glucose values have ranged from 97 to 139 and 274 mg/dL. She is scheduled for a local debridement of the lower extremity and necrotic toe ulcer tomorrow and will be kept n.p.o. as noted overnight. So at this time, we will continue the same basal and bolus insulin regimen to allow for dose equilibration and keep her on the Levemir given as 22 units subcu at bedtime daily to start tonight. We will also continue the NovoLog given as 12 units subcu t.i.d. before meals, but to hold off for the NovoLog tomorrow prior to the actual procedure. We will obtain serial chemistries and supplement accordingly as needed. We will follow. Christie Traore MD
[2018-10-03] MEDS: Insulin Detemir 100 units/ml Vial (Levemir) SC SCH (21:25)
[2018-10-04] MEDS: Aztreonam 1 GM in Sodium Chloride 0.9% 100 ML IVPB SCH ×3 (04:04→20:40)
[2018-10-04] MEDS ORDERED: Lidocaine 2% MPF (5 ml) Inj ONE (07:56)
[2018-10-04] MEDS ORDERED: Bupivacaine HCl 0.5% PF (30 ml) Inj ONE (07:56)
[2018-10-04] MEDS: (Novolog) Insulin Aspart, Recombinant 100 u/ml 10 ml vial SC SCH ×7 (08:11→21:37)
[2018-10-04 08:36] LABS: BASO # 0.1 K/uL (0.0-0.2); BASO % 0.7 % (0.0-2.0); EOS # 0.9 K/uL (0.0-0.7); EOS % 11.3 % (0.0-4.0); LYMPH # 1.8 K/uL (1.0-4.3); LYMPH % 23.4 % (20.0-40.0); MEAN CORPUSCULAR HEMOGLOBIN 25.2 pg (27.0-31.0); MEAN CORPUSCULAR HGB CONC 32.3 g/dL (33.0-37.0); MEAN PLATELET VOLUME 9.9 fL (7.2-11.7); MONO # 0.7 K/uL (0.0-0.8); MONO % 8.8 % (0.0-10.0); NEUT # 4.4 K/uL (1.8-7.0); NEUT % 55.8 % (50.0-75.0); NRBC % 0.1 % (0.0-2.0); RBC 4.36 Mil/uL (3.80-5.20); RED CELL DISTRIBUTION WIDTH 13.4 % (11.5-14.5); WHITE BLOOD COUNT 7.8 K/uL (4.8-10.8)
[2018-10-04] MEDS ORDERED: Midazolam 2 MG/2 ML VIAL ONE (08:39)
[2018-10-04] MEDS ORDERED: Propofol 10 mg/ml Inj (20 ML) ONE (08:39)
[2018-10-04 08:54] LABS: ALB/GLOB RATIO 0.9 (1.0-2.1); ALBUMIN 3.3 g/dL (3.5-5.0); ALT/SGPT 32 U/L (9-52); AST/SGOT 29 U/L (14-36); BLOOD UREA NITROGEN 20 mg/dL (7-17); CALCIUM 8.8 mg/dl (8.6-10.4); GFR NON-AFRICAN AMERICAN 53
[2018-10-04] MEDS: Vancomycin 1 gm/NS 200 ml 1 GM/200 ML BAG IVPB SCH (09:00)
[2018-10-04] MEDS ORDERED: ePHEDrine 50 mg/ml Inj ONE (09:07)
[2018-10-04] MEDS ORDERED: Oxycodone/Acetaminophen 5/325 mg Tab PO PRN ×2 (09:43)
[2018-10-04] MEDS ORDERED: HYDROmorphone 0.5 mg/0.5 ml ISec IVP PRN (09:49)
--- NOTE | 2018-10-04 09:49 | PCM.SURG1 ---
Surgeon's Initial Post Op Note - Surgeon's Notes Surgeon: Dr. Sullivan, DPM Rod Straightener: Dr. Shante Reynaga, PGY1, Dr. Alan De La Cruz, PGY2 Type of Anesthesia: General Endo, General LMA, IV Sedation Anesthesia Administered By: Dr. Gonzalez Pre-Operative Diagnosis: Left foot Distal phalanx osteomyelitis Operative Findings: see dictation. I: 10 cc 1:1 2% Lidocaine and 0.5% Marcaine plain. M: 4-0 Nylon Post-Operative Diagnosis: same Operation Performed: Left Foot 2nd digit distal phalanx resection Specimen/Specimens Removed: left foot 2nd digit distal phalanx Estimated Blood Loss: EBL {In ML}: 5 Blood Products Given: N/A Drains Used: No Drains Post-Op Condition: Good Date of Surgery/Procedure: 10/04/18 Time of Surgery/Procedure: 09:48
--- NOTE | 2018-10-04 10:40 | CP.PCM.PN ---
Subjective - Date & Time of Evaluation Date of Evaluation: 10/04/18 Time of Evaluation: 07:20 - Subjective Subjective: Vascular surgery progress note for Dr. Morocho Pt seen and examined this AM. Patient reported some moderate pain in her foot but denies any chest pain, SOB, or any other symptoms Objective - Vital Signs/Intake and Output Vital Signs (last 24 hours): Temp Pulse Resp BP Pulse Ox 97 F L 80 16 125/65 100 10/04/18 09:41 10/04/18 10:00 10/04/18 10:00 10/04/18 10:00 10/04/18 10:00 Intake and Output: 10/04/18 10/04/18 06:59 18:59 Intake Total 800 400 Balance 800 400 - Medications Medications: Current Medications Acetaminophen (Tylenol 325mg Tab) 650 mg PO Q6 PRN PRN Reason: Pain, Mild (1-3) Albuterol (Ventolin Hfa 90 Mcg/Actuation (8 G)) 2 puff IH RQ6 PRN PRN Reason: Shortness of Breath Amlodipine Besylate (Norvasc) 2.5 mg PO DAILY [facility] Last Admin: 10/03/18 14:51 Dose: 2.5 mg Clopidogrel Bisulfate (Plavix) 75 mg PO DAILY [facility] Last Admin: 10/03/18 14:51 Dose: 75 mg Gabapentin (Neurontin) 300 mg PO TID [facility] Last Admin: 10/03/18 17:47 Dose: 300 mg Hydrochlorothiazide (Microzide) 12.5 mg PO DAILY [facility] Last Admin: 10/03/18 14:52 Dose: 12.5 mg Hydromorphone HCl (Dilaudid) 0.5 mg IVP Q10M PRN PRN Reason: Pain, moderate (4-7) Stop: 10/04/18 11:51 Aztreonam 1 gm/ Sodium (Chloride) 100 mls @ 100 mls/hr IVPB Q8H [facility]; Protocol Last Admin: 10/04/18 04:04 Dose: 100 mls/hr Vancomycin/Sodium Chloride (Vancomycin 1 Gm/Ns 200 Ml) 1 gm in 200 mls @ 133 mls/hr IVPB Q12H [facility]; Protocol Stop: 10/07/18 21:01 Last Admin: 10/04/18 09:00 Dose: 200 mls Lactated Ringer's (Lactated Ringer's) 1,000 mls @ 150 mls/hr IV .Q6H40M [facility] Insulin Aspart (Novolog) 0 unit SC ACHS [facility] Last Admin: 10/04/18 08:11 Dose: Not Given Insulin Aspart (Novolog) 12 unit SC TIDAC [facility] Last Admin: 10/04/18 08:12 Dose: Not Given Insulin Detemir (Levemir) 22 unit SC HS [facility] Last Admin: 10/03/18 21:25 Dose: Not Given Losartan Potassium (Cozaar) 50 mg PO DAILY [facility] Last Admin: 10/03/18 14:51 Dose: 50 mg Metoprolol Succinate (Toprol Xl) 25 mg PO DAILY [facility] Last Admin: 10/03/18 14:52 Dose: 25 mg Oxycodone/Acetaminophen (Percocet 5/325 Mg Tab) 1 tab PO Q6H PRN PRN Reason: Pain, moderate (4-7) Stop: 10/07/18 09:44 Oxycodone/Acetaminophen (Percocet 5/325 Mg Tab) 2 tab PO Q4H PRN PRN Reason: Pain, severe (8-10) Stop: 10/07/18 09:44 Rosuvastatin Calcium (Crestor) 40 mg PO [facility] Last Admin: 10/03/18 21:36 Dose: 40 mg - Labs Labs: 10/04/18 08:18 10/04/18 08:18 PT 12.4 SECONDS (9.7-12.2) H 09/25/18 18:07 INR 1.1 09/25/18 18:07 APTT 32 SECONDS (21-34) 09/25/18 18:07 - Constitutional Appears: Well, Non-toxic, No Acute Distress - Head Exam Head Exam: ATRAUMATIC, NORMOCEPHALIC - Eye Exam Eye Exam: Normal appearance. absent: Conjunctival injection, Scleral icterus - ENT Exam ENT Exam: Mucous Membranes Moist, Normal Oropharynx - Respiratory Exam Respiratory Exam: NORMAL BREATHING PATTERN. absent: Accessory Muscle Use, Respiratory Distress - Cardiovascular Exam Cardiovascular Exam: RRR - GI/Abdominal Exam GI & Abdominal Exam: Soft. absent: Distended - Extremities Exam Additional comments: left foot with dressing intact, skin warm to the touch - Neurological Exam Neurological Exam: Alert, Awake, Oriented x3 - Psychiatric Exam Psychiatric exam: Normal Affect, Normal Mood - Skin Skin Exam: Dry, Normal Color, Warm Assessment and Plan - Assessment and Plan (Free Text) Assessment: 48F with chronic wound of foot Plan: Patient vascular studies do not demonstrate significant stenosis of lower extremity vascular supply, No vascular intervention indicated Patient may proceed with podiatry intervention Continue medical management per primary Contact surgical team for any further questions or concerns Discussed with Dr. Morocho, who agrees with above Nikia Chau, PGY2
[2018-10-04] MEDS: Metoprolol Succinate 25 mg XL Tab PO SCH (11:59)
--- NOTE | 2018-10-04 13:24 | RAD ---
Date of service: 10/04/2018 HISTORY: Verify right-sided PICC line. COMPARISON: No prior. FINDINGS: In situ right-sided PICC line, tip of which appears to lie within the SVC at the brachiocephalic junction. LUNGS: Mild bibasilar atelectasis and/or infiltrates. Right greater than left PLEURA: No significant pleural effusion identified, no pneumothorax apparent. CARDIOVASCULAR: Minor aortic atherosclerotic calcification present. Cardiomegaly.. No pulmonary vascular congestion. OSSEOUS STRUCTURES: No significant abnormalities. VISUALIZED UPPER ABDOMEN: Normal. OTHER FINDINGS: None. IMPRESSION: In situ right-sided PICC line. Mild bibasilar atelectasis and/or infiltrates right greater than left. Cardiomegaly.
--- NOTE | 2018-10-04 13:48 | RAD ---
Date of service: 10/04/2018 HISTORY: Repeat x-ray to verify PICC tip COMPARISON: No prior. FINDINGS: Right sided PICC line with tip in the SVC/RA junction. LUNGS: Mild bibasilar atelectasis. PLEURA: No significant pleural effusion identified, no pneumothorax apparent. CARDIOVASCULAR: Mild aortic atherosclerotic calcification present. Heart size is enlarged. No pulmonary vascular congestion. OSSEOUS STRUCTURES: No significant abnormalities. VISUALIZED UPPER ABDOMEN: Normal. OTHER FINDINGS: None. IMPRESSION: Right-sided PICC line as described. Mild bibasilar atelectasis.
--- NOTE | 2018-10-04 14:10 | CT ---
Date of service: 10/01/2018 PROCEDURE: CT Angiography Abdomen, Pelvis and Lower Extremity with Contrast HISTORY: L 2nd digit ulcers COMPARISON: None available. TECHNIQUE: Technique: CT angiography of the abdomen, pelvis and bilateral lower extremities performed in the arterial phase of enhancement. Coronal and sagittal reformats, and well as rotating MIP images of the vessels generated at the workstation. Intravenous contrast dose: 150 milliliters Visipaque 320 Radiation dose: Total exam DLP = 3209.0 mGy-cm. This CT exam was performed using one or more of the following dose reduction techniques: Automated exposure control, adjustment of the mA and/or kV according to patient size, and/or use of iterative reconstruction technique. FINDINGS: CT ANGIOGRAPHY: ABDOMINAL AORTA:: The abdominal was unremarkable. MAJOR AORTIC BRANCHES: Celiac [place]: Unremarkable. Superior mesenteric artery: Unremarkable. Inferior mesenteric artery: Unremarkable. Renal arteries: Unremarkable. PELVIC ARTERIES: Right Common Iliac: Unremarkable. Right External Iliac: Unremarkable. Right Internal Iliac: Unremarkable. Left Common Iliac: Unremarkable. Left External Iliac: Unremarkable. Left Internal Iliac: Unremarkable. RIGHT LOWER EXTREMITY ARTERIES: Right Common Femoral: Unremarkable. Right Superficial Femoral: Is moderate calcific plaque in the SFA without significant stenosis. Right Profunda Femoris: Unremarkable. Right Popliteal:No significant stenosis of popliteal artery. Right Anterior Tibial: Moderate calcific plaque with no significant stenosis. Right Tibioperoneal Trunk: Unremarkable. Right Posterior Tibial: Occludes in the proximal segment with no reconstitution. Right Peroneal: Unremarkable. Right dorsalis pedis : Unremarkable. LEFT LOWER EXTREMITY ARTERIES: Left Common Femoral: Unremarkable. Left Superficial Femoral: There is moderate calcific plaque in the SFA with no significant stenosis. Left Profunda Femoris: Unremarkable. Left Popliteal: There is moderate calcific plaque in the popliteal artery mild stenosis in the proximal segment. Left Anterior Tibial: Moderate calcific plaque with no significant stenosis. Left Tibioperoneal Trunk: Unremarkable. Left Posterior Tibial: Occluded at the origin with no reconstitution. Left Peroneal: Mild calcific plaque but otherwise patent. Left Dorsalis pedis: Unremarkable. NON-ANGIOGRAPHIC ASPECT OF THE EXAM: LOWER THORAX: Unremarkable. LIVER: Nonspecific pneumobilia hepatic lobe. No gross lesion or ductal dilatation. GALLBLADDER AND BILE DUCTS: Unremarkable. PANCREAS: Unremarkable. No gross lesion or ductal dilatation. SPLEEN: Unremarkable. ADRENALS: Unremarkable. No mass. KIDNEYS AND URETERS: Unremarkable. No hydronephrosis. No solid mass. STOMACH AND BOWEL: Unremarkable. No obstruction. No gross mural thickening. APPENDIX: Normal appendix. PERITONEUM: Unremarkable. No free fluid. No free air. LYMPH NODES: Unremarkable. No enlarged lymph nodes. BLADDER: Unremarkable. REPRODUCTIVE: Unremarkable. BONES: No acute fracture. OTHER FINDINGS: None. IMPRESSION: CT ANGIOGRAM ABDOMEN/PELVIS: 1. Essentially unremarkable CT angiogram of the abdomen pelvis. LEFT LOWER EXTREMITY CT ANGIOGRAM: 1. The common femoral artery, profunda femoral artery. 2. There is moderate calcific plaque in the SFA without significant stenosis. 3. There is moderate stenosis of the proximal popliteal artery. 4. Runoff shows occlusion of the posterior tibial artery at the origin. The anterior tibial artery and peroneal artery both have moderate calcific plaque without significant stenosis. RIGHT LOWER EXTREMITY CT ANGIOGRAM: 1. The common femoral artery, profunda femoral artery normal. 2. There is moderate calcific plaque in the SFA without significant stenosis. 3. There is moderate calcific plaque in the popliteal artery with no significant stenosis. 4. Runoff shows occlusion of the posterior tibial artery at the origin. The anterior tibial artery and post tibial artery have mild calcific plaque and no significant stenosis.
--- NOTE | 2018-10-04 16:28 | CP.PCM.PN ---
Subjective - Date & Time of Evaluation Date of Evaluation: 10/04/18 Time of Evaluation: 07:00 - Subjective Subjective: Vanco on hold stable post op Objective - Vital Signs/Intake and Output Vital Signs (last 24 hours): Temp Pulse Resp BP Pulse Ox 97.6 F 86 20 107/70 95 10/04/18 11:45 10/04/18 11:45 10/04/18 11:45 10/04/18 11:45 10/04/18 11:45 Intake and Output: 10/04/18 10/04/18 06:59 18:59 Intake Total 800 1040 Balance 800 1040 - Medications Medications: Current Medications Acetaminophen (Tylenol 325mg Tab) 650 mg PO Q6 PRN PRN Reason: Pain, Mild (1-3) Albuterol (Ventolin Hfa 90 Mcg/Actuation (8 G)) 2 puff IH RQ6 PRN PRN Reason: Shortness of Breath Amlodipine Besylate (Norvasc) 2.5 mg PO DAILY [facility] Last Admin: 10/04/18 11:58 Dose: Not Given Clopidogrel Bisulfate (Plavix) 75 mg PO DAILY [facility] Last Admin: 10/04/18 11:59 Dose: Not Given Gabapentin (Neurontin) 300 mg PO TID [facility] Last Admin: 10/04/18 14:10 Dose: 300 mg Hydrochlorothiazide (Microzide) 12.5 mg PO DAILY [facility] Last Admin: 10/04/18 11:58 Dose: Not Given Aztreonam 1 gm/ Sodium (Chloride) 100 mls @ 100 mls/hr IVPB Q8H [facility]; Protocol Last Admin: 10/04/18 11:57 Dose: 100 mls/hr Vancomycin/Sodium Chloride (Vancomycin 1 Gm/Ns 200 Ml) 1 gm in 200 mls @ 133 mls/hr IVPB Q12H [facility]; Protocol Stop: 10/07/18 21:01 Last Admin: 10/04/18 09:00 Dose: 200 mls Lactated Ringer's (Lactated Ringer's) 1,000 mls @ 150 mls/hr IV .Q6H40M [facility] Insulin Aspart (Novolog) 0 unit SC ACHS [facility] Last Admin: 10/04/18 12:22 Dose: Not Given Insulin Aspart (Novolog) 12 unit SC TIDAC [facility] Last Admin: 10/04/18 12:30 Dose: Not Given Insulin Detemir (Levemir) 22 unit SC [facility] Last Admin: 10/03/18 21:25 Dose: Not Given Losartan Potassium (Cozaar) 50 mg PO DAILY [facility] Last Admin: 10/04/18 11:58 Dose: Not Given Metoprolol Succinate (Toprol Xl) 25 mg PO DAILY [facility] Last Admin: 10/04/18 11:59 Dose: Not Given Oxycodone/Acetaminophen (Percocet 5/325 Mg Tab) 1 tab PO Q6H PRN PRN Reason: Pain, moderate (4-7) Stop: 10/07/18 09:44 Oxycodone/Acetaminophen (Percocet 5/325 Mg Tab) 2 tab PO Q4H PRN PRN Reason: Pain, severe (8-10) Stop: 10/07/18 09:44 Rosuvastatin Calcium (Crestor) 40 mg PO [facility] Last Admin: 10/03/18 21:36 Dose: 40 mg - Labs Labs: 10/04/18 08:18 10/04/18 08:18 PT 12.4 SECONDS (9.7-12.2) H 09/25/18 18:07 INR 1.1 09/25/18 18:07 APTT 32 SECONDS (21-34) 09/25/18 18:07 - Constitutional Appears: Non-toxic, Chronically Ill - Head Exam Head Exam: NORMOCEPHALIC - Eye Exam Eye Exam: absent: Scleral icterus - ENT Exam ENT Exam: Mucous Membranes Dry - Neck Exam Neck Exam: absent: Lymphadenopathy - Respiratory Exam Respiratory Exam: Decreased Breath Sounds - Cardiovascular Exam Cardiovascular Exam: REGULAR RHYTHM - GI/Abdominal Exam GI & Abdominal Exam: Distended Assessment and Plan (1) Cellulitis Status: Acute (2) Diabetes mellitus Status: Acute
[2018-10-04] MEDS: Lactated Ringer's 1,000 ML IV SCH ×3 (17:00→21:49)
[2018-10-04] MEDS: Insulin Detemir 100 units/ml Vial (Levemir) SC SCH (21:49)
[2018-10-05] MEDS: Aztreonam 1 GM in Sodium Chloride 0.9% 100 ML IVPB SCH ×3 (03:52→20:34)
[2018-10-05] MEDS: (Novolog) Insulin Aspart, Recombinant 100 u/ml 10 ml vial SC SCH ×5 (07:50→22:05)
[2018-10-05] MEDS: Metoprolol Succinate 25 mg XL Tab PO SCH (09:41)
--- NOTE | 2018-10-05 10:11 | PN ---
DATE: 10/04/2018 LOCATION: Room 369. SUBJECTIVE: This is a 48-year-old female with recent uncontrolled type 2 insulin-requiring diabetes, now being followed closely for metabolic management. Her glycemic levels are fluctuating but improved as noted overnight with glucose values ranging from 144 to 177 mg/dL. LABORATORY DATA: Her chemistry showed a BUN of 20, sodium 139, potassium 4.7, chloride 101, CO2 of 28, glucose 161 and creatinine 1.1. PLAN: At this time, we will continue the same basal and bolus insulin regimen to allow the dose equilibration and keep her on the Levemir given as 22 units subcu at bedtime daily as given. We will continue the NovoLog given as 12 units subcu t.i.d. before meals as ordered. We will obtain serial chemistries and supplement accordingly as needed. We will follow. Christie Traore MD
--- NOTE | 2018-10-05 10:57 | CP.PCM.PN ---
Subjective - Date & Time of Evaluation Date of Evaluation: 10/05/18 Time of Evaluation: 10:53 - Subjective Subjective: Podiatry Progress Note for Dr. Sullivan 48F seen and evaluated at bedside one day s/p excision of left second digit distal phalanx with primary closure. Patient is AAO x 3 and NAD, resting comfortably in bed. Denies any acute overnight events or new pedal complaints at this time. Patient states that she has very little pain in her foot at this time and says that it is well controlled. Denies any recent N/V/F/C/CP/SOB/D. Objective - Vital Signs/Intake and Output Vital Signs (last 24 hours): Temp Pulse Resp BP Pulse Ox 97.2 F L 103 H 20 110/67 97 10/05/18 07:40 10/05/18 07:40 10/05/18 07:40 10/05/18 07:40 10/05/18 07:40 Intake and Output: 10/05/18 10/05/18 06:59 18:59 Intake Total 350 Balance 350 - Medications Medications: Current Medications Acetaminophen (Tylenol 325mg Tab) 650 mg PO Q6 PRN PRN Reason: Pain, Mild (1-3) Albuterol (Ventolin Hfa 90 Mcg/Actuation (8 G)) 2 puff IH RQ6 PRN PRN Reason: Shortness of Breath Amlodipine Besylate (Norvasc) 2.5 mg PO DAILY [facility] Last Admin: 10/05/18 09:02 Dose: Not Given Clopidogrel Bisulfate (Plavix) 75 mg PO DAILY [facility] Last Admin: 10/05/18 09:02 Dose: Not Given Gabapentin (Neurontin) 300 mg PO TID [facility] Last Admin: 10/05/18 09:02 Dose: Not Given Hydrochlorothiazide (Microzide) 12.5 mg PO DAILY [facility] Last Admin: 10/05/18 09:02 Dose: Not Given Aztreonam 1 gm/ Sodium (Chloride) 100 mls @ 100 mls/hr IVPB Q8H [facility]; Protocol Last Admin: 10/05/18 03:52 Dose: 100 mls/hr Vancomycin/Sodium Chloride (Vancomycin 1 Gm/Ns 200 Ml) 1 gm in 200 mls @ 133 mls/hr IVPB Q12H [facility]; Protocol Stop: 10/07/18 21:01 Last Admin: 10/04/18 09:00 Dose: 200 mls Lactated Ringer's (Lactated Ringer's) 1,000 mls @ 150 mls/hr IV .Q6H40M [facility] Last Admin: 10/04/18 17:00 Dose: 150 mls/hr Insulin Aspart (Novolog) 0 unit SC ACHS [facility] Last Admin: 10/05/18 07:50 Dose: Not Given Insulin Aspart (Novolog) 12 unit SC TIDAC [facility] Last Admin: 10/05/18 07:51 Dose: Not Given Insulin Detemir (Levemir) 22 unit SC HS [facility] Last Admin: 10/04/18 21:49 Dose: 22 units Losartan Potassium (Cozaar) 50 mg PO DAILY [facility] Last Admin: 10/05/18 09:42 Dose: Not Given Metoprolol Succinate (Toprol Xl) 25 mg PO DAILY [facility] Last Admin: 10/05/18 09:41 Dose: 25 mg Oxycodone/Acetaminophen (Percocet 5/325 Mg Tab) 1 tab PO Q6H PRN PRN Reason: Pain, moderate (4-7) Stop: 10/07/18 09:44 Oxycodone/Acetaminophen (Percocet 5/325 Mg Tab) 2 tab PO Q4H PRN PRN Reason: Pain, severe (8-10) Stop: 10/07/18 09:44 Rosuvastatin Calcium (Crestor) 40 mg PO [facility] Last Admin: 10/04/18 21:49 Dose: 40 mg - Labs Labs: 10/04/18 08:18 10/04/18 08:18 PT 12.4 SECONDS (9.7-12.2) H 09/25/18 18:07 INR 1.1 09/25/18 18:07 APTT 32 SECONDS (21-34) 09/25/18 18:07 - Constitutional Appears: Well, Non-toxic, No Acute Distress - Extremities Exam Additional comments: LLE focused exam: VASC: DP and PT faintly palpable 1/4, CFT < 3 seconds to all digits, TG warm to cool on the right and warm to warm on the left NEURO: Epicritic and protective sensation grossly diminished b/l DERM: Incision site at distal tip of left second digit noted to be well coapted with no evidence of dehiscence, no active drainage, no malodor. No active clinical signs of infection at this time ORTHO: minimal pain on palpation to the left 2nd digit, MMT 5/5 in all major muscle groups - Neurological Exam Neurological Exam: Alert, Awake, Oriented x3 - Psychiatric Exam Psychiatric exam: Normal Affect, Normal Mood Assessment and Plan - Assessment and Plan (Free Text) Assessment: 48F seen and evaluated at bedside one day s/p excision of left second digit distal phalanx with primary closure Plan: Patient seen and evaluated Plan discussed with Dr. Sullivan Afebrile Continue abx per ID Continue pain management per primary team Intraop bone cultures pending Wound dressed with xeroform, DSD Dr. Sullivan suggests EMEKA for patient upon discharge if possible with continued abx per ID recommendations Continue PT, WB to heel as tolerated on left foot in surgical shoe Podiatry will continue to follow while patient in house
[2018-10-05] MEDS: Lactated Ringer's 1,000 ML IV SCH ×3 (13:07→20:35)
--- NOTE | 2018-10-05 15:04 | RAD ---
PROCEDURE: Left Foot Radiographs. HISTORY: post op toe 2 left COMPARISON: None available. FINDINGS: BONES: Postoperative appearance of the distal 2nd digit tuft. No acute displaced fracture. Small calcaneal enthesophyte. JOINTS: No dislocation. SOFT TISSUES: Soft tissue swelling. OTHER FINDINGS: Vascular calcifications. IMPRESSION: Postoperative appearance of the distal 2nd digit tuft. Soft tissue swelling.
--- NOTE | 2018-10-05 16:49 | CP.PCM.PN ---
Subjective - Date & Time of Evaluation Date of Evaluation: 10/05/18 Time of Evaluation: 16:46 - Subjective Subjective: Afebrile, in no apparent distress. Objective - Vital Signs/Intake and Output Vital Signs (last 24 hours): Temp Pulse Resp BP Pulse Ox 97.2 F L 103 H 20 110/67 97 10/05/18 07:40 10/05/18 07:40 10/05/18 07:40 10/05/18 07:40 10/05/18 07:40 Intake and Output: 10/05/18 10/05/18 06:59 18:59 Intake Total 350 Balance 350 - Medications Medications: Current Medications Acetaminophen (Tylenol 325mg Tab) 650 mg PO Q6 PRN PRN Reason: Pain, Mild (1-3) Albuterol (Ventolin Hfa 90 Mcg/Actuation (8 G)) 2 puff IH RQ6 PRN PRN Reason: Shortness of Breath Amlodipine Besylate (Norvasc) 2.5 mg PO DAILY [facility] Last Admin: 10/05/18 09:02 Dose: Not Given Clopidogrel Bisulfate (Plavix) 75 mg PO DAILY [facility] Last Admin: 10/05/18 09:02 Dose: Not Given Gabapentin (Neurontin) 300 mg PO TID [facility] Last Admin: 10/05/18 13:07 Dose: Not Given Hydrochlorothiazide (Microzide) 12.5 mg PO DAILY [facility] Last Admin: 10/05/18 09:02 Dose: Not Given Aztreonam 1 gm/ Sodium (Chloride) 100 mls @ 100 mls/hr IVPB Q8H [facility]; Protocol Last Admin: 10/05/18 11:07 Dose: 100 mls/hr Vancomycin/Sodium Chloride (Vancomycin 1 Gm/Ns 200 Ml) 1 gm in 200 mls @ 133 mls/hr IVPB Q12H [facility]; Protocol Stop: 10/07/18 21:01 Last Admin: 10/04/18 09:00 Dose: 200 mls Lactated Ringer's (Lactated Ringer's) 1,000 mls @ 150 mls/hr IV .Q6H40M [facility] Last Admin: 10/05/18 13:07 Dose: Not Given Insulin Aspart (Novolog) 0 unit SC ACHS [facility] Last Admin: 10/05/18 11:16 Dose: Not Given Insulin Aspart (Novolog) 12 unit SC TIDAC [facility] Last Admin: 10/05/18 11:19 Dose: 12 unit Insulin Detemir (Levemir) 22 unit SC HS [facility] Last Admin: 10/04/18 21:49 Dose: 22 units Losartan Potassium (Cozaar) 50 mg PO DAILY [facility] Last Admin: 10/05/18 09:42 Dose: Not Given Metoprolol Succinate (Toprol Xl) 25 mg PO DAILY [facility] Last Admin: 10/05/18 09:41 Dose: 25 mg Oxycodone/Acetaminophen (Percocet 5/325 Mg Tab) 1 tab PO Q6H PRN PRN Reason: Pain, moderate (4-7) Stop: 10/07/18 09:44 Oxycodone/Acetaminophen (Percocet 5/325 Mg Tab) 2 tab PO Q4H PRN PRN Reason: Pain, severe (8-10) Stop: 10/07/18 09:44 Rosuvastatin Calcium (Crestor) 40 mg PO [facility] Last Admin: 10/04/18 21:49 Dose: 40 mg - Labs Labs: 10/04/18 08:18 10/04/18 08:18 PT 12.4 SECONDS (9.7-12.2) H 09/25/18 18:07 INR 1.1 09/25/18 18:07 APTT 32 SECONDS (21-34) 09/25/18 18:07 - Constitutional Appears: Well, Non-toxic, No Acute Distress - Head Exam Head Exam: ATRAUMATIC, NORMAL INSPECTION, NORMOCEPHALIC - Eye Exam Eye Exam: EOMI, Normal appearance Pupil Exam: PERRL - Neck Exam Neck Exam: Full ROM, Normal Inspection - Respiratory Exam Respiratory Exam: Clear to Ausculation Bilateral, NORMAL BREATHING PATTERN - Cardiovascular Exam Cardiovascular Exam: REGULAR RHYTHM, +S1, +S2 - GI/Abdominal Exam GI & Abdominal Exam: Soft, Normal Bowel Sounds - Extremities Exam Extremities Exam: Full ROM (Left Foot: 2nd Digit: S/P Distal Phalanx excision.) Assessment and Plan (1) Acute osteomyelitis of toe of left foot Assessment & Plan: S/P excision of the distal phalanx of the left toe. Continue same treatment. Status: Chronic (2) Diabetic foot infection Status: Acute (3) Cellulitis Status: Acute (4) Diabetes mellitus Assessment & Plan: Continue same treatment. Status: Acute (5) Hypertension Assessment & Plan: Continue same treatment. Status: Acute
[2018-10-05] MEDS ORDERED: Verapamil 2 ML ONE (18:09)
[2018-10-05] MEDS ORDERED: Midazolam 2 MG/2 ML VIAL ONE (18:12)
[2018-10-05] MEDS ORDERED: Iodixanol 320 MG/ML 100 ML BOTTLE IV ONE (18:12)
--- NOTE | 2018-10-05 18:26 | PN ---
DATE: 10/05/2018 LOCATION: Room 369. SUBJECTIVE: This is a 48-year-old female with recent uncontrolled type 2 insulin-requiring diabetes, now being followed closely for metabolic management. Her glycemic values are fluctuating but improved, and the latest glucose levels have ranged from 144 to 169 mg/dL. LABORATORY DATA: Her latest chemistries showed a BUN of 20, sodium 139, potassium 4.7, chloride 101, CO2 of 28, glucose 161 and creatinine 1.1. PLAN: So at this time, we will continue the same basal and bolus insulin regimen to allow for dose equilibration and keep her on the Novolog given as 12 units t.i.d. before meals as ordered. We will also continue the Levemir given as 22 units subcu at bedtime daily as given. We will titrate to optimize metabolic control. We will follow. Christie Traore MD
--- NOTE | 2018-10-05 19:09 | CP.PCM.PN ---
Subjective - Date & Time of Evaluation Date of Evaluation: 10/05/18 Time of Evaluation: 19:05 - Subjective Subjective: Patient s/p Cardiac cath L Main: Patent 2. LAD: Proximal 70-80% stenosis. Mid and distal and Diags diffuse diabetic pattern disease 3. L Cx: OM 90% stenosis 4. RCA: Dominant artery. Distal 85% stenosis. 5. LV: EF 55%, EDP 18, No AV gradient Transfer to ICU ASA, Plavix, Statins, B blockers, DAVID I and Therapeutic Lovenox Multi vessel PCI next week Bed rest 2 hours Monitor labs Objective - Vital Signs/Intake and Output Vital Signs (last 24 hours): Temp Pulse Resp BP Pulse Ox 98.0 F 81 20 124/79 95 10/05/18 17:09 10/05/18 17:09 10/05/18 17:09 10/05/18 17:09 10/05/18 17:09 - Medications Medications: Current Medications Acetaminophen (Tylenol 325mg Tab) 650 mg PO Q6 PRN PRN Reason: Pain, Mild (1-3) Albuterol (Ventolin Hfa 90 Mcg/Actuation (8 G)) 2 puff IH RQ6 PRN PRN Reason: Shortness of Breath Amlodipine Besylate (Norvasc) 2.5 mg PO DAILY [facility] Last Admin: 10/05/18 09:02 Dose: Not Given Aspirin (Ecotrin) 81 mg PO DAILY [facility] Clopidogrel Bisulfate (Plavix) 75 mg PO DAILY [facility] Last Admin: 10/05/18 09:02 Dose: Not Given Enoxaparin Sodium (Lovenox) 60 mg SC Q12 [facility] Gabapentin (Neurontin) 300 mg PO TID [facility] Last Admin: 10/05/18 13:07 Dose: Not Given Hydrochlorothiazide (Microzide) 12.5 mg PO DAILY [facility] Last Admin: 10/05/18 09:02 Dose: Not Given Aztreonam 1 gm/ Sodium (Chloride) 100 mls @ 100 mls/hr IVPB Q8H [facility]; Protocol Last Admin: 10/05/18 11:07 Dose: 100 mls/hr Vancomycin/Sodium Chloride (Vancomycin 1 Gm/Ns 200 Ml) 1 gm in 200 mls @ 133 mls/hr IVPB Q12H [facility]; Protocol Stop: 10/07/18 21:01 Last Admin: 10/04/18 09:00 Dose: 200 mls Lactated Ringer's (Lactated Ringer's) 1,000 mls @ 150 mls/hr IV .Q6H40M [facility] Last Admin: 10/05/18 13:07 Dose: Not Given Insulin Aspart (Novolog) 0 unit SC ACHS [facility] Last Admin: 10/05/18 11:16 Dose: Not Given Insulin Aspart (Novolog) 12 unit SC TIDAC [facility] Last Admin: 10/05/18 11:19 Dose: 12 unit Insulin Detemir (Levemir) 22 unit SC HS [facility] Last Admin: 10/04/18 21:49 Dose: 22 units Losartan Potassium (Cozaar) 50 mg PO DAILY [facility] Last Admin: 10/05/18 09:42 Dose: Not Given Metoprolol Succinate (Toprol Xl) 25 mg PO DAILY [facility] Last Admin: 10/05/18 09:41 Dose: 25 mg Oxycodone/Acetaminophen (Percocet 5/325 Mg Tab) 1 tab PO Q6H PRN PRN Reason: Pain, moderate (4-7) Stop: 10/07/18 09:44 Oxycodone/Acetaminophen (Percocet 5/325 Mg Tab) 2 tab PO Q4H PRN PRN Reason: Pain, severe (8-10) Stop: 10/07/18 09:44 Rosuvastatin Calcium (Crestor) [address] [facility] Last Admin: 10/04/18 21:49 Dose: 40 mg - Labs Labs: 10/04/18 08:18 10/04/18 08:18 PT 12.4 SECONDS (9.7-12.2) H 09/25/18 18:07 INR 1.1 09/25/18 18:07 APTT 32 SECONDS (21-34) 09/25/18 18:07
[2018-10-05] MEDS: Insulin Detemir 100 units/ml Vial (Levemir) SC SCH (22:09)
--- NOTE | 2018-10-05 22:36 | CP.PCM.CON ---
History of Present Illness - History of Present Illness History of Present Illness: Pt is a 48F with PMHx significant for HTN, DM II, HLD & OA who presented to with complaints of left foot pain/paresthesias. Pt states she has had problems with her left leg for quite some time now due to her DM. Pt states she fell 10 days ago and at that time she was discharged from the ER for negative workup. She did however, notice an ulcer on her left 2nd toe and states it was very painful. She reports difficulty ambulating. Denies fevers/chills, nausea/vomiting, chest pain or SOB. Podiatry consulted for L 2nd toe ulcer. Ak scular surgery consulted to evaluate PVD. PMHx: as listed PSHx: gastric bypass, cholecystectomy SocialHx: denies smoking, EtOH/drugs ALL: Penicillins Review of Systems - Review of Systems All systems: reviewed and no additional remarkable complaints except (as per HPI) Physical Exam - Constitutional Appears: Well, No Acute Distress - Head Exam Head Exam: ATRAUMATIC, NORMOCEPHALIC - ENT Exam ENT Exam: Mucous Membranes Moist - Respiratory Exam Respiratory Exam: NORMAL BREATHING PATTERN - Cardiovascular Exam Cardiovascular Exam: RRR - GI/Abdominal Exam GI & Abdominal Exam: Soft - Extremities Exam Additional comments: Left 2nd toe with small ulcer, dressing in place. non-palpable DP/PT, monophasic doppler signals in both DP/PT - Neurological Exam Neurological exam: Alert, Oriented x3 - Skin Skin Exam: Dry, Warm Assessment & Plan - Assessment and Plan (Free Text) Assessment: 48F with multiple cardiac risk factors Abnormal stress test Cardiac cath tomorrow Past Patient History - Past Medical History & Family History Past Medical History?: Yes - Past Social History Smoking Status: Never Smoked - CARDIAC Hx Hypercholesterolemia: Yes Hx Hypertension: Yes - PULMONARY Hx Asthma: Yes - ENDOCRINE/METABOLIC Hx Diabetes Mellitus Type 2: Yes - MUSCULOSKELETAL/RHEUMATOLOGICAL Hx Arthritis: Yes - PSYCHIATRIC Hx Substance Use: No - SURGICAL HISTORY Hx Cholecystectomy: Yes Hx Gastric Bypass Surgery: Yes - ANESTHESIA Hx Anesthesia: Yes Hx Anesthesia Reactions: No Meds Allergies/Adverse Reactions: Allergies Allergy/AdvReac Type Severity Reaction Status Date / Time Penicillins Allergy Intermediate RASH Verified 09/18/18 17:03 - Medications Medications: Current Medications Acetaminophen (Tylenol 325mg Tab) 650 mg PO Q6 PRN PRN Reason: Pain, Mild (1-3) Albuterol (Ventolin Hfa 90 Mcg/Actuation (8 G)) 2 puff IH RQ6 PRN PRN Reason: Shortness of Breath Amlodipine Besylate (Norvasc) 2.5 mg PO DAILY [facility] Last Admin: 10/05/18 09:02 Dose: Not Given Aspirin (Ecotrin) 81 mg PO DAILY [facility] Clopidogrel Bisulfate (Plavix) 75 mg PO DAILY [facility] Last Admin: 10/05/18 09:02 Dose: Not Given Enoxaparin Sodium (Lovenox) 60 mg SC Q12 [facility] Gabapentin (Neurontin) 300 mg PO TID [facility] Last Admin: 10/05/18 20:38 Dose: 300 mg Hydrochlorothiazide (Microzide) 12.5 mg PO DAILY [facility] Last Admin: 10/05/18 09:02 Dose: Not Given Aztreonam 1 gm/ Sodium (Chloride) 100 mls @ 100 mls/hr IVPB Q8H [facility]; Protocol Last Admin: 10/05/18 20:34 Dose: 100 mls/hr Lactated Ringer's (Lactated Ringer's) 1,000 mls @ 150 mls/hr IV .Q6H40M [facility] Last Admin: 10/05/18 20:35 Dose: 150 mls/hr Insulin Aspart (Novolog) 0 unit SC ACHS [facility] Last Admin: 10/05/18 22:05 Dose: Not Given Insulin Aspart (Novolog) 12 unit SC TIDAC [facility] Last Admin: 10/05/18 11:19 Dose: 12 unit Insulin Detemir (Levemir) 22 unit SC HS [facility] Last Admin: 10/05/18 22:09 Dose: 22 units Losartan Potassium (Cozaar) 50 mg PO DAILY [facility] Last Admin: 10/05/18 09:42 Dose: Not Given Metoprolol Succinate (Toprol Xl) 25 mg PO DAILY [facility] Last Admin: 10/05/18 09:41 Dose: 25 mg Oxycodone/Acetaminophen (Percocet 5/325 Mg Tab) 1 tab PO Q6H PRN PRN Reason: Pain, moderate (4-7) Stop: 10/07/18 09:44 Oxycodone/Acetaminophen (Percocet 5/325 Mg Tab) 2 tab PO Q4H PRN PRN Reason: Pain, severe (8-10) Stop: 10/07/18 09:44 Rosuvastatin Calcium (Crestor) 40 mg PO HS [facility] Last Admin: 10/05/18 22:09 Dose: 40 mg Results - Vital Signs Recent Vital Signs: Last Vital Signs Temp 97.7 F 10/05/18 20:18 Pulse 77 10/05/18 22:02 Resp 11 L 10/05/18 22:02 BP 143/75 10/05/18 22:02 Pulse Ox 100 10/05/18 22:02 - Labs Result Diagrams: 10/04/18 08:18 10/04/18 08:18 Labs: Laboratory Results - last 24 hr 10/04/18 10/05/18 10/05/18 21:28 07:16 07:17 POC Glucose (mg/dL) 254 H 144 H Urine HCG, Qual Random Vancomycin 19.1 10/05/18 10/05/18 10/05/18 07:45 11:04 16:32 POC Glucose (mg/dL) 169 H 222 H Urine HCG, Qual Negative Random Vancomycin 10/05/18 22:04 POC Glucose (mg/dL) 203 H Urine HCG, Qual Random Vancomycin
[2018-10-06] MEDS: Lactated Ringer's 1,000 ML IV SCH ×3 (02:00→15:24)
[2018-10-06] MEDS: Aztreonam 1 GM in Sodium Chloride 0.9% 100 ML IVPB SCH ×3 (04:32→19:21)
[2018-10-06 06:24] LABS: BASO # 0.1 K/uL (0.0-0.2); BASO % 0.8 % (0.0-2.0); EOS # 0.8 K/uL (0.0-0.7); EOS % 10.5 % (0.0-4.0); HEMOGLOBIN 10.1 g/dL (11.0-16.0); LYMPH # 2.1 K/uL (1.0-4.3); LYMPH % 27.6 % (20.0-40.0); MEAN CELL VOLUME 77.4 fL (81.0-99.0); MEAN CORPUSCULAR HEMOGLOBIN 25.1 pg (27.0-31.0); MEAN CORPUSCULAR HGB CONC 32.5 g/dL (33.0-37.0); MONO # 0.7 K/uL (0.0-0.8); MONO % 9.1 % (0.0-10.0); RED CELL DISTRIBUTION WIDTH 13.9 % (11.5-14.5); WHITE BLOOD COUNT 7.7 K/uL (4.8-10.8)
[2018-10-06 06:44] LABS: ALB/GLOB RATIO 0.9 (1.0-2.1); ALBUMIN 3.1 g/dL (3.5-5.0); ALT/SGPT 32 U/L (9-52); AST/SGOT 23 U/L (14-36); BLOOD UREA NITROGEN 17 mg/dL (7-17); CALCIUM 8.3 mg/dl (8.6-10.4); GFR NON-AFRICAN AMERICAN 53
[2018-10-06] MEDS: (Novolog) Insulin Aspart, Recombinant 100 u/ml 10 ml vial SC SCH ×8 (07:50→21:36)
--- NOTE | 2018-10-06 09:06 | CP.PCM.PN ---
Subjective - Date & Time of Evaluation Date of Evaluation: 10/06/18 Time of Evaluation: 09:03 - Subjective Subjective: Podiatry Progress Note for Dr. Sullivan 48F seen and evaluated at bedside POD 2 excision of left second digit distal phalanx with primary closure. Seen resting comfortably. Denies any acute overnight events or new pedal complaints at this time. Patient states that she has very little pain in her foot at this time and says that it is well controlled. States she was transferred to the ICU for some heart problems yesterday but denies any current N/V/F/C/CP/SOB/D. Objective - Vital Signs/Intake and Output Vital Signs (last 24 hours): Temp Pulse Resp BP Pulse Ox 97.8 F 73 11 L 137/57 L 99 10/06/18 08:00 10/06/18 08:03 10/06/18 08:03 10/06/18 08:03 10/06/18 08:03 Intake and Output: 10/06/18 10/06/18 06:59 18:59 Intake Total 2200 390 Output Total 600 300 Balance 1600 90 - Medications Medications: Current Medications Acetaminophen (Tylenol 325mg Tab) 650 mg PO Q6 PRN PRN Reason: Pain, Mild (1-3) Albuterol (Ventolin Hfa 90 Mcg/Actuation (8 G)) 2 puff IH RQ6 PRN PRN Reason: Shortness of Breath Amlodipine Besylate (Norvasc) 2.5 mg PO DAILY [facility] Last Admin: 10/05/18 09:02 Dose: Not Given Aspirin (Ecotrin) 81 mg PO DAILY [facility] Clopidogrel Bisulfate (Plavix) 75 mg PO DAILY [facility] Last Admin: 10/05/18 09:02 Dose: Not Given Enoxaparin Sodium (Lovenox) 60 mg SC Q12 [facility] Gabapentin (Neurontin) 300 mg PO TID [facility] Last Admin: 10/05/18 20:38 Dose: 300 mg Hydrochlorothiazide (Microzide) 12.5 mg PO DAILY [facility] Last Admin: 10/05/18 09:02 Dose: Not Given Aztreonam 1 gm/ Sodium (Chloride) 100 mls @ 100 mls/hr IVPB Q8H [facility]; Protocol Last Admin: 10/06/18 04:32 Dose: 100 mls/hr Lactated Ringer's (Lactated Ringer's) 1,000 mls @ 150 mls/hr IV .Q6H40M [facility] Last Admin: 10/06/18 02:00 Dose: Not Given Insulin Aspart (Novolog) 0 unit SC ACHS [facility] Last Admin: 10/06/18 08:04 Dose: Not Given Insulin Aspart (Novolog) 12 unit SC TIDAC [facility] Last Admin: 10/05/18 11:19 Dose: 12 unit Insulin Detemir (Levemir) 22 unit SC HS [facility] Last Admin: 10/05/18 22:09 Dose: 22 units Losartan Potassium (Cozaar) 50 mg PO DAILY [facility] Last Admin: 10/05/18 09:42 Dose: Not Given Metoprolol Succinate (Toprol Xl) 25 mg PO DAILY [facility] Last Admin: 10/05/18 09:41 Dose: 25 mg Oxycodone/Acetaminophen (Percocet 5/325 Mg Tab) 1 tab PO Q6H PRN PRN Reason: Pain, moderate (4-7) Stop: 10/07/18 09:44 Oxycodone/Acetaminophen (Percocet 5/325 Mg Tab) 2 tab PO Q4H PRN PRN Reason: Pain, severe (8-10) Stop: 10/07/18 09:44 Rosuvastatin Calcium (Crestor) 40 mg PO [facility] Last Admin: 10/05/18 22:09 Dose: 40 mg - Labs Labs: 10/06/18 06:19 10/06/18 06:19 PT 12.4 SECONDS (9.7-12.2) H 09/25/18 18:07 INR 1.1 09/25/18 18:07 APTT 32 SECONDS (21-34) 09/25/18 18:07 - Constitutional Appears: Well, Non-toxic, No Acute Distress - Head Exam Head Exam: ATRAUMATIC, NORMOCEPHALIC - Extremities Exam Additional comments: LLE focused exam: VASC: DP and PT faintly palpable 1/4, CFT < 3 seconds to all digits, TG warm to cool on the right and warm to warm on the left NEURO: Epicritic and protective sensation grossly diminished b/l DERM: Incision site at distal tip of left second digit noted to be well coapted with no evidence of dehiscence, no active drainage, no malodor. No active clinical signs of infection at this time ORTHO: minimal pain on palpation to the left 2nd digit, MMT 5/5 in all major muscle groups - Neurological Exam Neurological Exam: Alert, Awake, Oriented x3 - Psychiatric Exam Psychiatric exam: Normal Affect, Normal Mood Assessment and Plan - Assessment and Plan (Free Text) Assessment: 48F seen and evaluated at bedside POD 2 excision of left second digit distal phalanx with primary closure Plan: Patient seen and evaluated with Dr. Sullivan Afebrile Continue abx per ID Continue pain management per primary team Intraop bone cultures pending Wound dressed with xeroform, DSD Dr. Sullivan suggests EMEKA for patient upon discharge if possible with continued abx per ID recommendations Continue PT, WB to heel as tolerated on left foot in surgical shoe Podiatry will continue to follow while patient in house
[2018-10-06] MEDS: Metoprolol Succinate 25 mg XL Tab PO SCH (10:23)
[2018-10-06] MEDS: Enoxaparin 60 mg Syringe SC SCH ×2 (10:26→21:44)
--- NOTE | 2018-10-06 13:17 | PN ---
DATE: 10/06/2018 ENDOCRINOLOGY FOLLOWUP NOTE LOCATION: In ICU, room 6. SUBJECTIVE: This is a 48-year-old female with recent uncontrolled type 2 insulin-requiring diabetes and has been transferred to ICU following a cardiac catheterization procedure whereupon they found multivessel coronary artery stenosis and is being followed closely for hemodynamic monitoring and scheduled for possible angioplasty next week. Her glycemic levels are fluctuating, but improved and the glucose values overnight have ranged from 121 to 151 mg/dL. Her chemistries showed a BUN of 17, sodium 138, potassium 3.8, chloride 105, CO2 of 27, glucose 127, and creatinine 1.1. ASSESSMENT AND PLAN: So at this time, we will continue the same basal and bolus insulin regimen to allow for dose equilibration and keep her on the NovoLog given as 12 units three times a day before meals as ordered. We will continue her Levemir given as 22 units subcu at bedtime daily as given. We will titrate incremental as indicated to optimize metabolic control. We will obtain serial chemistries and supplement accordingly as needed. We will follow. Christie Traore MD
--- NOTE | 2018-10-06 18:00 | CP.PCM.PN ---
Subjective - Date & Time of Evaluation Date of Evaluation: 10/06/18 Time of Evaluation: 17:58 - Subjective Subjective: Patient denies chest pain or shortness of breath. Objective - Vital Signs/Intake and Output Vital Signs (last 24 hours): Temp Pulse Resp BP Pulse Ox 98 F 73 16 138/74 100 10/06/18 12:00 10/06/18 13:00 10/06/18 13:00 10/06/18 12:00 10/06/18 13:00 Intake and Output: 10/06/18 10/06/18 06:59 18:59 Intake Total 2200 1780 Output Total 600 1100 Balance 1600 680 - Medications Medications: Current Medications Acetaminophen (Tylenol 325mg Tab) 650 mg PO Q6 PRN PRN Reason: Pain, Mild (1-3) Albuterol (Ventolin Hfa 90 Mcg/Actuation (8 G)) 2 puff IH RQ6 PRN PRN Reason: Shortness of Breath Amlodipine Besylate (Norvasc) 2.5 mg PO DAILY [facility] Last Admin: 10/06/18 10:24 Dose: 2.5 mg Aspirin (Ecotrin) 81 mg PO DAILY [facility] Last Admin: 10/06/18 10:24 Dose: 81 mg Clopidogrel Bisulfate (Plavix) 75 mg PO DAILY [facility] Last Admin: 10/06/18 10:23 Dose: 75 mg Enoxaparin Sodium (Lovenox) 60 mg SC Q12 [facility] Last Admin: 10/06/18 10:26 Dose: 60 mg Gabapentin (Neurontin) 300 mg PO TID [facility] Last Admin: 10/06/18 14:55 Dose: 300 mg Hydrochlorothiazide (Microzide) 12.5 mg PO DAILY [facility] Last Admin: 10/06/18 10:28 Dose: 12.5 mg Aztreonam 1 gm/ Sodium (Chloride) 100 mls @ 100 mls/hr IVPB Q8H [facility]; Protocol Last Admin: 10/06/18 11:54 Dose: 100 mls/hr Lactated Ringer's (Lactated Ringer's) 1,000 mls @ 150 mls/hr IV .Q6H40M [facility] Last Admin: 10/06/18 15:24 Dose: 150 mls/hr Insulin Aspart (Novolog) 0 unit SC ACHS [facility] Last Admin: 10/06/18 17:04 Dose: Not Given Insulin Aspart (Novolog) 12 unit SC TIDAC [facility] Last Admin: 10/06/18 17:04 Dose: Not Given Insulin Detemir (Levemir) 22 unit SC [facility] Last Admin: 10/05/18 22:09 Dose: 22 units Losartan Potassium (Cozaar) 50 mg PO DAILY [facility] Last Admin: 10/06/18 10:23 Dose: 50 mg Metoprolol Succinate (Toprol Xl) 25 mg PO DAILY [facility] Last Admin: 10/06/18 10:23 Dose: 25 mg Oxycodone/Acetaminophen (Percocet 5/325 Mg Tab) 1 tab PO Q6H PRN PRN Reason: Pain, moderate (4-7) Stop: 10/07/18 09:44 Oxycodone/Acetaminophen (Percocet 5/325 Mg Tab) 2 tab PO Q4H PRN PRN Reason: Pain, severe (8-10) Stop: 10/07/18 09:44 Rosuvastatin Calcium (Crestor) 40 mg PO [facility] Last Admin: 10/05/18 22:09 Dose: 40 mg - Labs Labs: 10/06/18 06:19 10/06/18 06:19 PT 12.4 SECONDS (9.7-12.2) H 09/25/18 18:07 INR 1.1 09/25/18 18:07 APTT 32 SECONDS (21-34) 09/25/18 18:07 - Constitutional Appears: Well, Non-toxic, No Acute Distress - Head Exam Head Exam: ATRAUMATIC, NORMAL INSPECTION, NORMOCEPHALIC - Neck Exam Neck Exam: Full ROM, Normal Inspection - Respiratory Exam Respiratory Exam: Clear to Ausculation Bilateral, NORMAL BREATHING PATTERN - Cardiovascular Exam Cardiovascular Exam: REGULAR RHYTHM, +S1, +S2 - GI/Abdominal Exam GI & Abdominal Exam: Soft, Normal Bowel Sounds - Rectal Exam Rectal Exam: Deferred - Extremities Exam Extremities Exam: Full ROM, Normal Capillary Refill, Normal Inspection - Back Exam Back Exam: Full ROM, NORMAL INSPECTION - Neurological Exam Neurological Exam: Alert, Awake, CN II-XII Intact, Oriented x3 Assessment and Plan (1) Triple vessel coronary artery disease Assessment & Plan: ASA + Clopidogrel + Lovenox Therapeutic + Beta Blockers + DAVID Inhibitor + Statin. PCI next week. Status: Acute (2) Acute osteomyelitis of toe of left foot Assessment & Plan: Continue same treatment. Status: Chronic (3) Diabetic foot infection Status: Acute (4) Diabetes mellitus Assessment & Plan: Continue same treatment. Status: Acute (5) Hypertension Assessment & Plan: Continue same treatment. Status: Acute (6) Cellulitis Status: Acute
[2018-10-06] MEDS: Insulin Detemir 100 units/ml Vial (Levemir) SC SCH (21:43)
[2018-10-07] MEDS: Aztreonam 1 GM in Sodium Chloride 0.9% 100 ML IVPB SCH ×3 (04:06→20:12)
[2018-10-07] MEDS: Lactated Ringer's 1,000 ML IV SCH ×3 (04:40→21:01)
[2018-10-07] MEDS: (Novolog) Insulin Aspart, Recombinant 100 u/ml 10 ml vial SC SCH ×7 (08:00→21:51)
[2018-10-07] MEDS: Enoxaparin 60 mg Syringe SC SCH ×2 (10:46→21:53)
[2018-10-07] MEDS: Metoprolol Succinate 25 mg XL Tab PO SCH (10:46)
--- NOTE | 2018-10-07 13:07 | CP.PCM.PN ---
Subjective - Date & Time of Evaluation Date of Evaluation: 10/07/18 Time of Evaluation: 13:06 - Subjective Subjective: Podiatry Progress Note for Dr. Sullivan 48F seen and evaluated at bedside POD 3 excision of left second digit distal phalanx with primary closure. Seen resting comfortably. Denies any acute overnight events or new pedal complaints at this time. Still remains in ICU for observation. Denies any current N/V/F/C/CP/SOB/D. Objective - Vital Signs/Intake and Output Vital Signs (last 24 hours): Temp Pulse Resp BP Pulse Ox 98.2 F 78 18 118/59 L 98 10/07/18 04:00 10/07/18 04:00 10/07/18 04:00 10/07/18 04:00 10/07/18 04:00 Intake and Output: 10/07/18 10/07/18 06:59 18:59 Intake Total 150 Balance 150 - Medications Medications: Current Medications Acetaminophen (Tylenol 325mg Tab) 650 mg PO Q6 PRN PRN Reason: Pain, Mild (1-3) Albuterol (Ventolin Hfa 90 Mcg/Actuation (8 G)) 2 puff IH RQ6 PRN PRN Reason: Shortness of Breath Amlodipine Besylate (Norvasc) 2.5 mg PO DAILY [facility] Last Admin: 10/07/18 10:46 Dose: 2.5 mg Aspirin (Ecotrin) 81 mg PO DAILY [facility] Last Admin: 10/07/18 10:47 Dose: 81 mg Clopidogrel Bisulfate (Plavix) 75 mg PO DAILY [facility] Last Admin: 10/07/18 10:52 Dose: 75 mg Enoxaparin Sodium (Lovenox) 60 mg SC Q12 [facility] Last Admin: 10/07/18 10:46 Dose: 60 mg Gabapentin (Neurontin) 300 mg PO TID [facility] Last Admin: 10/07/18 10:49 Dose: 300 mg Hydrochlorothiazide (Microzide) 12.5 mg PO DAILY [facility] Last Admin: 10/07/18 10:46 Dose: 12.5 mg Aztreonam 1 gm/ Sodium (Chloride) 100 mls @ 100 mls/hr IVPB Q8H [facility]; Protocol Last Admin: 10/07/18 04:06 Dose: 100 mls/hr Insulin Aspart (Novolog) 0 unit SC ACHS [facility] Last Admin: 10/07/18 08:00 Dose: Not Given Insulin Aspart (Novolog) 8 unit SC TIDAC [facility] Insulin Detemir (Levemir) 20 unit SC HS [facility] Losartan Potassium (Cozaar) 50 mg PO DAILY [facility] Last Admin: 10/07/18 10:46 Dose: 50 mg Metoprolol Succinate (Toprol Xl) 25 mg PO DAILY [facility] Last Admin: 10/07/18 10:46 Dose: 25 mg Rosuvastatin Calcium (Crestor) 40 mg PO HS [facility] Last Admin: 10/06/18 21:43 Dose: 40 mg - Labs Labs: 10/06/18 06:19 10/06/18 06:19 PT 12.4 SECONDS (9.7-12.2) H 09/25/18 18:07 INR 1.1 09/25/18 18:07 APTT 32 SECONDS (21-34) 09/25/18 18:07 - Constitutional Appears: Well, Non-toxic, No Acute Distress - Head Exam Head Exam: ATRAUMATIC, NORMOCEPHALIC - Extremities Exam Additional comments: LLE focused exam: VASC: DP and PT faintly palpable 1/4, CFT < 3 seconds to all digits, TG warm to cool on the right and warm to warm on the left NEURO: Epicritic and protective sensation grossly diminished b/l DERM: Incision site at distal tip of left second digit noted to be well coapted with no evidence of dehiscence, no active drainage, no malodor. No active clinical signs of infection at this time ORTHO: minimal pain on palpation to the left 2nd digit, MMT 5/5 in all major muscle groups - Neurological Exam Neurological Exam: Alert, Awake, Oriented x3 - Psychiatric Exam Psychiatric exam: Normal Affect, Normal Mood Assessment and Plan - Assessment and Plan (Free Text) Assessment: 48F seen and evaluated at bedside POD 3 excision of left second digit distal phalanx with primary closure Plan: Patient seen and evaluated Discussed in detail with Dr. Sullivan Afebriálvaro Continue abx per ID Continue pain management per primary team Intraop bone cultures pending Wound dressed with xeroform, DSD Dr. Sullivan suggests EMEKA for patient upon discharge if possible with continued abx per ID recommendations Continue PT, WB to heel as tolerated on left foot in surgical shoe Podiatry will continue to follow while patient in house
--- NOTE | 2018-10-07 13:40 | PN ---
DATE: 10/07/2018 ENDOCRINOLOGY FOLLOWUP NOTE LOCATION: In ICU room 6. SUBJECTIVE: This is a 48-year-old female with recent uncontrolled type 2 insulin-requiring diabetes, now being followed closely in the ICU for hemodynamic management following a recent cardiac catheterization procedure as noted. She has significant multivessel coronary artery disease as noted and will be undergoing percutaneous angioplasty as noted. LABORATORY DATA: Her glycemic profile has been improved over the past two weeks with low normal glycemic values last night as noted. Her glucose levels overnight have ranged from 60 to 144 and 262 mg/dL. ASSESSMENT AND PLAN: So, because of the variability of her oral intake, we will modify her current insulin regimen accordingly to optimize metabolic control. We will lower the NovoLog to 8 units subcutaneously t.i.d. before meals as ordered. We will also lower the basal insulin with Levemir 20 units subcutaneously at bedtime daily as given. We will obtain serial chemistries and supplement accordingly as needed. We will follow. Christie Traore MD
--- NOTE | 2018-10-07 16:38 | CP.PCM.PN ---
Subjective - Date & Time of Evaluation Date of Evaluation: 10/07/18 Time of Evaluation: 06:00 - Subjective Subjective: seen in ICU NAD POD 3 excision of left second digit distal phalanx with primary closure. Objective - Vital Signs/Intake and Output Vital Signs (last 24 hours): Temp Pulse Resp BP Pulse Ox 98.2 F 78 18 118/59 L 98 10/07/18 04:00 10/07/18 04:00 10/07/18 04:00 10/07/18 04:00 10/07/18 04:00 Intake and Output: 10/07/18 10/07/18 06:59 18:59 Intake Total 150 Balance 150 - Medications Medications: Current Medications Acetaminophen (Tylenol 325mg Tab) 650 mg PO Q6 PRN PRN Reason: Pain, Mild (1-3) Albuterol (Ventolin Hfa 90 Mcg/Actuation (8 G)) 2 puff IH RQ6 PRN PRN Reason: Shortness of Breath Amlodipine Besylate (Norvasc) 2.5 mg PO DAILY [facility] Last Admin: 10/07/18 10:46 Dose: 2.5 mg Aspirin (Ecotrin) 81 mg PO DAILY [facility] Last Admin: 10/07/18 10:47 Dose: 81 mg Clopidogrel Bisulfate (Plavix) 75 mg PO DAILY [facility] Last Admin: 10/07/18 10:52 Dose: 75 mg Enoxaparin Sodium (Lovenox) 60 mg SC Q12 [facility] Last Admin: 10/07/18 10:46 Dose: 60 mg Gabapentin (Neurontin) 300 mg PO TID [facility] Last Admin: 10/07/18 13:53 Dose: 300 mg Hydrochlorothiazide (Microzide) 12.5 mg PO DAILY [facility] Last Admin: 10/07/18 10:46 Dose: 12.5 mg Aztreonam 1 gm/ Sodium (Chloride) 100 mls @ 100 mls/hr IVPB Q8H [facility]; Protocol Last Admin: 10/07/18 13:47 Dose: 100 mls/hr Lactated Ringer's (Lactated Ringer's) 1,000 mls @ 150 mls/hr IV .Q6H40M [facility] Insulin Aspart (Novolog) 0 unit SC ACHS [facility] Last Admin: 10/07/18 13:39 Dose: Not Given Insulin Aspart (Novolog) 8 unit SC TIDAC [facility] Last Admin: 10/07/18 13:47 Dose: 8 unit Insulin Detemir (Levemir) [address] [facility] Losartan Potassium (Cozaar) 50 mg PO DAILY [facility] Last Admin: 10/07/18 10:46 Dose: 50 mg Metoprolol Succinate (Toprol Xl) 25 mg PO DAILY [facility] Last Admin: 10/07/18 10:46 Dose: 25 mg Rosuvastatin Calcium (Crestor) [address] [facility] Last Admin: 10/06/18 21:43 Dose: 40 mg - Labs Labs: 10/06/18 06:19 10/06/18 06:19 PT 12.4 SECONDS (9.7-12.2) H 09/25/18 18:07 INR 1.1 09/25/18 18:07 APTT 32 SECONDS (21-34) 09/25/18 18:07 - Constitutional Appears: Non-toxic, Chronically Ill - Head Exam Head Exam: NORMOCEPHALIC - Eye Exam Eye Exam: absent: Scleral icterus - ENT Exam ENT Exam: Mucous Membranes Dry - Neck Exam Neck Exam: absent: Lymphadenopathy - Respiratory Exam Respiratory Exam: Decreased Breath Sounds - Cardiovascular Exam Cardiovascular Exam: REGULAR RHYTHM - GI/Abdominal Exam GI & Abdominal Exam: Distended - Rectal Exam Rectal Exam: Deferred - Exam Exam: NORMAL INSPECTION - Extremities Exam Extremities Exam: Pedal Edema Additional comments: wound c/d/i - Back Exam Back Exam: absent: CVA tenderness (L), CVA tenderness (R) - Neurological Exam Neurological Exam: Awake - Psychiatric Exam Psychiatric exam: Depressed - Skin Skin Exam: Dry Assessment and Plan (1) Cellulitis Status: Acute (2) Diabetes mellitus Status: Acute - Assessment and Plan (Free Text) Assessment: POD 3 excision of left second digit distal phalanx with primary closure. cont iv antibiotics 7 days post op
[2018-10-07] MEDS: Vancomycin 1 gm/NS 200 ml 1 GM/200 ML BAG IVPB SCH (18:02)
[2018-10-07] MEDS: Insulin Detemir 100 units/ml Vial (Levemir) SC SCH (21:54)
[2018-10-08] MEDS: Lactated Ringer's 1,000 ML IV SCH ×7 (00:55→16:41)
--- NOTE | 2018-10-08 01:11 | CARDCATH ---
PROCEDURE DATE: 10/05/2018 PROCEDURES: 1. Left heart catheterization. 2. Coronary angiogram. CLINICAL INDICATIONS: 1. Abnormal stress test. 2. Type 1 diabetes. 3. Hypertension. 4. Hyperlipidemia. 5. Peripheral artery disease. REFERRING PHYSICIAN: Ivan Painting MD PERFORMING PHYSICIAN: Berry Palumbo MD DESCRIPTION OF PROCEDURE: After informed consent, the patient was prepped and draped in the usual sterile fashion. A 2% lidocaine was given in the right wrist for local anesthesia. Using micropuncture technique, a 5-E[place]ian sheath was introduced into right radial artery. A JR4 6-E[place]ian diagnostic catheter was engaged into right coronary artery. Contrast injected, and right coronary angiogram was done. Then, the catheter was exchanged to 5-[place]ian [place] catheter. It was difficult to cannulate the left main coronary artery. Then, the catheter was engaged to 6-E[place]ian XB 3.0 guide catheter. The catheter was engaged into left main coronary artery. Contrast injected, and left coronary angiogram was done. The patient tolerated the procedure well. Postprocedure, Terumo radial band applied to right wrist with excellent hemostasis. FINDINGS: 1. Left main coronary artery is patent. 2. Proximal LAD has 70% eccentric lesions. Mid and distal LAD has diffuse narrowing. 3. Left circumflex is patent. Small OM1 has 90% proximal stenosis. 4. Right coronary artery is dominant. PLV has 85% concentric stenosis. 5. LV ejection fraction by echo is normal. IMPRESSION: 1. Diffuse diabetic pattern coronary artery disease. 2. Poor target for coronary artery bypass grafting. 3. Small left obtuse marginal artery, too small to intervene. 4. Recommend elective intervention of the LAD and PLV branches for right coronary artery with drug-eluting stents. Berry Palumbo MD
[2018-10-08] MEDS: Aztreonam 1 GM in Sodium Chloride 0.9% 100 ML IVPB SCH ×3 (04:16→19:33)
[2018-10-08 06:21] LABS: BASO # 0.1 K/uL (0.0-0.2); BASO % 0.8 % (0.0-2.0); EOS # 0.8 K/uL (0.0-0.7); EOS % 9.7 % (0.0-4.0); LYMPH # 2.2 K/uL (1.0-4.3); LYMPH % 27.8 % (20.0-40.0); MEAN CELL VOLUME 77.7 fL (81.0-99.0); MEAN CORPUSCULAR HEMOGLOBIN 25.2 pg (27.0-31.0); MEAN CORPUSCULAR HGB CONC 32.4 g/dL (33.0-37.0); MEAN PLATELET VOLUME 10.7 fL (7.2-11.7); MONO # 0.7 K/uL (0.0-0.8); MONO % 8.7 % (0.0-10.0); NEUT # 4.1 K/uL (1.8-7.0); NRBC % 0.1 % (0.0-2.0); RBC 3.97 Mil/uL (3.80-5.20); RED CELL DISTRIBUTION WIDTH 13.9 % (11.5-14.5); WHITE BLOOD COUNT 7.8 K/uL (4.8-10.8)
[2018-10-08 06:29] LABS: ALB/GLOB RATIO 0.9 (1.0-2.1); ALT/SGPT 24 U/L (9-52); AST/SGOT 15 U/L (14-36); BLOOD UREA NITROGEN 18 mg/dL (7-17); CALCIUM 7.8 mg/dl (8.6-10.4); GFR NON-AFRICAN AMERICAN 59
--- NOTE | 2018-10-08 07:33 | OP ---
PROCEDURE DATE: 10/04/2018 PREOPERATIVE DIAGNOSIS: Acute osteomyelitis of the left second digit distal phalanx. POSTOPERATIVE DIAGNOSIS: Acute osteomyelitis of the left second digit distal phalanx. PROCEDURE: Left second digit distal phalanx excision. SURGEON: Dr. Henry Sullivan DPM. MAPPER: Shante Reynaga, PGY 1. ANESTHESIA: IV sedation with local. ANESTHESIOLOGIST: Dr. Barnes. INDICATION: The patient is a 48-year-old female with the above diagnosis. The patient has exhausted all conservative treatment at this time and now requires surgical intervention. The patient signed the consent after careful explanation of risks, benefits, complications, alternatives for surgical procedure. No guarantees were given nor implied. N.p.o. status was confirmed prior to taking the patient to the OR. PREPARATION: The patient was brought into the operating room and placed on the operating room table in a supine position. Time-out was performed for identification of the correct patient and procedure. After induction of IV sedation, the patient received a total of 10 mL of 1:1 mixture of 0.5% Marcaine plain and 1% lidocaine plain in a local V-block type fashion to the left second digit. The left foot was then prepped and draped in a normal sterile manner and the procedure began. A tourniquet was then inflated at the left ankle to 125 mmHg. DESCRIPTION OF PROCEDURE: Attention was then drawn to the tip of the left second digit where a fish mouth incision was made utilizing a #15 blade. The incision was then extended down through the subcutaneous layers down to the level of the bone. Utilizing a [place] elevator, all periosteal tissue was carefully dissected off the second digit distal phalanx. At this time, utilizing a bone cutter, second digit distal phalanx was excised. All devitalized tissue and bone were then passed from the operative site. The wound was then flushed with copious amounts of sterile normal saline. At this time, 4-0 nylon was used to reapproximate skin edges with simple sutures. The incision site was then dressed with Xeroform, 4 x 4, Kerlix, and light [place] bandage. POSTOPERATIVE CONDITION: The patient tolerated the anesthesia and procedure well and was escorted to the recovery room with vital signs stable and neurovascular status intact to the left foot. The patient maybe weightbearing as tolerated in surgical shoe. Podiatry will continue to follow while she remains inhouse. We will await results of wound culture and bone pathology. Shante Reynaga MD Henry Sullivan DPM
[2018-10-08] MEDS: (Novolog) Insulin Aspart, Recombinant 100 u/ml 10 ml vial SC SCH ×8 (07:58→21:06)
[2018-10-08] MEDS: Enoxaparin 100 mg Syringe SC SCH ×2 (09:44→21:26)
[2018-10-08] MEDS: Metoprolol Succinate 25 mg XL Tab PO SCH (09:44)
--- NOTE | 2018-10-08 10:43 | CP.PCM.PN ---
Subjective - Date & Time of Evaluation Date of Evaluation: 10/08/18 Time of Evaluation: 10:41 - Subjective Subjective: Podiatry Progress Note for Dr. Sullivan 48F seen and evaluated at [facility] four days s/p excision of left second digit distal phalanx with primary closure. Patient is AAO x 3 and NAD, resting comfortably in bed. Denies any acute overnight events or new pedal complaints at this time. Still remains in ICU for observation. Denies any current N/V/F/C/CP/SOB/D. Objective - Vital Signs/Intake and Output Vital Signs (last 24 hours): Temp Pulse Resp BP Pulse Ox 98.4 F 73 18 113/77 98 10/08/18 08:00 10/08/18 08:00 10/08/18 08:00 10/08/18 08:00 10/08/18 08:00 Intake and Output: 10/08/18 10/08/18 06:59 18:59 Intake Total 1900 Output Total 1000 Balance 900 - Medications Medications: Current Medications Acetaminophen (Tylenol 325mg Tab) 650 mg PO Q6 PRN PRN Reason: Pain, Mild (1-3) Albuterol (Ventolin Hfa 90 Mcg/Actuation (8 G)) 2 puff IH RQ6 PRN PRN Reason: Shortness of Breath Amlodipine Besylate (Norvasc) 2.5 mg PO DAILY [facility] Last Admin: 10/08/18 09:45 Dose: 2.5 mg Aspirin (Ecotrin) 81 mg PO DAILY [facility] Last Admin: 10/08/18 09:44 Dose: 81 mg Clopidogrel Bisulfate (Plavix) 75 mg PO DAILY [facility] Last Admin: 10/08/18 09:44 Dose: 75 mg Enoxaparin Sodium (Lovenox) 90 mg SC Q12 [facility] Last Admin: 10/08/18 09:44 Dose: 90 mg Gabapentin (Neurontin) 300 mg PO TID [facility] Last Admin: 10/08/18 09:44 Dose: 300 mg Hydrochlorothiazide (Microzide) 12.5 mg PO DAILY [facility] Last Admin: 10/08/18 09:45 Dose: 12.5 mg Aztreonam 1 gm/ Sodium (Chloride) 100 mls @ 100 mls/hr IVPB Q8H [facility]; Protocol Last Admin: 10/08/18 04:16 Dose: 100 mls/hr Lactated Ringer's (Lactated Ringer's) 1,000 mls @ 150 mls/hr IV .Q6H40M [facility] Last Admin: 10/08/18 09:45 Dose: Not Given Vancomycin/Sodium Chloride (Vancomycin 1 Gm/Ns 200 Ml) 1 gm in 200 mls @ 166.7 mls/hr IVPB Q24H [facility]; Protocol Stop: 10/12/18 16:46 Last Admin: 10/07/18 18:02 Dose: 166.7 mls/hr Insulin Aspart (Novolog) 0 unit SC ACHS [facility] Last Admin: 10/08/18 08:31 Dose: 8 units Insulin Aspart (Novolog) 8 unit SC TIDAC [facility] Last Admin: 10/08/18 08:32 Dose: 8 unit Insulin Detemir (Levemir) 20 unit SC HS [facility] Last Admin: 10/07/18 21:54 Dose: 20 units Losartan Potassium (Cozaar) 50 mg PO DAILY [facility] Last Admin: 10/08/18 09:45 Dose: 50 mg Metoprolol Succinate (Toprol Xl) 25 mg PO DAILY [facility] Last Admin: 10/08/18 09:44 Dose: 25 mg Rosuvastatin Calcium (Crestor) 40 mg PO HS [facility] Last Admin: 10/07/18 21:53 Dose: 40 mg - Labs Labs: 10/08/18 06:05 10/08/18 06:03 PT 12.4 SECONDS (9.7-12.2) H 09/25/18 18:07 INR 1.1 09/25/18 18:07 APTT 32 SECONDS (21-34) 09/25/18 18:07 - Constitutional Appears: Well, Non-toxic, No Acute Distress - Extremities Exam Additional comments: LLE focused exam: VASC: DP and PT faintly palpable 1/4, CFT < 3 seconds to all digits, TG warm to warm WNL b/l NEURO: Epicritic and protective sensation grossly diminished b/l DERM: Incision site at distal tip of left second digit noted to be well coapted with no evidence of dehiscence, no active drainage, no malodor. No active clinical signs of infection at this time ORTHO: minimal pain on palpation to the left 2nd digit improving, MMT 5/5 in all major muscle groups - Neurological Exam Neurological Exam: Alert, Awake, Oriented x3 - Psychiatric Exam Psychiatric exam: Normal Affect, Normal Mood Assessment and Plan - Assessment and Plan (Free Text) Assessment: 48F seen and evaluated at [facility] four days s/p excision of left second digit distal phalanx with primary closure Plan: Patient seen and evaluated with Dr. Sullivan Afebrile, absent leukocytosis Continue abx per ID Intra-op bone cx: No growth Intra-op bone path: No OM Surgical site dressed with betadine, DSD No plan for further surgical intervention at this time Podiatry will continue to follow while patient in house
--- NOTE | 2018-10-08 11:24 | CP.PCM.PN ---
Subjective - Date & Time of Evaluation Date of Evaluation: 10/08/18 Time of Evaluation: 09:00 - Subjective Subjective: comfortable at rest foot wound dry no fever Objective - Vital Signs/Intake and Output Vital Signs (last 24 hours): Temp Pulse Resp BP Pulse Ox 98.4 F 73 18 113/77 98 10/08/18 08:00 10/08/18 08:00 10/08/18 08:00 10/08/18 08:00 10/08/18 08:00 Intake and Output: 10/08/18 10/08/18 06:59 18:59 Intake Total 1900 650 Output Total 1000 Balance 900 650 - Medications Medications: Current Medications Acetaminophen (Tylenol 325mg Tab) 650 mg PO Q6 PRN PRN Reason: Pain, Mild (1-3) Albuterol (Ventolin Hfa 90 Mcg/Actuation (8 G)) 2 puff IH RQ6 PRN PRN Reason: Shortness of Breath Amlodipine Besylate (Norvasc) 2.5 mg PO DAILY [facility] Last Admin: 10/08/18 09:45 Dose: 2.5 mg Aspirin (Ecotrin) 81 mg PO DAILY [facility] Last Admin: 10/08/18 09:44 Dose: 81 mg Clopidogrel Bisulfate (Plavix) 75 mg PO DAILY [facility] Last Admin: 10/08/18 09:44 Dose: 75 mg Enoxaparin Sodium (Lovenox) 90 mg SC Q12 [facility] Last Admin: 10/08/18 09:44 Dose: 90 mg Gabapentin (Neurontin) 300 mg PO TID [facility] Last Admin: 10/08/18 09:44 Dose: 300 mg Hydrochlorothiazide (Microzide) 12.5 mg PO DAILY [facility] Last Admin: 10/08/18 09:45 Dose: 12.5 mg Aztreonam 1 gm/ Sodium (Chloride) 100 mls @ 100 mls/hr IVPB Q8H [facility]; Protocol Last Admin: 10/08/18 04:16 Dose: 100 mls/hr Lactated Ringer's (Lactated Ringer's) 1,000 mls @ 150 mls/hr IV .Q6H40M [facility] Last Admin: 10/08/18 09:45 Dose: Not Given Vancomycin/Sodium Chloride (Vancomycin 1 Gm/Ns 200 Ml) 1 gm in 200 mls @ 166.7 mls/hr IVPB Q24H [facility]; Protocol Stop: 10/12/18 16:46 Last Admin: 10/07/18 18:02 Dose: 166.7 mls/hr Insulin Aspart (Novolog) 0 unit SC ACHS [facility] Last Admin: 10/08/18 08:31 Dose: 8 units Insulin Aspart (Novolog) 8 unit SC TIDAC [facility] Last Admin: 10/08/18 08:32 Dose: 8 unit Insulin Detemir (Levemir) 20 unit SC HS [facility] Last Admin: 10/07/18 21:54 Dose: 20 units Losartan Potassium (Cozaar) 50 mg PO DAILY [facility] Last Admin: 10/08/18 09:45 Dose: 50 mg Metoprolol Succinate (Toprol Xl) 25 mg PO DAILY [facility] Last Admin: 10/08/18 09:44 Dose: 25 mg Rosuvastatin Calcium (Crestor) 40 mg PO HS [facility] Last Admin: 10/07/18 21:53 Dose: 40 mg - Labs Labs: 10/08/18 06:05 10/08/18 06:03 PT 12.4 SECONDS (9.7-12.2) H 09/25/18 18:07 INR 1.1 09/25/18 18:07 APTT 32 SECONDS (21-34) 09/25/18 18:07 - Constitutional Appears: Non-toxic, Chronically Ill - Head Exam Head Exam: NORMOCEPHALIC - Eye Exam Eye Exam: absent: Scleral icterus - ENT Exam ENT Exam: Mucous Membranes Dry - Neck Exam Neck Exam: absent: Lymphadenopathy - Respiratory Exam Respiratory Exam: Decreased Breath Sounds - Cardiovascular Exam Cardiovascular Exam: REGULAR RHYTHM - GI/Abdominal Exam GI & Abdominal Exam: Distended - Rectal Exam Rectal Exam: Deferred - Exam Exam: NORMAL INSPECTION - Extremities Exam Extremities Exam: Pedal Edema - Back Exam Back Exam: absent: CVA tenderness (L), CVA tenderness (R) - Neurological Exam Neurological Exam: Alert, Awake, Oriented x3 Assessment and Plan (1) Cellulitis Status: Acute (2) Diabetes mellitus Status: Acute - Assessment and Plan (Free Text) Assessment: s/p amp 2nd digit right foot/ OM cont IV rx total 7 days post op
--- NOTE | 2018-10-08 12:08 | CP.PCM.PN ---
<Noemí Butler - Last Filed: 10/08/18 12:15> Subjective - Date & Time of Evaluation Date of Evaluation: 10/08/18 Time of Evaluation: 11:00 - Subjective Subjective: Cardiology Follow Up Note Patient was seen and examined at bedside. Patient reports she fells okay today. Patient is for PCI placement for triple vessel disease. Objective - Vital Signs/Intake and Output Vital Signs (last 24 hours): Temp Pulse Resp BP Pulse Ox 98.4 F 73 18 113/77 98 10/08/18 08:00 10/08/18 08:00 10/08/18 08:00 10/08/18 08:00 10/08/18 08:00 Intake and Output: 10/08/18 10/08/18 06:59 18:59 Intake Total 1900 650 Output Total 1000 Balance 900 650 - Medications Medications: Current Medications Acetaminophen (Tylenol 325mg Tab) 650 mg PO Q6 PRN PRN Reason: Pain, Mild (1-3) Albuterol (Ventolin Hfa 90 Mcg/Actuation (8 G)) 2 puff IH RQ6 PRN PRN Reason: Shortness of Breath Amlodipine Besylate (Norvasc) 2.5 mg PO DAILY [facility] Last Admin: 10/08/18 09:45 Dose: 2.5 mg Aspirin (Ecotrin) 81 mg PO DAILY [facility] Last Admin: 10/08/18 09:44 Dose: 81 mg Clopidogrel Bisulfate (Plavix) 75 mg PO DAILY [facility] Last Admin: 10/08/18 09:44 Dose: 75 mg Enoxaparin Sodium (Lovenox) 90 mg SC Q12 [facility] Last Admin: 10/08/18 09:44 Dose: 90 mg Gabapentin (Neurontin) 300 mg PO TID [facility] Last Admin: 10/08/18 09:44 Dose: 300 mg Hydrochlorothiazide (Microzide) 12.5 mg PO DAILY [facility] Last Admin: 10/08/18 09:45 Dose: 12.5 mg Aztreonam 1 gm/ Sodium (Chloride) 100 mls @ 100 mls/hr IVPB Q8H [facility]; Protocol Last Admin: 10/08/18 11:46 Dose: 100 mls/hr Lactated Ringer's (Lactated Ringer's) 1,000 mls @ 150 mls/hr IV .Q6H40M [facility] Last Admin: 10/08/18 09:45 Dose: Not Given Vancomycin/Sodium Chloride (Vancomycin 1 Gm/Ns 200 Ml) 1 gm in 200 mls @ 166.7 mls/hr IVPB Q24H [facility]; Protocol Stop: 10/12/18 16:46 Last Admin: 10/07/18 18:02 Dose: 166.7 mls/hr Insulin Aspart (Novolog) 0 unit SC ACHS [facility] Last Admin: 10/08/18 11:31 Dose: Not Given Insulin Aspart (Novolog) 8 unit SC TIDAC [facility] Last Admin: 10/08/18 11:31 Dose: 8 unit Insulin Detemir (Levemir) 20 unit SC HS [facility] Last Admin: 10/07/18 21:54 Dose: 20 units Losartan Potassium (Cozaar) 50 mg PO DAILY [facility] Last Admin: 10/08/18 09:45 Dose: 50 mg Metoprolol Succinate (Toprol Xl) 25 mg PO DAILY [facility] Last Admin: 10/08/18 09:44 Dose: 25 mg Rosuvastatin Calcium (Crestor) 40 mg PO [facility] Last Admin: 10/07/18 21:53 Dose: 40 mg - Labs Labs: 10/08/18 06:05 10/08/18 06:03 PT 12.4 SECONDS (9.7-12.2) H 09/25/18 18:07 INR 1.1 09/25/18 18:07 APTT 32 SECONDS (21-34) 09/25/18 18:07 - Constitutional Appears: No Acute Distress - Head Exam Head Exam: NORMAL INSPECTION, NORMOCEPHALIC - Eye Exam Eye Exam: EOMI, Normal appearance, PERRL Pupil Exam: NORMAL ACCOMODATION - ENT Exam ENT Exam: Mucous Membranes Moist - Respiratory Exam Respiratory Exam: Clear to Ausculation Bilateral, NORMAL BREATHING PATTERN - Cardiovascular Exam Cardiovascular Exam: REGULAR RHYTHM - GI/Abdominal Exam GI & Abdominal Exam: Soft, Normal Bowel Sounds. absent: Distended, Tenderness - Neurological Exam Neurological Exam: Alert, Awake, Oriented x3 - Psychiatric Exam Psychiatric exam: Normal Affect, Normal Mood - Skin Skin Exam: Dry, Intact, Normal Color, Warm Assessment and Plan - Assessment and Plan (Free Text) Plan: Triple Vessel Disease Hypertension, Uncontrolled Type 1 Diabetes, Hyperlipidemia Imaging: - S/P Cardiac Cath 10/05/18 - LAD: Proximal 70-80% stenosis, L Cx: OM 90% stenosis, RCA: Dominant artery. Distal 85% stenosis, LV: EF 55%; diffuse diabetic pattern Management: - Continue with ASA, Plavix, Metoprolol, Cozaar, therapeutic Lovenox 90mg Q12 - Patient is for PCI placement at [facility] 10/10/18, DELROY in chart Case discussed with Noemí Sanchez DO, PGY2 <Berry Palumbo - Last Filed: 10/08/18 21:56> Objective - Vital Signs/Intake and Output Vital Signs (last 24 hours): Temp Pulse Resp BP Pulse Ox 98.2 F 77 18 125/68 99 10/08/18 17:31 10/08/18 17:31 10/08/18 17:31 10/08/18 17:31 10/08/18 17:31 Intake and Output: 10/08/18 10/09/18 18:59 06:59 Intake Total 650 Balance 650 - Medications Medications: Current Medications Acetaminophen (Tylenol 325mg Tab) 650 mg PO Q6 PRN PRN Reason: Pain, Mild (1-3) Albuterol (Ventolin Hfa 90 Mcg/Actuation (8 G)) 2 puff IH RQ6 PRN PRN Reason: Shortness of Breath Amlodipine Besylate (Norvasc) 2.5 mg PO DAILY [facility] Last Admin: 10/08/18 09:45 Dose: 2.5 mg Aspirin (Ecotrin) 81 mg PO DAILY [facility] Last Admin: 10/08/18 09:44 Dose: 81 mg Clopidogrel Bisulfate (Plavix) 75 mg PO DAILY [facility] Last Admin: 10/08/18 09:44 Dose: 75 mg Enoxaparin Sodium (Lovenox) 90 mg SC Q12 [facility] Last Admin: 10/08/18 21:26 Dose: 90 mg Gabapentin (Neurontin) 300 mg PO TID [facility] Last Admin: 10/08/18 19:32 Dose: 300 mg Hydrochlorothiazide (Microzide) 12.5 mg PO DAILY [facility] Last Admin: 10/08/18 09:45 Dose: 12.5 mg Aztreonam 1 gm/ Sodium (Chloride) 100 mls @ 100 mls/hr IVPB Q8H [facility]; Protocol Last Admin: 10/08/18 19:33 Dose: 100 mls/hr Lactated Ringer's (Lactated Ringer's) 1,000 mls @ 150 mls/hr IV .Q6H40M [facility] Last Admin: 10/08/18 16:41 Dose: 150 mls/hr Vancomycin/Sodium Chloride (Vancomycin 1 Gm/Ns 200 Ml) 1 gm in 200 mls @ 166.7 mls/hr IVPB Q24H [facility]; Protocol Stop: 10/12/18 16:46 Last Admin: 10/08/18 16:41 Dose: 166.7 mls/hr Insulin Aspart (Novolog) 0 unit SC ACHS [facility] Last Admin: 10/08/18 21:06 Dose: Not Given Insulin Aspart (Novolog) 8 unit SC TIDAC [facility] Last Admin: 10/08/18 16:39 Dose: 8 unit Insulin Detemir (Levemir) 20 unit SC HS [facility] Last Admin: 10/08/18 21:26 Dose: 20 units Losartan Potassium (Cozaar) 50 mg PO DAILY [facility] Last Admin: 10/08/18 09:45 Dose: 50 mg Metoprolol Succinate (Toprol Xl) 25 mg PO DAILY [facility] Last Admin: 10/08/18 09:44 Dose: 25 mg Rosuvastatin Calcium (Crestor) 40 mg PO HS [facility] Last Admin: 10/08/18 21:26 Dose: 40 mg - Labs Labs: 10/08/18 06:05 10/08/18 06:03 PT 12.4 SECONDS (9.7-12.2) H 09/25/18 18:07 INR 1.1 09/25/18 18:07 APTT 32 SECONDS (21-34) 09/25/18 18:07 Assessment and Plan - Assessment and Plan (Free Text) Plan: Patient seen and evaluated personally by me Plan of care d/w the resident and as documented
[2018-10-08] MEDS: Vancomycin 1 gm/NS 200 ml 1 GM/200 ML BAG IVPB SCH (16:41)
--- NOTE | 2018-10-08 18:20 | CP.PCM.PN ---
Subjective - Date & Time of Evaluation Date of Evaluation: 10/08/18 Time of Evaluation: 18:17 - Subjective Subjective: Patient denies any Headache, Chest pain, shortness of breath or abdominal pain. Objective - Vital Signs/Intake and Output Vital Signs (last 24 hours): Temp Pulse Resp BP Pulse Ox 98.2 F 77 18 125/68 99 10/08/18 17:31 10/08/18 17:31 10/08/18 17:31 10/08/18 17:31 10/08/18 17:31 Intake and Output: 10/08/18 10/08/18 06:59 18:59 Intake Total 1900 650 Output Total 1000 Balance 900 650 - Medications Medications: Current Medications Acetaminophen (Tylenol 325mg Tab) 650 mg PO Q6 PRN PRN Reason: Pain, Mild (1-3) Albuterol (Ventolin Hfa 90 Mcg/Actuation (8 G)) 2 puff IH RQ6 PRN PRN Reason: Shortness of Breath Amlodipine Besylate (Norvasc) 2.5 mg PO DAILY [facility] Last Admin: 10/08/18 09:45 Dose: 2.5 mg Aspirin (Ecotrin) 81 mg PO DAILY [facility] Last Admin: 10/08/18 09:44 Dose: 81 mg Clopidogrel Bisulfate (Plavix) 75 mg PO DAILY [facility] Last Admin: 10/08/18 09:44 Dose: 75 mg Enoxaparin Sodium (Lovenox) 90 mg SC Q12 [facility] Last Admin: 10/08/18 09:44 Dose: 90 mg Gabapentin (Neurontin) 300 mg PO TID [facility] Last Admin: 10/08/18 14:30 Dose: 300 mg Hydrochlorothiazide (Microzide) 12.5 mg PO DAILY [facility] Last Admin: 10/08/18 09:45 Dose: 12.5 mg Aztreonam 1 gm/ Sodium (Chloride) 100 mls @ 100 mls/hr IVPB Q8H [facility]; Protocol Last Admin: 10/08/18 11:46 Dose: 100 mls/hr Lactated Ringer's (Lactated Ringer's) 1,000 mls @ 150 mls/hr IV .Q6H40M [facility] Last Admin: 10/08/18 16:41 Dose: 150 mls/hr Vancomycin/Sodium Chloride (Vancomycin 1 Gm/Ns 200 Ml) 1 gm in 200 mls @ 166.7 mls/hr IVPB Q24H [facility]; Protocol Stop: 10/12/18 16:46 Last Admin: 10/08/18 16:41 Dose: 166.7 mls/hr Insulin Aspart (Novolog) 0 unit SC ACHS [facility] Last Admin: 10/08/18 16:39 Dose: Not Given Insulin Aspart (Novolog) 8 unit SC TIDAC [facility] Last Admin: 10/08/18 16:39 Dose: 8 unit Insulin Detemir (Levemir) 20 unit SC HS [facility] Last Admin: 10/07/18 21:54 Dose: 20 units Losartan Potassium (Cozaar) 50 mg PO DAILY [facility] Last Admin: 10/08/18 09:45 Dose: 50 mg Metoprolol Succinate (Toprol Xl) 25 mg PO DAILY [facility] Last Admin: 10/08/18 09:44 Dose: 25 mg Rosuvastatin Calcium (Crestor) 40 mg PO [facility] Last Admin: 10/07/18 21:53 Dose: 40 mg - Labs Labs: 10/08/18 06:05 10/08/18 06:03 PT 12.4 SECONDS (9.7-12.2) H 09/25/18 18:07 INR 1.1 09/25/18 18:07 APTT 32 SECONDS (21-34) 09/25/18 18:07 - Constitutional Appears: Well, Non-toxic, No Acute Distress - Head Exam Head Exam: ATRAUMATIC, NORMAL INSPECTION, NORMOCEPHALIC - Eye Exam Eye Exam: EOMI, PERRL - ENT Exam ENT Exam: Mucous Membranes Moist, Normal Exam - Neck Exam Neck Exam: Full ROM, Normal Inspection - Respiratory Exam Respiratory Exam: Clear to Ausculation Bilateral, NORMAL BREATHING PATTERN - Cardiovascular Exam Cardiovascular Exam: REGULAR RHYTHM, +S1, +S2 - GI/Abdominal Exam GI & Abdominal Exam: Soft, Normal Bowel Sounds - Extremities Exam Extremities Exam: Full ROM, Normal Capillary Refill, Normal Inspection - Back Exam Back Exam: Full ROM, NORMAL INSPECTION - Neurological Exam Neurological Exam: Alert, Awake, CN II-XII Intact, Oriented x3 - Psychiatric Exam Psychiatric exam: Normal Affect, Normal Mood - Skin Skin Exam: Dry, Intact, Normal Color Assessment and Plan (1) Triple vessel coronary artery disease Assessment & Plan: Scheduled for PCI. Continue same treatment. Status: Acute (2) Acute osteomyelitis of toe of left foot Assessment & Plan: Continue Antibiotics. Status: Chronic (3) Diabetic foot infection Status: Acute (4) Diabetes mellitus Assessment & Plan: Continue Basal + Bolus Insulin. Status: Acute (5) Hypertension Assessment & Plan: Continue same treatment. Status: Acute (6) Cellulitis Status: Acute
--- NOTE | 2018-10-08 19:47 | PN ---
DATE: 10/08/2018 ENDOCRINOLOGY FOLLOWUP NOTE SUBJECTIVE: This is a 48-year-old female with recent uncontrolled type 2 insulin requiring diabetes, now being followed closely for metabolic management. Her glycemic levels are fluctuating but improved and the latest glucose levels have ranged from 139 to 215 mg/dL. Her latest chemistries showed the BUN of 18, sodium 138, potassium 3.7, chloride 103, CO2 26, glucose 133, and creatinine of 1. So, at this time, we will continue the same basal and bolus insulin regimen to allow for dose equilibration and keep her on the NovoLog given as 8 units t.i.d. before meals as ordered. We will continue the Lantus given as 20 units subcutaneous at bedtime daily as given. We will obtain serial chemistries and supplement accordingly as needed. We will followup and advise accordingly. Christie Traore MD
[2018-10-08] MEDS: Insulin Detemir 100 units/ml Vial (Levemir) SC SCH (21:26)
[2018-10-09 01:37] VITALS: RESP 20
[2018-10-09] MEDS: Aztreonam 1 GM in Sodium Chloride 0.9% 100 ML IVPB SCH ×3 (03:46→20:26)
[2018-10-09] MEDS: Lactated Ringer's 1,000 ML IV SCH (03:48)
[2018-10-09] MEDS: (Novolog) Insulin Aspart, Recombinant 100 u/ml 10 ml vial SC SCH ×7 (08:30→21:30)
[2018-10-09] MEDS: Enoxaparin 100 mg Syringe SC SCH (10:13)
[2018-10-09] MEDS: Metoprolol Succinate 25 mg XL Tab PO SCH (10:13)
--- NOTE | 2018-10-09 16:06 | CP.PCM.PN ---
Subjective - Date & Time of Evaluation Date of Evaluation: 10/09/18 Time of Evaluation: 16:04 - Subjective Subjective: Patient has no new complaints. Objective - Vital Signs/Intake and Output Vital Signs (last 24 hours): Temp Pulse Resp BP Pulse Ox 98.3 F 74 20 121/78 97 10/09/18 07:00 10/09/18 07:00 10/09/18 07:00 10/09/18 07:00 10/09/18 07:00 Intake and Output: 10/09/18 10/09/18 06:59 18:59 Intake Total 1840 Output Total 700 Balance 1140 - Medications Medications: Current Medications Acetaminophen (Tylenol 325mg Tab) 650 mg PO Q6 PRN PRN Reason: Pain, Mild (1-3) Albuterol (Ventolin Hfa 90 Mcg/Actuation (8 G)) 2 puff IH RQ6 PRN PRN Reason: Shortness of Breath Amlodipine Besylate (Norvasc) 2.5 mg PO DAILY [facility] Last Admin: 10/09/18 10:13 Dose: 2.5 mg Aspirin (Ecotrin) 81 mg PO DAILY [facility] Last Admin: 10/09/18 10:13 Dose: 81 mg Clopidogrel Bisulfate (Plavix) 75 mg PO DAILY [facility] Last Admin: 10/09/18 10:13 Dose: 75 mg Enoxaparin Sodium (Lovenox) 90 mg SC Q12 [facility] Last Admin: 10/09/18 10:13 Dose: 90 mg Gabapentin (Neurontin) 300 mg PO TID [facility] Last Admin: 10/09/18 14:35 Dose: 300 mg Hydrochlorothiazide (Microzide) 12.5 mg PO DAILY [facility] Last Admin: 10/09/18 10:13 Dose: 12.5 mg Aztreonam 1 gm/ Sodium (Chloride) 100 mls @ 100 mls/hr IVPB Q8H [facility]; Protocol Last Admin: 10/09/18 12:44 Dose: 100 mls/hr Vancomycin/Sodium Chloride (Vancomycin 1 Gm/Ns 200 Ml) 1 gm in 200 mls @ 166.7 mls/hr IVPB Q24H [facility]; Protocol Stop: 10/12/18 16:46 Last Admin: 10/08/18 16:41 Dose: 166.7 mls/hr Insulin Aspart (Novolog) 0 unit SC ACHS [facility] Last Admin: 10/09/18 12:30 Dose: Not Given Insulin Aspart (Novolog) 8 unit SC TIDAC [facility] Last Admin: 10/09/18 12:30 Dose: 8 unit Insulin Detemir (Levemir) 20 unit SC [facility] Last Admin: 10/08/18 21:26 Dose: 20 units Losartan Potassium (Cozaar) 50 mg PO DAILY [facility] Last Admin: 10/09/18 10:13 Dose: 50 mg Metoprolol Succinate (Toprol Xl) 25 mg PO DAILY [facility] Last Admin: 10/09/18 10:13 Dose: 25 mg Rosuvastatin Calcium (Crestor) 40 mg PO [facility] Last Admin: 10/08/18 21:26 Dose: 40 mg - Labs Labs: 10/08/18 06:05 10/08/18 06:03 PT 12.4 SECONDS (9.7-12.2) H 09/25/18 18:07 INR 1.1 09/25/18 18:07 APTT 32 SECONDS (21-34) 09/25/18 18:07 - Constitutional Appears: Well, Non-toxic, No Acute Distress - Head Exam Head Exam: ATRAUMATIC, NORMAL INSPECTION, NORMOCEPHALIC - Neck Exam Neck Exam: Full ROM, Normal Inspection - Respiratory Exam Respiratory Exam: Clear to Ausculation Bilateral, NORMAL BREATHING PATTERN - Cardiovascular Exam Cardiovascular Exam: REGULAR RHYTHM, +S1, +S2 - GI/Abdominal Exam GI & Abdominal Exam: Soft, Normal Bowel Sounds - Back Exam Back Exam: Full ROM, NORMAL INSPECTION - Neurological Exam Neurological Exam: Alert, Awake, CN II-XII Intact, Normal Gait, Oriented x3 Assessment and Plan (1) Triple vessel coronary artery disease Assessment & Plan: Scheduled for PCI in AM. Continue same treatment. Status: Acute (2) Acute osteomyelitis of toe of left foot Assessment & Plan: Continue IV Antibiotic. Status: Chronic (3) Diabetic foot infection Status: Acute (4) Diabetes mellitus Assessment & Plan: Continue Basal + Bolus Insulin. Status: Acute (5) Hypertension Assessment & Plan: Continue same treatment. Status: Acute (6) Cellulitis Status: Acute
[2018-10-09] MEDS: Vancomycin 1 gm/NS 200 ml 1 GM/200 ML BAG IVPB SCH (17:14)
--- NOTE | 2018-10-09 17:54 | CP.PCM.PN ---
Subjective - Date & Time of Evaluation Date of Evaluation: 10/09/18 Time of Evaluation: 17:51 - Subjective Subjective: Podiatry Progress Note for Dr. Sullivan 48F [facility]p excision of left second digit distal phalanx with primary closure. Patient is AAO x 3 and NAD, resting comfortably in bed. Denies any acute overnight events or new pedal complaints at this time. States that pain is well controlled. Denies any current N/V/F/C/CP/SOB/D. Objective - Vital Signs/Intake and Output Vital Signs (last 24 hours): Temp Pulse Resp BP Pulse Ox 98.2 F 74 20 119/76 100 10/09/18 15:05 10/09/18 16:00 10/09/18 15:05 10/09/18 15:05 10/09/18 15:05 Intake and Output: 10/09/18 10/09/18 06:59 18:59 Intake Total 1840 1200 Output Total 700 Balance 1140 1200 - Medications Medications: Current Medications Acetaminophen (Tylenol 325mg Tab) 650 mg PO Q6 PRN PRN Reason: Pain, Mild (1-3) Albuterol (Ventolin Hfa 90 Mcg/Actuation (8 G)) 2 puff IH RQ6 PRN PRN Reason: Shortness of Breath Amlodipine Besylate (Norvasc) 2.5 mg PO DAILY [facility] Last Admin: 10/09/18 10:13 Dose: 2.5 mg Aspirin (Ecotrin) 81 mg PO DAILY [facility] Last Admin: 10/09/18 10:13 Dose: 81 mg Clopidogrel Bisulfate (Plavix) 75 mg PO DAILY [facility] Last Admin: 10/09/18 10:13 Dose: 75 mg Enoxaparin Sodium (Lovenox) 90 mg SC Q12 [facility] Last Admin: 10/09/18 10:13 Dose: 90 mg Gabapentin (Neurontin) 300 mg PO TID [facility] Last Admin: 10/09/18 14:35 Dose: 300 mg Hydrochlorothiazide (Microzide) 12.5 mg PO DAILY [facility] Last Admin: 10/09/18 10:13 Dose: 12.5 mg Aztreonam 1 gm/ Sodium (Chloride) 100 mls @ 100 mls/hr IVPB Q8H [facility]; Protocol Last Admin: 10/09/18 12:44 Dose: 100 mls/hr Vancomycin/Sodium Chloride (Vancomycin 1 Gm/Ns 200 Ml) 1 gm in 200 mls @ 166.7 mls/hr IVPB Q24H [facility]; Protocol Stop: 10/12/18 16:46 Last Admin: 10/09/18 17:14 Dose: 166.7 mls/hr Insulin Aspart (Novolog) 0 unit SC ACHS [facility] Last Admin: 10/09/18 17:09 Dose: Not Given Insulin Aspart (Novolog) 8 unit SC TIDAC [facility] Last Admin: 10/09/18 17:14 Dose: 8 unit Insulin Detemir (Levemir) 20 unit SC HS [facility] Last Admin: 10/08/18 21:26 Dose: 20 units Losartan Potassium (Cozaar) 50 mg PO DAILY [facility] Last Admin: 10/09/18 10:13 Dose: 50 mg Metoprolol Succinate (Toprol Xl) 25 mg PO DAILY [facility] Last Admin: 10/09/18 10:13 Dose: 25 mg Rosuvastatin Calcium (Crestor) 40 mg PO [facility] Last Admin: 10/08/18 21:26 Dose: 40 mg - Labs Labs: 10/08/18 06:05 10/08/18 06:03 PT 12.4 SECONDS (9.7-12.2) H 09/25/18 18:07 INR 1.1 09/25/18 18:07 APTT 32 SECONDS (21-34) 09/25/18 18:07 - Constitutional Appears: Well, Non-toxic, No Acute Distress - Extremities Exam Additional comments: LLE focused exam: VASC: DP and PT faintly palpable 1/4, CFT < 3 seconds to all digits, TG warm to warm WNL b/l NEURO: Epicritic and protective sensation grossly diminished b/l DERM: Incision site at distal tip of left second digit noted to be well coapted with no evidence of dehiscence, no active drainage, no malodor. No active clinical signs of infection at this time ORTHO: No pain on palpation to the left 2nd digit, MMT 5/5 in all major muscle groups - Neurological Exam Neurological Exam: Alert, Awake, Oriented x3 - Psychiatric Exam Psychiatric exam: Normal Affect, Normal Mood Assessment and Plan - Assessment and Plan (Free Text) Assessment: 48F [facility] s/p excision of left second digit distal phalanx with primary closure Plan: Patient seen and evaluated Plan discussed with Dr. Sullivan Afebrile Continue abx per ID Intra-op bone cx: No growth Intra-op bone path: No OM Surgical site dressed with betadine, DSD No plan for further surgical intervention at this time Podiatry will continue to follow while patient in house Upon discharge patient will follow up with Dr. Sullivan
--- NOTE | 2018-10-09 18:55 | CARD ---
APPROVED REPORT Date of service: 10/03/2018 Protocol: LEXISCAN Test Type: LEXISCAN STRESS Test Indications: PRE OP Medications: LIST Target HR: 171 bpm Resting ECG: normal Resting Heart Rate: 68 bpm Resting Blood Pressure: 122/80mmHg submaximum (85%): 145 bpm TEST SUMMARY [id number].[id number]/80.0. INFUSIONDOSE 100:300.00.01.067/.0. [id number]/80.0. PROCEDURE Pharmacologic stress testing was performed using 0.4mg per 5ml of regadenoson given intravenously over 7-10 seconds. POST EXERCISE Reason for Termination: Protocol Completed Target HR: No Max HR: 67 bpm 49% of Maximum Predicted HR: 171 bpm Exercise duration: 00:30 min:sec, 0 Stage Exercise capacity: 1.0METs Max Blood Pressure: 124/80mmHg Blood Pressure response to exercise: normal resting BP - appropriate response Heart Rate response to exercise: appropriate Chest Pain: No, none Angina index: 0 Arrhythmia: No, none ST Change: No, none Deviation: 0 mm INTERPRETATION Stress EKG Conclusion: NEGATIVE LEXISCAN STRESS TEST NORMAL BP RESPONSE TO LEXISCAN NUCLEAR STUDIES TO BE READ SEPARATELY EXAM: Myocardial Perfusion STRESS/REST Imaging Protocol The imaging protocol used to acquire images was Stress Tc-99m/rest Tc-99m 1 day Stress Spect myocardial perfusion imaging was performed in supine position 41 minutes following the injection of 12.4 mCi of Tc-99 Myoview. Gated Rest Spect was performed 41 minutes after intravenous 33 mCi Tc-99 Myoview injection. The images were gated to evaluate regional wall motion and calculate ventricular ejection fraction.Images were reconstructed using backfilter projection method in short horizontal and verticle long axis. Spect slices were generated. RESTING DATA EDV62.23axOQ0.60L/min1/3 Pk. Filling Rate1.44EDV/sec LV Time to Pk. Filling Cxip148.77msec ESV12.00mlMyocardial Xzyg861.00gLV Time to Pk. Ejection Olio409.26msec Pk. Fill Rate3.98EDV/secAv. Heart Rate74.00bpm EF81.00%Pk. Emptying Rate4.35ESV/sec STRESS DATA EDV71.34zsQS5.20L/min ESV13.00mlMyocardial Uonp807.00g Pk. Fill Rate3.08EDV/sec EF82.00%Pk. Emptying Rate3.43ESV/sec 1/3 Pk. Filling Rate1.54EDV/secRegional WT score at stress:0.00 LV Time to Pk. Filling Rate:138.76msecRegional WM score at stress:0.00 LV Time to Pk. Ejection Rate:243.91msecSummed WT score at stress:0.00 Av. Heart Rate73.00bpmSummed WM score at stress:0.00 LV Perf. Quant 17 Seg. SSS3.00 17 Seg. SRS0.00 17 Seg. SDS3.00 Stress Defect Extent (% LAD)3.80Rest Defect Extent (% LAD)0.00Rev. Defect Extent (% LAD)3.80 Stress Defect Extent (% LCX)15.00Rest Defect Extent (% LCX)0.00Rev. Defect Extent (% LCX)8.80 Stress Defect Extent (% RCA)0.00Rest Defect Extent (% RCA)0.00Rev. Defect Extent (% RCA)0.00 Stress Defect Extent (% MARILOU)7.20Rest Defect Extent (% MARILOU)0.00Rev. Defect Extent (% MARILOU)5.70 Other Information Quality:Good IMPRESSION Abnormal Myocardial Perfusion exercise stress study Left Ventricle LV Function:Left ventricle systolic function is normal. The Ejection Fraction is >55%. Conclusion 1. There is moderate sized apical reversible stress induced perfusion defect suggestive of CAD. Normal EF
--- NOTE | 2018-10-09 20:47 | PN ---
DATE: 10/09/2018 ENDOCRINOLOGY FOLLOWUP NOTE LOCATION: Room 663. This is a 48-year-old female with recent uncontrolled type 2 insulin-requiring diabetes, now being followed closely for metabolic management. Her glycemic levels are fluctuating but improved, and the latest glucose levels have ranged from 173 to 279 mg/dL. It was 148 at bedtime last night. The latest chemistries showed a BUN of 18, sodium 138, potassium 3.7, chloride 103, CO2 of 26, glucose 133, and creatinine 1. So at this time, we will continue the same basal and bolus insulin regimen as ordered with NovoLog given as 8 units t.i.d. before meals as given. We will continue the Levemir given as 20 units subcu at bedtime daily as ordered. We will obtain serial chemistries and supplement accordingly as needed. We will follow. Christie Traore MD
--- NOTE | 2018-10-09 20:49 | CP.PCM.PN ---
Subjective - Date & Time of Evaluation Date of Evaluation: 10/09/18 Time of Evaluation: 16:40 - Subjective Subjective: Patient was seen and examined Denies chest pain and dyspnea Physical examination - Constitutional Appears: No Acute Distress - Head Exam Head Exam: NORMAL INSPECTION, NORMOCEPHALIC - Eye Exam Eye Exam: EOMI, Normal appearance, PERRL Pupil Exam: NORMAL ACCOMODATION - ENT Exam ENT Exam: Mucous Membranes Moist - Respiratory Exam Respiratory Exam: Clear to Ausculation Bilateral, NORMAL BREATHING PATTERN - Cardiovascular Exam Cardiovascular Exam: REGULAR RHYTHM - GI/Abdominal Exam GI & Abdominal Exam: Soft, Normal Bowel Sounds. absent: Distended, Tenderness - Neurological Exam Neurological Exam: Alert, Awake, Oriented x3 - Psychiatric Exam Psychiatric exam: Normal Affect, Normal Mood - Skin Skin Exam: Dry, Intact, Normal Color, Warm Assessment and Plan - Assessment and Plan (Free Text) Plan: Triple Vessel Disease Hypertension, Uncontrolled Type 1 Diabetes, Hyperlipidemia Imaging: - S/P Cardiac Cath 10/05/18 - LAD: Proximal 70-80% stenosis, L Cx: OM 90% stenosis, RCA: Dominant artery. Distal 85% stenosis, LV: EF 55%; diffuse diabetic pattern Management: - Continue with ASA, Plavix, Metoprolol, Cozaar, therapeutic Lovenox 90mg Q12 - Patient is for PCI placement at [facility] 10/10/18, [place]RO[place] in chart D/C Therapeutic Lovenox from tomorrow Objective - Vital Signs/Intake and Output Vital Signs (last 24 hours): Temp Pulse Resp BP Pulse Ox 98.2 F 74 20 119/76 100 10/09/18 15:05 10/09/18 16:00 10/09/18 15:05 10/09/18 15:05 10/09/18 15:05 Intake and Output: 10/09/18 10/10/18 18:59 06:59 Intake Total 1200 Balance 1200 - Medications Medications: Current Medications Acetaminophen (Tylenol 325mg Tab) 650 mg PO Q6 PRN PRN Reason: Pain, Mild (1-3) Albuterol (Ventolin Hfa 90 Mcg/Actuation (8 G)) 2 puff IH RQ6 PRN PRN Reason: Shortness of Breath Amlodipine Besylate (Norvasc) 2.5 mg PO DAILY [facility] Last Admin: 10/09/18 10:13 Dose: 2.5 mg Aspirin (Ecotrin) 81 mg PO DAILY [facility] Last Admin: 10/09/18 10:13 Dose: 81 mg Clopidogrel Bisulfate (Plavix) 75 mg PO DAILY [facility] Last Admin: 10/09/18 10:13 Dose: 75 mg Enoxaparin Sodium (Lovenox) 90 mg SC Q12 [facility] Last Admin: 10/09/18 10:13 Dose: 90 mg Gabapentin (Neurontin) 300 mg PO TID [facility] Last Admin: 10/09/18 20:25 Dose: 300 mg Hydrochlorothiazide (Microzide) 12.5 mg PO DAILY [facility] Last Admin: 10/09/18 10:13 Dose: 12.5 mg Aztreonam 1 gm/ Sodium (Chloride) 100 mls @ 100 mls/hr IVPB Q8H [facility]; Protocol Last Admin: 10/09/18 20:26 Dose: 100 mls/hr Vancomycin/Sodium Chloride (Vancomycin 1 Gm/Ns 200 Ml) 1 gm in 200 mls @ 166.7 mls/hr IVPB Q24H [facility]; Protocol Stop: 10/12/18 16:46 Last Admin: 10/09/18 17:14 Dose: 166.7 mls/hr Insulin Aspart (Novolog) 0 unit SC ACHS [facility] Last Admin: 10/09/18 17:09 Dose: Not Given Insulin Aspart (Novolog) 8 unit SC TIDAC [facility] Last Admin: 10/09/18 17:14 Dose: 8 unit Insulin Detemir (Levemir) 20 unit SC HS [facility] Last Admin: 10/08/18 21:26 Dose: 20 units Losartan Potassium (Cozaar) 50 mg PO DAILY [facility] Last Admin: 10/09/18 10:13 Dose: 50 mg Metoprolol Succinate (Toprol Xl) 25 mg PO DAILY [facility] Last Admin: 10/09/18 10:13 Dose: 25 mg Rosuvastatin Calcium (Crestor) 40 mg PO HS [facility] Last Admin: 10/08/18 21:26 Dose: 40 mg - Labs Labs: 10/08/18 06:05 10/08/18 06:03 PT 12.4 SECONDS (9.7-12.2) H 09/25/18 18:07 INR 1.1 09/25/18 18:07 APTT 32 SECONDS (21-34) 09/25/18 18:07
[2018-10-09] MEDS: Insulin Detemir 100 units/ml Vial (Levemir) SC SCH (21:31)
[2018-10-10] MEDS: Aztreonam 1 GM in Sodium Chloride 0.9% 100 ML IVPB SCH ×3 (03:03→21:10)
[2018-10-10 06:30] LABS: BASO # 0.1 K/uL (0.0-0.2); EOS # 0.8 K/uL (0.0-0.7); EOS % 9.9 % (0.0-4.0); HEMOGLOBIN 9.8 g/dL (11.0-16.0); LYMPH # 2.4 K/uL (1.0-4.3); LYMPH % 30.5 % (20.0-40.0); MEAN CELL VOLUME 76.8 fL (81.0-99.0); MEAN CORPUSCULAR HEMOGLOBIN 24.7 pg (27.0-31.0); MEAN CORPUSCULAR HGB CONC 32.2 g/dL (33.0-37.0); MEAN PLATELET VOLUME 10.7 fL (7.2-11.7); MONO # 0.7 K/uL (0.0-0.8); MONO % 8.5 % (0.0-10.0); NEUT # 3.9 K/uL (1.8-7.0); NEUT % 50.1 % (50.0-75.0); RBC 3.98 Mil/uL (3.80-5.20); RED CELL DISTRIBUTION WIDTH 13.7 % (11.5-14.5); WHITE BLOOD COUNT 7.7 K/uL (4.8-10.8)
[2018-10-10 06:32] LABS: ALB/GLOB RATIO 0.9 (1.0-2.1); ALBUMIN 3.2 g/dL (3.5-5.0); ALT/SGPT 32 U/L (9-52); AST/SGOT 31 U/L (14-36); BLOOD UREA NITROGEN 18 mg/dL (7-17); CALCIUM 8.5 mg/dl (8.6-10.4); GFR NON-AFRICAN AMERICAN > 60
[2018-10-10] MEDS: (Novolog) Insulin Aspart, Recombinant 100 u/ml 10 ml vial SC SCH ×7 (07:17→21:47)
[2018-10-10 07:27] LABS: INR 1.2
--- NOTE | 2018-10-10 08:42 | CP.PCM.PN ---
Subjective - Date & Time of Evaluation Date of Evaluation: 10/10/18 Time of Evaluation: 08:00 - Subjective Subjective: Cardiology Follow Up Note Patient was seen and examined at bedside. Patient reports she fells well today. Patient is for PCI placement today at [facility] Objective - Vital Signs/Intake and Output Vital Signs (last 24 hours): Temp Pulse Resp BP Pulse Ox 98.3 F 77 20 137/77 96 10/10/18 04:23 10/10/18 04:23 10/10/18 04:23 10/10/18 04:23 10/10/18 04:23 Intake and Output: 10/10/18 10/10/18 06:59 18:59 Intake Total 720 100 Balance 720 100 - Medications Medications: Current Medications Acetaminophen (Tylenol 325mg Tab) 650 mg PO Q6 PRN PRN Reason: Pain, Mild (1-3) Albuterol (Ventolin Hfa 90 Mcg/Actuation (8 G)) 2 puff IH RQ6 PRN PRN Reason: Shortness of Breath Amlodipine Besylate (Norvasc) 2.5 mg PO DAILY [facility] Last Admin: 10/09/18 10:13 Dose: 2.5 mg Aspirin (Ecotrin) 81 mg PO DAILY [facility] Last Admin: 10/09/18 10:13 Dose: 81 mg Clopidogrel Bisulfate (Plavix) 75 mg PO DAILY [facility] Last Admin: 10/09/18 10:13 Dose: 75 mg Enoxaparin Sodium (Lovenox) 40 mg SC DAILY [facility] Gabapentin (Neurontin) 300 mg PO TID [facility] Last Admin: 10/09/18 20:25 Dose: 300 mg Hydrochlorothiazide (Microzide) 12.5 mg PO DAILY [facility] Last Admin: 10/09/18 10:13 Dose: 12.5 mg Aztreonam 1 gm/ Sodium (Chloride) 100 mls @ 100 mls/hr IVPB Q8H [facility]; Protocol Last Admin: 10/10/18 03:03 Dose: 100 mls/hr Vancomycin/Sodium Chloride (Vancomycin 1 Gm/Ns 200 Ml) 1 gm in 200 mls @ 166.7 mls/hr IVPB Q24H [facility]; Protocol Stop: 10/12/18 16:46 Last Admin: 10/09/18 17:14 Dose: 166.7 mls/hr Insulin Aspart (Novolog) 0 unit SC ACHS [facility] Last Admin: 10/09/18 21:30 Dose: Not Given Insulin Aspart (Novolog) 8 unit SC TIDAC [facility] Last Admin: 10/09/18 17:14 Dose: 8 unit Insulin Detemir (Levemir) 20 unit SC HS [facility] Last Admin: 10/09/18 21:31 Dose: 20 units Losartan Potassium (Cozaar) 50 mg PO DAILY [facility] Last Admin: 10/09/18 10:13 Dose: 50 mg Metoprolol Succinate (Toprol Xl) 25 mg PO DAILY [facility] Last Admin: 10/09/18 10:13 Dose: 25 mg Rosuvastatin Calcium (Crestor) 40 mg PO [facility] Last Admin: 10/09/18 21:08 Dose: 40 mg - Labs Labs: 10/10/18 05:55 10/10/18 05:55 PT 13.0 SECONDS (9.7-12.2) H 10/10/18 07:10 INR 1.2 10/10/18 07:10 APTT 32 SECONDS (21-34) 09/25/18 18:07 - Additional Findings Additional findings: - Constitutional Appears: No Acute Distress - Head Exam Head Exam: NORMAL INSPECTION, NORMOCEPHALIC - Eye Exam Eye Exam: EOMI, Normal appearance, PERRL Pupil Exam: NORMAL ACCOMODATION - ENT Exam ENT Exam: Mucous Membranes Moist - Respiratory Exam Respiratory Exam: Clear to Ausculation Bilateral, NORMAL BREATHING PATTERN - Cardiovascular Exam Cardiovascular Exam: REGULAR RHYTHM - GI/Abdominal Exam GI & Abdominal Exam: Soft, Normal Bowel Sounds. absent: Distended, Tenderness - Neurological Exam Neurological Exam: Alert, Awake, Oriented x3 - Psychiatric Exam Psychiatric exam: Normal Affect, Normal Mood - Skin Skin Exam: Dry, Intact, Normal Color, Warm Assessment and Plan - Assessment and Plan (Free Text) Plan: Triple Vessel Disease Hypertension, Uncontrolled Type 1 Diabetes, Hyperlipidemia Imaging: - S/P Cardiac Cath 10/05/18 - LAD: Proximal 70-80% stenosis, L Cx: OM 90% stenosis, RCA: Dominant artery. Distal 85% stenosis, LV: EF 55%; diffuse diabetic pattern Management: - Continue with ASA, Plavix, Metoprolol, Cozaar, start lovenox 40mg SC daily 10/11/18 (after PCI placement) - Patient is for PCI placement today in [place] 10/10/18DELROY in chart Case discussed with Dr. Palumbo, Noemí Butler DO, PGY2
[2018-10-10] MEDS: Metoprolol Succinate 25 mg XL Tab PO SCH (10:15)
--- NOTE | 2018-10-10 10:19 | CP.PCM.PN ---
Subjective - Date & Time of Evaluation Date of Evaluation: 10/10/18 Time of Evaluation: 10:17 - Subjective Subjective: patient s/p distal RCA ALONSO stent LAD intervention after 4-6 weeks as out patient Ambulate after 2pm today IV hydration Labs in am Plavix for 1 year ASA, Statins, b blockers and DAVID I for life Objective - Vital Signs/Intake and Output Vital Signs (last 24 hours): Temp Pulse Resp BP Pulse Ox 98.3 F 76 20 137/77 96 10/10/18 04:23 10/10/18 07:15 10/10/18 04:23 10/10/18 04:23 10/10/18 04:23 Intake and Output: 10/10/18 10/10/18 06:59 18:59 Intake Total 720 100 Balance 720 100 - Medications Medications: Current Medications Acetaminophen (Tylenol 325mg Tab) 650 mg PO Q6 PRN PRN Reason: Pain, Mild (1-3) Albuterol (Ventolin Hfa 90 Mcg/Actuation (8 G)) 2 puff IH RQ6 PRN PRN Reason: Shortness of Breath Amlodipine Besylate (Norvasc) 2.5 mg PO DAILY [facility] Last Admin: 10/09/18 10:13 Dose: 2.5 mg Aspirin (Ecotrin) 81 mg PO DAILY [facility] Last Admin: 10/09/18 10:13 Dose: 81 mg Clopidogrel Bisulfate (Plavix) 75 mg PO DAILY [facility] Last Admin: 10/09/18 10:13 Dose: 75 mg Enoxaparin Sodium (Lovenox) 40 mg SC DAILY [facility] Gabapentin (Neurontin) 300 mg PO TID [facility] Last Admin: 10/09/18 20:25 Dose: 300 mg Hydrochlorothiazide (Microzide) 12.5 mg PO DAILY [facility] Last Admin: 10/09/18 10:13 Dose: 12.5 mg Aztreonam 1 gm/ Sodium (Chloride) 100 mls @ 100 mls/hr IVPB Q8H [facility]; Protocol Last Admin: 10/10/18 03:03 Dose: 100 mls/hr Vancomycin/Sodium Chloride (Vancomycin 1 Gm/Ns 200 Ml) 1 gm in 200 mls @ 166.7 mls/hr IVPB Q24H [facility]; Protocol Stop: 10/12/18 16:46 Last Admin: 10/09/18 17:14 Dose: 166.7 mls/hr Sodium Chloride (Sodium Chloride 0.9%) 1,000 mls @ 60 mls/hr IV .[id number] [facility] Insulin Aspart (Novolog) 0 unit SC ACHS [facility] Last Admin: 10/09/18 21:30 Dose: Not Given Insulin Aspart (Novolog) 8 unit SC TIDAC [facility] Last Admin: 10/09/18 17:14 Dose: 8 unit Insulin Detemir (Levemir) 20 unit SC HS [facility] Last Admin: 10/09/18 21:31 Dose: 20 units Losartan Potassium (Cozaar) 50 mg PO DAILY [facility] Last Admin: 10/09/18 10:13 Dose: 50 mg Metoprolol Succinate (Toprol Xl) 25 mg PO DAILY [facility] Last Admin: 10/09/18 10:13 Dose: 25 mg Rosuvastatin Calcium (Crestor) 40 mg PO HS [facility] Last Admin: 10/09/18 21:08 Dose: 40 mg - Labs Labs: 10/10/18 05:55 10/10/18 05:55 PT 13.0 SECONDS (9.7-12.2) H 10/10/18 07:10 INR 1.2 10/10/18 07:10 APTT 32 SECONDS (21-34) 09/25/18 18:07
[2018-10-10] MEDS: Sodium Chloride 0.9% 1,000 ML IV SCH ×2 (10:30→21:13)
[2018-10-10] MEDS: Vancomycin 1 gm/NS 200 ml 1 GM/200 ML BAG IVPB SCH (17:08)
--- NOTE | 2018-10-10 18:30 | PN ---
DATE: 10/10/2018 ENDOCRINOLOGY FOLLOWUP NOTE LOCATION: In room 663. SUBJECTIVE: This is a 48-year-old female with recent uncontrolled type 2 insulin-requiring diabetes, now being followed closely for metabolic management. LABORATORY DATA: Her glycemic levels are fluctuating, but improved and the glucose values overnight have ranged from 115 to 149 and 168 mg/dL. Her chemistries showed a BUN of 18, sodium 137, potassium 4.3, chloride 104, CO2 of 28, glucose 124, and creatinine 0.9. ASSESSMENT AND PLAN: So at this time, we will resume the same basal and bolus insulin regimen as ordered as she underwent a percutaneous angioplasty today in [facility]. So at this time, we will continue the same NovoLog dose of 80 units t.i.d. before meals as ordered. We will resume the basal insulin with Levemir given as 20 units subcutaneously at bedtime daily as ordered. We will obtain serial chemistries and supplement accordingly as needed. We will follow. Christie Traore MD
[2018-10-10] MEDS: Insulin Detemir 100 units/ml Vial (Levemir) SC SCH (21:48)
[2018-10-11] MEDS: Aztreonam 1 GM in Sodium Chloride 0.9% 100 ML IVPB SCH (03:38)
[2018-10-11] MEDS: (Novolog) Insulin Aspart, Recombinant 100 u/ml 10 ml vial SC SCH ×2 (08:01→08:06)
[2018-10-11 08:40] LABS: ALB/GLOB RATIO 0.9 (1.0-2.1); ALBUMIN 3.4 g/dL (3.5-5.0); ALT/SGPT 37 U/L (9-52); AST/SGOT 46 U/L (14-36); BLOOD UREA NITROGEN 18 mg/dL (7-17); CALCIUM 8.5 mg/dl (8.6-10.4); GFR NON-AFRICAN AMERICAN > 60
[2018-10-11 08:44] LABS: BASO # 0.1 K/uL (0.0-0.2); BASO % 0.8 % (0.0-2.0); EOS # 0.5 K/uL (0.0-0.7); HEMOGLOBIN 10.5 g/dL (11.0-16.0); LYMPH # 2.3 K/uL (1.0-4.3); LYMPH % 29.8 % (20.0-40.0); MEAN CELL VOLUME 77.3 fL (81.0-99.0); MEAN CORPUSCULAR HGB CONC 32.4 g/dL (33.0-37.0); MEAN PLATELET VOLUME 11.2 fL (7.2-11.7); MONO # 0.7 K/uL (0.0-0.8); MONO % 9.2 % (0.0-10.0); NEUT # 4.2 K/uL (1.8-7.0); NEUT % 53.2 % (50.0-75.0); NRBC % 0.1 % (0.0-2.0); RBC 4.18 Mil/uL (3.80-5.20); RED CELL DISTRIBUTION WIDTH 13.7 % (11.5-14.5); WHITE BLOOD COUNT 7.8 K/uL (4.8-10.8)
[2018-10-11 09:33] VITALS: BP 115/71; PULSE 75; TEMP 98; O2SAT 98
[2018-10-11] MEDS ORDERED: Enoxaparin 40 mg Syringe SC SCH (10:00)
[2018-10-11] MEDS: Metoprolol Succinate 25 mg XL Tab PO SCH (10:42)
--- NOTE | 2018-10-11 11:11 | CP.PCM.PN ---
Subjective - Date & Time of Evaluation Date of Evaluation: 10/11/18 Time of Evaluation: 11:10 - Subjective Subjective: Podiatry Progress Note for Dr. Sullivan 48F seen and evaluated at [facility] five days s/p excision of left second digit distal phalanx with primary closure. Patient is AAO x 3 and NAD, resting comfortably in bed. Denies any acute overnight events or new pedal complaints at this time. States that pain is well controlled. Denies any current N /V/F/C/CP/SOB/D. Objective - Vital Signs/Intake and Output Vital Signs (last 24 hours): Temp Pulse Resp BP Pulse Ox 98.0 F 75 20 115/71 98 10/11/18 09:32 10/11/18 09:32 10/11/18 09:32 10/11/18 09:32 10/11/18 09:32 Intake and Output: 10/11/18 10/11/18 06:59 18:59 Intake Total 420 Balance 420 - Medications Medications: Current Medications Acetaminophen (Tylenol 325mg Tab) 650 mg PO Q6 PRN PRN Reason: Pain, Mild (1-3) Albuterol (Ventolin Hfa 90 Mcg/Actuation (8 G)) 2 puff IH RQ6 PRN PRN Reason: Shortness of Breath Amlodipine Besylate (Norvasc) 2.5 mg PO DAILY [facility] Last Admin: 10/11/18 10:43 Dose: 2.5 mg Aspirin (Ecotrin) 81 mg PO DAILY [facility] Last Admin: 10/11/18 10:42 Dose: 81 mg Clopidogrel Bisulfate (Plavix) 75 mg PO DAILY [facility] Last Admin: 10/11/18 10:42 Dose: 75 mg Enoxaparin Sodium (Lovenox) 40 mg SC DAILY [facility] Last Admin: 10/11/18 10:43 Dose: 40 mg Gabapentin (Neurontin) 300 mg PO TID [facility] Last Admin: 10/11/18 10:42 Dose: 300 mg Hydrochlorothiazide (Microzide) 12.5 mg PO DAILY [facility] Last Admin: 10/11/18 10:42 Dose: 12.5 mg Aztreonam 1 gm/ Sodium (Chloride) 100 mls @ 100 mls/hr IVPB Q8H [facility]; Protocol Last Admin: 10/11/18 03:38 Dose: 100 mls/hr Insulin Aspart (Novolog) 0 unit SC ACHS [facility] Last Admin: 10/11/18 08:01 Dose: Not Given Insulin Aspart (Novolog) 8 unit SC TIDAC [facility] Last Admin: 10/11/18 08:06 Dose: 8 unit Insulin Detemir (Levemir) 20 unit SC HS [facility] Last Admin: 10/10/18 21:48 Dose: 20 units Losartan Potassium (Cozaar) 50 mg PO DAILY [facility] Last Admin: 10/11/18 10:42 Dose: 50 mg Metoprolol Succinate (Toprol Xl) 25 mg PO DAILY [facility] Last Admin: 10/11/18 10:42 Dose: 25 mg Rosuvastatin Calcium (Crestor) 40 mg PO [facility] Last Admin: 10/10/18 21:48 Dose: 40 mg - Labs Labs: 10/11/18 06:58 10/11/18 06:58 PT 13.0 SECONDS (9.7-12.2) H 10/10/18 07:10 INR 1.2 10/10/18 07:10 APTT 32 SECONDS (21-34) 09/25/18 18:07 - Constitutional Appears: Well, Non-toxic - Head Exam Head Exam: ATRAUMATIC - Extremities Exam Additional comments: LLE focused exam: VASC: DP and PT faintly palpable 1/4, CFT < 3 seconds to all digits, TG warm to warm WNL b/l NEURO: Epicritic and protective sensation grossly diminished b/l DERM: Incision site at distal tip of left second digit noted to be well coapted with no evidence of dehiscence, no active drainage, no malodor. No active clinical signs of infection at this time ORTHO: No pain on palpation to the left 2nd digit, MMT 5/5 in all major muscle groups Assessment and Plan - Assessment and Plan (Free Text) Assessment: 48F seen and evaluated at [facility] seven days s/p excision of left second digit distal phalanx with primary closure Plan: Patient seen and evaluated Plan discussed with Dr. Sullivan Afebrile Continue abx per ID Intra-op bone cx: No growth Intra-op bone path: No OM Surgical site dressed with betadine, DSD No plan for further surgical intervention at this time Podiatry will continue to follow while patient in house Upon discharge patient will follow up with Dr. Sullivan
[2018-10-11] MEDS ORDERED: Pneumococcal 23-Valent Vaccine IM ONE (11:23)
[2018-10-11] MEDS ORDERED: Influenza Vaccine 60 MCG/0.5 ML SYR (3 yr & up) IM ONE (11:23)
--- NOTE | 2018-10-11 13:45 | CP.PCM.DIS ---
Provider - Provider Date of Admission: 09/28/18 12:41 Attending physician: Ivan Painting MD Time Spent in preparation of Discharge (in minutes): 30 Diagnosis - Discharge Diagnosis (1) Triple vessel coronary artery disease Status: Acute (2) Acute osteomyelitis of toe of left foot Status: Chronic (3) Diabetic foot infection Status: Acute (4) Diabetes mellitus Status: Acute (5) Hypertension Status: Acute (6) Cellulitis Status: Acute Hospital Course - Lab Results Lab Results: Micro Results 10/08/18 20:52 Naris MRSA Culture - Final MRSA NOT DETECTED 10/04/18 12:35 Bone Gram Stain - Final 10/04/18 12:35 Bone Tissue Culture - Final No growth. 10/05/18 20:44 Nose MRSA Culture (Admit) - Final MRSA NOT DETECTED 09/25/18 18:35 Blood-Venous Blood Culture - Final NO GROWTH AFTER 5 DAYS 09/25/18 18:35 Blood-Venous Gram Stain - Final TEST NOT PERFORMED 09/25/18 18:00 Blood-Venous Blood Culture - Final NO GROWTH AFTER 5 DAYS 09/25/18 18:00 Blood-Venous Gram Stain - Final TEST NOT PERFORMED Most Recent Lab Values WBC 7.8 K/uL (4.8-10.8) 10/11/18 06:58 RBC 4.18 Mil/uL (3.80-5.20) 10/11/18 06:58 Hgb 10.5 g/dL (11.0-16.0) L 10/11/18 06:58 Hct 32.3 % (34.0-47.0) L 10/11/18 06:58 MCV 77.3 fL (81.0-99.0) L 10/11/18 06:58 MCH 25.0 pg (27.0-31.0) L 10/11/18 06:58 MCHC 32.4 g/dL (33.0-37.0) L 10/11/18 06:58 RDW 13.7 % (11.5-14.5) 10/11/18 06:58 Plt Count 222 K/uL (130-400) 10/11/18 06:58 MPV 11.2 fL (7.2-11.7) 10/11/18 06:58 Neut % (Auto) 53.2 % (50.0-75.0) 10/11/18 06:58 Lymph % (Auto) 29.8 % (20.0-40.0) 10/11/18 06:58 [place] % (Auto) 9.2 % (0.0-10.0) 10/11/18 06:58 Eos % (Auto) 7.0 % (0.0-4.0) H 10/11/18 06:58 Baso % (Auto) 0.8 % (0.0-2.0) 10/11/18 06:58 Neut # (Auto) 4.2 K/uL (1.8-7.0) 10/11/18 06:58 Lymph # (Auto) 2.3 K/uL (1.0-4.3) 10/11/18 06:58 [place] # (Auto) 0.7 K/uL (0.0-0.8) 10/11/18 06:58 Eos # (Auto) 0.5 K/uL (0.0-0.7) 10/11/18 06:58 Baso # (Auto) 0.1 K/uL (0.0-0.2) 10/11/18 06:58 ESR 116 mm/hr (0-20) H 09/27/18 08:05 PT 13.0 SECONDS (9.7-12.2) H 10/10/18 07:10 INR 1.2 10/10/18 07:10 APTT 32 SECONDS (21-34) 09/25/18 18:07 D-Dimer, Quantitative 438 ng/mlDDU (0-243) H 09/25/18 18:07 Sodium 138 mmol/L (132-148) 10/11/18 06:58 Potassium 4.3 mmol/L (3.6-5.2) 10/11/18 06:58 Chloride 103 mmol/L (98-107) 10/11/18 06:58 Carbon Dioxide 27 mmol/L (22-30) 10/11/18 06:58 Anion Gap 12 (10-20) 10/11/18 06:58 BUN 18 mg/dL (7-17) H 10/11/18 06:58 Creatinine 0.9 mg/dL (0.7-1.2) 10/11/18 06:58 Est GFR ( Amer) > 60 10/11/18 06:58 Est GFR (Non-Af Amer) > 60 10/11/18 06:58 POC Glucose (mg/dL) 289 mg/dL (65-110) H 10/11/18 11:45 Random Glucose 118 mg/dL (65-105) H 10/11/18 06:58 Hemoglobin A1c 10.9 % (4.2-6.5) H 09/27/18 08:05 Calcium 8.5 mg/dl (8.6-10.4) L 10/11/18 06:58 Phosphorus 3.7 mg/dL (2.5-4.5) 10/11/18 06:58 Magnesium 1.9 mg/dL (1.6-2.3) 10/11/18 06:58 Total Bilirubin 0.6 mg/dL (0.2-1.3) 10/11/18 06:58 AST 46 U/L (14-36) H D 10/11/18 06:58 ALT 37 U/L (9-52) 10/11/18 06:58 Alkaline Phosphatase 111 U/L (38-126) 10/11/18 06:58 C-React Prot High Sens > 15.00 mg/L (1.00-3.00) H 09/27/18 08:05 Total Protein 7.2 g/dL (6.3-8.3) 10/11/18 06:58 Albumin 3.4 g/dL (3.5-5.0) L 10/11/18 06:58 Globulin 3.8 gm/dL (2.2-3.9) 10/11/18 06:58 Albumin/Globulin Ratio 0.9 (1.0-2.1) L 10/11/18 06:58 Triglycerides 180 mg/dL (0-149) H 09/26/18 08:09 Cholesterol 155 mg/dL (0-199) 09/26/18 08:09 LDL Cholesterol Direct 99 mg/dL (0-129) 09/26/18 08:09 HDL Cholesterol 31 mg/dL (30-70) 09/26/18 08:09 Thyroxine (T4) 6.38 ug/dL (5.5-11.0) 09/26/18 08:09 TSH 3rd Generation 1.62 mIU/L (0.46-4.68) 09/26/18 08:09 Cortisol AM Sample 5.5 ug/dL (4.46-22.7) 09/26/18 08:09 Urine HCG, Qual Negative (NEGATIVE) 10/10/18 06:23 Stool Occult Blood Negative (NEGATIVE) 09/27/18 22:58 Stool Occult Blood #2 Negative (NEGATIVE) 09/27/18 22:58 Stool Occult Blood #3 Negative (NEGATIVE) 09/27/18 22:58 Vancomycin Trough 9.7 ug/mL (5.0-10.0) 10/06/18 06:19 Random Vancomycin 19.1 ug/mL 10/05/18 07:17 Discharge Exam - Head Exam Head Exam: ATRAUMATIC Discharge Plan - Follow Up Plan Condition: GOOD Disposition: HOME/ ROUTINE Instructions: Diabetes Exchange Diet, Diabetic Meal Planning , Diabetes and Diet, Cellulitis (DC), Cellulitis (GEN), Hypertension (DC), Hypertension (GEN) Additional Instructions: please get an appointment to follow up with your doctors. please take your medications as instructed by your doctor for any questions please call your Primary Doctor. Referrals: Ivan Painting MD [Staff Provider] - Berry Palumbo MD [Staff Provider] - Christie Traore MD [Medical Doctor] -
--- NOTE | 2018-10-11 15:05 | PN ---
DATE: 10/11/2018 ENDOCRINOLOGY FOLLOWUP NOTE. LOCATION: Room 663. SUBJECTIVE: This is a 48-year-old female with recent uncontrolled type 2 insulin-requiring diabetes, now being followed closely for metabolic management. She underwent a cardiac procedure with percutaneous angioplasty yesterday for multivessel coronary artery disease as noted. LABORATORY DATA: Her glycemic levels have remained remarkably improved and overnight the glucose values have ranged from 112 to 192 mg/dL. Her latest chemistry showed the BUN of 18, sodium 138, potassium 4.3, chloride 103, CO2 of 27, glucose 118, and creatinine 0.9. ASSESSMENT AND PLAN: So, at this time, we will continue the same basal and bolus insulin regime as given with NovoLog given as 8 units t.i.d. before meals as ordered. We will continue the Levemir given as 20 units subcutaneously at bedtime daily as given. We will obtain serial chemistries and supplement accordingly as needed. We will follow. hCristie Traore MD
== END 2018-10-11 12:00 | disposition home or self-care (01) | DRG 617 ==
LOC: C.ER 16:07 → C.9E 18:39 → C.3T 19:37 → OBSVTOIN 09-28 12:41 → C.9I 10-05 20:04 → C.6T 10-08 17:13
PROVIDERS: ADMIT Internal Medicine; ATTEND Internal Medicine
PROC: 0Y6S0Z3 Detachment at Left 2nd Toe, Low, Open Approach (ICD-10-PCS; 2018-10-04)
PROC: 02HV33Z Insertion of Infusion Device into Superior Vena Cava, Percutaneous Approach (ICD-10-PCS; 2018-10-04)
PROC: 4A023N7 Measurement of Cardiac Sampling and Pressure, Left Heart, Percutaneous Approach (ICD-10-PCS; principal; 2018-10-05)
PROC: B2111ZZ Fluoroscopy of Multiple Coronary Arteries using Low Osmolar Contrast (ICD-10-PCS; 2018-10-05)
PROC: B2131ZZ Fluoroscopy of Multiple Coronary Artery Bypass Grafts using Low Osmolar Contrast (ICD-10-PCS; 2018-10-05)
DX: E10.69 Type 1 diabetes mellitus with other specified complication (principal); L03.116 Cellulitis of left lower limb; M86.172 Other acute osteomyelitis, left ankle and foot; Z68.41 Body mass index [BMI] 40.0-44.9, adult; E10.628 Type 1 diabetes mellitus with other skin complications; I25.10 Atherosclerotic heart disease of native coronary artery without angina pectoris; J45.909 Unspecified asthma, uncomplicated; I10 Essential (primary) hypertension; Z79.4 Long term (current) use of insulin; Z95.1 Presence of aortocoronary bypass graft; Z98.84 Bariatric surgery status; E78.5 Hyperlipidemia, unspecified; E10.649 Type 1 diabetes mellitus with hypoglycemia without coma; E10.621 Type 1 diabetes mellitus with foot ulcer; E66.9 Obesity, unspecified